=== PATIENT | male | born 1945 ===

== ENCOUNTER 2020-04-19 08:43 | Inpatient (IN) | payer OTHER, MEDICARE, SELFPAY ==
[2020-04-19] VITALS (9 sets, daily range): BP systolic 134–189; BP diastolic 66–106; PULSE 71–93; RESP 16–24; TEMP 33.3–37.3; O2SAT 94–100; BMI 30.8
--- NOTE | 2020-04-19 | ECG_ITS ---
Test Reason : AFIB Blood Pressure : / mmHG Vent. Rate : 083 BPM Atrial Rate : 088 BPM P-R Int : 000 ms QRS Dur : 106 ms QT Int : 364 ms P-R-T Axes : 000 -05 028 degrees QTc Int : 427 ms Atrial fibrillation Incomplete left bundle branch block Abnormal ECG When compared with ECG of 15-SEP-2008 11:36, Atrial fibrillation has replaced Sinus rhythm Referred By: Deisy Hdz Electronically Signed By:FOX PRITCHETT
--- NOTE | 2020-04-19 09:03 | PC.NURSE ---
put pt on monitor. He is in afib. Pt denies HX of afib and has not heard of it before.
--- NOTE | 2020-04-19 09:11 | XR_ITS ---
EXAMINATION: XR CHEST CLINICAL INFORMATION: Shortness of breath COMPARISON: 03/13/2010 TECHNIQUE: Frontal view of the chest was obtained. FINDINGS: New from the prior study in 2009, there is diffuse coarse interstitial opacity throughout the lungs with some patchy areas of more confluent airspace opacity particularly at the right lung base. A tiny right pleural effusion may be present. Cardiomediastinal silhouette within normal limits for technique. Degenerative changes of the shoulders. XR/XR chest 1V IMPRESSION: New diffuse coarse interstitial opacity throughout the lungs, with patchy areas of more confluent airspace opacity particularly at the right lung base. Although the appearance is nonspecific and could represent an infectious or inflammatory etiology, as well as interstitial pulmonary edema with developing alveolar pulmonary edema, in the appropriate clinical setting viral COVID pneumonitis is a consideration.
--- NOTE | 2020-04-19 09:15 | ED.SOB ---
HPI - SOB/Dyspnea General Chief Complaint: Upper Respiratory Symptoms Stated Complaint: sob Time Seen by Provider: 04/19/20 08:47 History of Present Illness HPI Narrative: Patient is a 74-year-old male with a history of hypertension reflux with multiple medication for hypertension. Presents today with having increasing shortness of breath. Patient denies having chest pain. No leg swelling. No coughing or congestion or upper respiratory symptoms. No fever no chills. No diaphoresis. Patient from home. MD elicited complaint: shortness of breath and cough Pertinent past history: asthma Related Data Home oxygen amount: none Home Medications Medication Instructions Recorded Confirmed allopurinol 100 mg tablet 100 mg PO DAILY 03/23/20 03/23/20 cholecalciferol (vitamin D3) 25 25 mcg PO DAILY 03/23/20 03/23/20 mcg (1,000 unit) capsule Previous Rx's Medication Instructions Recorded metoprolol succinate 100 mg 100 mg PO DAILY 90 Days #90 tab 01/19/20 tablet,extended release 24 hr lisinopril 40 mg tablet 40 mg PO DAILY #30 tab 03/23/20 Allergies Allergy/AdvReac Type Severity Reaction Status Date / Time amlodipine AdvReac Intermediate leg Verified 03/23/20 09:21 swelling Environmental Allergy Mild ITCHY EYES Uncoded 01/05/20 14:48 pollen Allergy Unknown p Uncoded 03/23/20 09:21 RAGWEED Allergy Unknown STUFFY Uncoded 01/05/20 14:48 NOSE WATERY EYES weed Allergy Unknown p Uncoded 03/23/20 09:21 Review of Systems Review of Systems: Constitutional: No Weight loss, No Fever, No Chills, No Night Sweats, No Fatigue, No Malaise ENT/Mouth: No Hearing loss, No Ear Pain, No Nasal Congestion, No Sinus Pain, No Hoarseness, No sore throat, No Rhinorrhea, No Swallowing Difficulty Eyes: No Eye Pain, No Swelling, No Redness, No Foreign Body, No Discharge, No Vision Changes Cardiovascular: No Chest Pain, positive SOB, No Dyspnea on Exertion, No Orthopnea, No Edema, No Palpitations Respiratory: No Cough, No Sputum, positive Wheezing, No Smoke Exposure, positive Dyspnea Gastrointestinal: No Nausea, No Vomiting, No Diarrhea, No Constipation, No abdominal Pain, No Hematochezia, No Melena Genitourinary: no irregular bleeding, No Dysuria, No Urinary Frequency, No Hematuria, No Urinary Incontinence, No Urgency, No Flank Pain, No Urinary Flow Changes, No Hesitancy Musculoskeletal: No joint pain, No Myalgias, No Joint Swelling Skin: No Skin Lesions, No rash Neuro: No Weakness, No Numbness, No Paresthesias, No Loss of Consciousness, No Dizziness, No Headache Psych: No Anxiety/Panic, No Depression, No SI/HI/AH/VH, No Social Issues, Heme/Lymph: No Bruising, No Bleeding,No Lymphadenopathy Endocrine: No Polyuria, No Polydipsia, No Temperature Intolerance [facility] Past Medical History Attestation statement: The following information was validated with the patient. Medical History BPH (benign prostatic hyperplasia) Cervical radiculopathy due to degenerative joint disease of spine Chronic prostatitis GERD (gastroesophageal reflux disease) Gout History of rib fracture Hypercholesterolemia Hypertension Obesity (BMI 30-39.9) Osteoarthritis Vitamin D deficiency Social History Social History Alcohol intake: current Alcohol intake frequency: a few times a week Alcohol type: beer Smoking Status: Never smoker Smoked in Last 30 Days: No Use of substances other than those prescribed or required for medical reasons: No Advance Directives: No Advance Directives Information Provided: No Physical Exam Vital Signs: Vital Signs: Last Vital Signs Temp 99.2 F 04/19/20 11:40 Pulse 89 04/19/20 11:40 Resp 21 H 04/19/20 11:40 BP 134/76 04/19/20 11:40 Pulse Ox 100 04/19/20 11:40 Body Mass Index 30.8 Appearance: Alert. Oriented X3. No acute distress. Eyes: Pupils equal, round and reactive to light. ENT: Pharynx normal. Neck: Normal inspection. Neck supple. No lymph nodes noted. No crepitus CVS: Normal heart rate and rhythm. Pulses normal. Normal S1 and S2 Respiratory: No respiratory distress. Breath sounds normal. Diminished. Positive Wheezing. No rales Abdomen: Soft and nontender. No rigidity. No distention. good BS x4 Skin: Skin warm and dry. Normal skin color. Normal skin turgor. Extremities: No lower extremity edema. Neurovascular intact to all extremities. No Lacerations. No Rash Neuro: Oriented X 3. No motor deficit. No sensory deficit. Moving all extermities. No slurred speech MDM - SOB/Dyspnea MDM Narrative Medical decision making narrative: Patient's EKG showed an atrial fibrillation pattern heart rate is controlled at 75. Patient has no history of atrial fibrillation. Patient's chest x-ray consistent with having bilateral infiltrate CHF. Will start patient on Lasix. Patient's coronavirus test was negative. Patient likely got into an atrial fibrillation pattern and loss of atrial kick. Then went to congestive heart failure. D-dimer is elevated will get a CT scan of the chest to rule out the possibility of PE. Patient is being admitted for new onset atrial fibrillation Differential Diagnosis Differential diagnosis: Likely acute exacerbation of chronic obstructive airways disease, congestive heart failure, pneumonia, asthma with exacerbation, pulmonary embolism and pleural effusion Medical Records Attestation: I reviewed the patient's medical records. Lab Data Attestation: I reviewed the patient's lab results. Result diagrams: 04/19/20 09:40 04/19/20 09:40 Labs: Lab Results 04/19/20 04/19/20 04/19/20 Range/Units 09:40 09:40 09:40 WBC 6.6 (4.8-10.8) X10*3/uL RBC 4.30 L (4.60-5.80) X10*6/uL Hgb 13.7 L (14.0-18.0) g/dl Hct 41.4 L (42-52) % MCV 96.3 (80-98) fL MCH 31.9 (27.0-33.0) pg MCHC 33.1 (31.0-36.0) g/dl RDW 14.3 (11.0-16.0) % Plt Count 159 L (160-400) X10*3/uL MPV 11.0 (9.4-12.4) fL Immature Gran % (Auto) 0.3 (0.0-0.4) % Neut % (Auto) 74.6 H (45-73) % Lymph % (Auto) 15.5 L (20-40) % Morgan % (Auto) 8.6 (2-11) % Eos % (Auto) 0.8 (0-4) % Baso % (Auto) 0.2 (0-2) % Lymph # (Auto) 1.0 L (1.2-4.9) X10*3/uL Morgan # (Auto) 0.6 (0.1-1.2) X10*3/uL Eos # (Auto) 0.1 (0.0-0.4) X10*3/uL Baso # (Auto) 0.0 (0.0-0.2) X10*3/uL Abs Immat Gran (auto) 0.02 (0.00-0.03) X10*3/uL Absolute Neuts (auto) 4.9 (2.0-8.3) X10*3/uL Absolute Nucleated RBC 0.000 (0.0-0.012) X10*3/uL Nucleated RBC % (auto) 0.0 (0.0-0.2) /100WBC D-Dimer 418 NG/ML Hold Blue Top SEE NOTE Sodium 141 (135-145) mmol/L Potassium 3.7 (3.3-5.1) mmol/l Chloride 106 (96-108) mmol/L Carbon Dioxide 26 (22-29) mmol/L Anion Gap 13 (12-20) BUN 19 H (9-16) mg/dL Creatinine 0.95 (0.5-1.4) mg/dL Estim Creat Clear Calc 68.2 Estimated GFR > 60 Random Glucose 119 H (60-115) mg/dL Calcium 8.4 (8.4-10.2) mg/dL Total Bilirubin 0.7 (0.0-1.0) mg/dL Direct Bilirubin 0.3 (0.0-0.5) mg/dL AST 19 (5-37) U/L ALT 21 (0-40) U/L Alkaline Phosphatase 76 (39-117) U/L Troponin I High Sens (<3.5-35.0) ng/L B-Natriuretic Peptide (<100) pg/mL Total Protein 6.5 (6.5-8.0) g/dL Albumin 4.0 (3.5-5.0) g/dL Coronavirus (PCR) (Negative) Influenza Type A (PCR) (Negative) Influenza Type B (PCR) (Negative) RSV RNA Qual (PCR) (Negative) 04/19/20 04/19/20 Range/Units 09:40 09:40 WBC (4.8-10.8) X10*3/uL RBC (4.60-5.80) X10*6/uL Hgb (14.0-18.0) g/dl Hct (42-52) % MCV (80-98) fL MCH (27.0-33.0) pg MCHC (31.0-36.0) g/dl RDW (11.0-16.0) % Plt Count (160-400) X10*3/uL MPV (9.4-12.4) fL Immature Gran % (Auto) (0.0-0.4) % Neut % (Auto) (45-73) % Lymph % (Auto) (20-40) % Morgan % (Auto) (2-11) % Eos % (Auto) (0-4) % Baso % (Auto) (0-2) % Lymph # (Auto) (1.2-4.9) X10*3/uL Morgan # (Auto) (0.1-1.2) X10*3/uL Eos # (Auto) (0.0-0.4) X10*3/uL Baso # (Auto) (0.0-0.2) X10*3/uL Abs Immat Gran (auto) (0.00-0.03) X10*3/uL Absolute Neuts (auto) (2.0-8.3) X10*3/uL Absolute Nucleated RBC (0.0-0.012) X10*3/uL Nucleated RBC % (auto) (0.0-0.2) /100WBC D-Dimer NG/ML Hold Blue Top Sodium (135-145) mmol/L Potassium (3.3-5.1) mmol/l Chloride (96-108) mmol/L Carbon Dioxide (22-29) mmol/L Anion Gap (12-20) BUN (9-16) mg/dL Creatinine (0.5-1.4) mg/dL Estim Creat Clear Calc Estimated GFR Random Glucose (60-115) mg/dL Calcium (8.4-10.2) mg/dL Total Bilirubin (0.0-1.0) mg/dL Direct Bilirubin (0.0-0.5) mg/dL AST (5-37) U/L ALT (0-40) U/L Alkaline Phosphatase (39-117) U/L Troponin I High Sens 4.3 (<3.5-35.0) ng/L B-Natriuretic Peptide 352 H (<100) pg/mL Total Protein (6.5-8.0) g/dL Albumin (3.5-5.0) g/dL Coronavirus (PCR) NEGATIVE (Negative) Influenza Type A (PCR) NEGATIVE (Negative) Influenza Type B (PCR) NEGATIVE (Negative) RSV RNA Qual (PCR) NEGATIVE (Negative) ECG Data Interpretation: Atrial fibrillation heart rate is [address] segment elevation noted. Discharge Plan Discharge Clinical Impression: Atrial fibrillation Patient Disposition: Admitted As Inpatient Prescriptions: No Action metoprolol succinate 100 mg tablet extended release 24 hr 100 mg PO DAILY 90 Days Qty: 90 RF: 2 cholecalciferol (vitamin D3) 25 mcg (1,000 unit) capsule 25 mcg PO DAILY RF: 0 allopurinol 100 mg tablet 100 mg PO DAILY RF: 0 lisinopril 40 mg tablet 40 mg PO DAILY Qty: 30 RF: 3
[2020-04-19] MEDS: Aspirin 81 MG TAB.CHEW 324 MG PO (09:56)
[2020-04-19 10:14] LABS: MANUAL DIFF FLAG NO
[2020-04-19 10:16] LABS: Basophils Percent Auto 0.2 % (0-2); Eosinophils Absolute Auto 0.1 X10*3/uL (0.0-0.4); Eosinophils Percent Auto 0.8 % (0-4); Hematocrit 41.4 % (42-52); Hemoglobin 13.7 g/dl (14.0-18.0); Imm Gran Abs Auto 0.02 X10*3/uL (0.00-0.03); Imm Gran Pct Auto 0.3 % (0.0-0.4); Lymphocytes Percent Auto 15.5 % (20-40); Mean Corpuscular HGB Conc 33.1 g/dl (31.0-36.0); Mean Corpuscular Hemoglobin 31.9 pg (27.0-33.0); Mean Corpuscular Volume 96.3 fL (80-98); Monocytes Absolute Auto 0.6 X10*3/uL (0.1-1.2); Monocytes Percent Auto 8.6 % (2-11); Neutrophils Absolute Auto 4.9 X10*3/uL (2.0-8.3); Neutrophils Percent Auto 74.6 % (45-73); Platelet Count 159 X10*3/uL (160-400); Red Cell Distribution Width 14.3 % (11.0-16.0); White Blood Count 6.6 X10*3/uL (4.8-10.8)
[2020-04-19 10:28] LABS: D Dimer 418 NG/ML
[2020-04-19 10:32] LABS: Influenza A PCR NEGATIVE (Negative); Influenza B PCR NEGATIVE (Negative); Resp Syncy Virus RNA Qual PCR NEGATIVE (Negative); SARS COV2 PCR INHOUSE NEGATIVE (Negative)
[2020-04-19 10:49] LABS: Alanine Aminotransferase 21 U/L (0-40); Alkaline Phosphatase 76 U/L (39-117); Anion Gap 13 (12-20); Aspartate Amino Transferase 19 U/L (5-37); Bilirubin Direct 0.3 mg/dL (0.0-0.5); Bilirubin Total 0.7 mg/dL (0.0-1.0); Blood Urea Nitrogen 19 mg/dL (9-16); Calcium 8.4 mg/dL (8.4-10.2); Carbon Dioxide 26 mmol/L (22-29); Chloride 106 mmol/L (96-108); Creatinine Clr Calc Pharmacy 68.2; Estimated Glomerular Filt Rate > 60; Glucose Random 119 mg/dL (60-115); Potassium 3.7 mmol/l (3.3-5.1); Sodium 141 mmol/L (135-145); Total Protein 6.5 g/dL (6.5-8.0)
[2020-04-19 10:52] LABS: B Type Natriuretic Peptide 352 pg/mL (<100); Troponin-I High Sensitivity 4.3 ng/L (<3.5-35.0)
--- NOTE | 2020-04-19 11:28 | CT_ITS ---
EXAMINATION: CT ANGIOGRAM OF THE CHEST WITH AND WITHOUT CONTRAST (CT PULMONARY ANGIOGRAM FOR PE) CLINICAL INFORMATION: Reason for Exam sob COMPARISON: None TECHNIQUE: Prior to contrast administration, noncontrast localization images were obtained. Subsequently, multidetector volumetric imaging was performed from the thoracic inlet to below the diaphragms following the administration of 80 mL Omnipaque 350 intravenous contrast. No contrast reaction reported Sagittal, coronal, and MIP oblique sagittal reformatted images were obtained on the CT workstation, uploaded to PACS, and reviewed. This CT examination was performed using dose optimization techniques as appropriate, variously including the following: *Automated exposure control *Adjustment of mA and/or kV according to patient size (this includes techniques or standardized protocols for targeted exams where dose is matched to indication/reason for exam; i.e. extremities or head) *Use of iterative reconstruction technique Total exam dose-length product 327 mGy-cm FINDINGS: QUALITY OF STUDY/CONTRAST BOLUS: Satisfactory. PULMONARY ARTERIES: No central or segmental pulmonary emboli. THORACIC AORTA: No aneurysm or dissection. LUNG: The lungs are well-inflated with multiple small ill-defined groundglass densities in both upper lobes, lower lobes, lingula. In addition there there are atelectatic changes in the lingula, right middle lobe and dependent both lower lobes. Also visualized is right upper lobe subpleural parenchymal thickening and/or scarring. The largest nodule in the left lower lobe measures 8mm axial image 45/5 and the largest nodule right upper lobe measures 6 mm on axial image 14/5. PLEURA: Small bilateral pleural effusions. No pleural thickening or calcification seen. MEDIASTINUM: Heart size and the great vessels are normal caliber. The central trachea and bronchi are widely patent. There are small reactive 9 mm and less pretracheal and aortic window lymph nodes. The thyroid lobes are symmetrical and normal. No evidence of septal bowing or right heart strain. CHEST WALL/AXILLA: No axillary or internal mammary lymphadenopathy. OSSEOUS STRUCTURES: There are degenerative disc changes and ventral spondylosis throughout dorsal spine. UPPER ABDOMEN: There is a 1.7 cm lesion right hepatic lobe. No reflux of contrast into the hepatic veins to suggest elevated right heart pressures. CT/CT angio chest PE protocol IMPRESSION: Bilateral small ill-defined groundglass densities throughout both lungs but no confluent consolidation seen. Findings are most suggestive of inflammatory or infectious etiology. There are small bilateral pleural effusions. There are reactive mediastinal lymph nodes. VTE: negative
[2020-04-19] MEDS: Furosemide 40 MG/4 ML VIAL IVPUSH (12:10)
[2020-04-19] MEDS: iohexoL 350 MG/ML 100 ML INFUS..BTL 65 ML IV (12:38)
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
[2020-04-19 15:21] LABS: Thyroid Stimulating Hormone 0.86 uIU/mL (0.32-4.0)
--- NOTE | 2020-04-19 16:54 | PM.EVENT ---
Event Note Date of Service: 04/19/20 Event Note: Patient seen and examined. Case discussed with KAYY Arroyo. Agree with her history and physical + plan as documented above In brief, 74-year-old male with a past medical history of hypertension who presents to the hospital complaints of shortness of breath of 1 day duration. No associated cough or fevers. No chest pain or palpitations. No Known COVID-19 positive contacts. BNP elevated and found to be in new onset A. Fib (no RVR). Denies any weight gain, denies known cardiac history. No CAD/CHF/A. Fib reported. A/P 74 yo presenting with shortness of breath and newly diagnosed a. fib. Reported improvement with iv lasix in the ED COVID 19 negative IV lasix, i/o cardiology consult start eliquis 5mg BID, risks/benefits d/w the patient; CHADSVAC at least 3 (age + HTN history) remainder per H&P
[2020-04-19] MEDS: 0.9 % Sodium Chloride Flush 3 ML SYRINGE IVFLUSH (22:03)
[2020-04-19] MEDS: Apixaban 5 MG TABLET PO (22:03)
[2020-04-20] VITALS (10 sets, daily range): BP systolic 155–192; BP diastolic 76–90; PULSE 67–81; RESP 18–20; TEMP 36.5–37.1; O2SAT 97–99
[2020-04-20] MEDS: 0.9 % Sodium Chloride Flush 3 ML SYRINGE IVFLUSH ×4 (00:48→20:41)
--- NOTE | 2020-04-20 04:51 | PC.NURSE ---
Patient's BP at 04:00AM was 176/80 from previous 158/76. Patient asymptomatic, notified. Will continue to monitor
[2020-04-20 07:50] LABS: Hematocrit 41.4 % (42-52); Hemoglobin 13.8 g/dl (14.0-18.0); Imm Gran Abs Auto 0.03 X10*3/uL (0.00-0.03); Imm Gran Pct Auto 0.4 % (0.0-0.4); Lymphocytes Absolute Auto 0.5 X10*3/uL (1.2-4.9); Lymphocytes Percent Auto 7.8 % (20-40); MANUAL DIFF FLAG SCAN; Mean Corpuscular HGB Conc 33.3 g/dl (31.0-36.0); Mean Corpuscular Hemoglobin 31.5 pg (27.0-33.0); Mean Corpuscular Volume 94.5 fL (80-98); Mean Platelet Volume 11.1 fL (9.4-12.4); Monocytes Absolute Auto 0.4 X10*3/uL (0.1-1.2); Monocytes Percent Auto 5.4 % (2-11); Neutrophils Absolute Auto 5.8 X10*3/uL (2.0-8.3); Neutrophils Percent Auto 86.4 % (45-73); Platelet Count 207 X10*3/uL (160-400); Red Blood Count 4.38 X10*6/uL (4.60-5.80); Red Cell Distribution Width 14.1 % (11.0-16.0); SCAN SMEAR FLAG 1; White Blood Count 6.7 X10*3/uL (4.8-10.8)
[2020-04-20 08:15] LABS: Anion Gap 15 (12-20); Blood Urea Nitrogen 17 mg/dL (9-16); Calcium 8.6 mg/dL (8.4-10.2); Carbon Dioxide 27 mmol/L (22-29); Chloride 105 mmol/L (96-108); Estimated Glomerular Filt Rate > 60; Glucose Random 134 mg/dL (60-115); Potassium 3.9 mmol/l (3.3-5.1); Sodium 143 mmol/L (135-145)
[2020-04-20 08:21] LABS: SLIDE REVIEW VERIFIED
[2020-04-20] MEDS: lisinopriL 40 MG TABLET PO (08:59)
[2020-04-20] MEDS: Apixaban 5 MG TABLET PO ×2 (08:59→20:41)
[2020-04-20] MEDS: Metoprolol Succinate ER 100 MG TAB.ER.24H PO (09:00)
[2020-04-20] MEDS: allopurinoL 100 MG TABLET PO (09:00)
[2020-04-20] MEDS: Furosemide 40 MG/4 ML VIAL IVPUSH (09:01)
--- NOTE | 2020-04-20 10:21 | HO.PM.IMPN ---
Subjective Subjective Date of Service: 04/20/20 Interval History: seen and examined feeling better post lasix yesterday reports ambulating to the kaminski without issues concerned about his BP, but denies any cp or rocha. ROS General - no fevers or chills Cardiovascular - no chest pain Respiratory - no shortness of breath or cough Abdominal- no abdominal pain, nausea, vomiting, diarrhea Physical Exam Vital Signs: Vital Signs: Last Vital Signs Temp 98 F 04/20/20 07:18 Pulse 81 04/20/20 08:59 Resp 20 04/20/20 07:18 BP 180/90 H 04/20/20 09:00 Pulse Ox 99 04/20/20 07:18 Body Mass Index 30.8 Const: Other: General - no acute distress, appears comfortable Cardiovascular - IRR Lungs - no distress, no rales/rhonchi appreciated Abdomen - soft, nontender, no rebound or guarding Extremities - no edema bilaterally Neuro - awake and alert, no focal deficits Objective Data Current Medications Generic Name Dose Route Start Last Admin Trade Name Freq PRN Reason Stop Dose Admin Acetaminophen 650 mg 04/19/20 14:14 Acetaminophen 325 Mg Tablet PO Q6H PRN Pain, Mild (Pain Scale 1-3) Allopurinol 100 mg 04/20/20 09:00 04/20/20 09:00 Allopurinol 100 Mg Tablet PO 100 mg DAILY RUPINDER Administration Apixaban 5 mg 04/19/20 21:00 04/20/20 08:59 Apixaban 5 Mg Tablet PO 5 mg BID RUPINDER Administration Docusate Sodium 100 mg 04/19/20 14:14 Docusate Sodium 100 Mg Capsule PO DAILY PRN Constipation Furosemide 40 mg 04/20/20 09:00 04/20/20 09:01 Furosemide 40 Mg/4 Ml Vial IVPUSH 40 mg DAILY RUPINDER Administration Protocol Lisinopril 40 mg 04/20/20 09:00 04/20/20 08:59 Lisinopril 40 Mg Tablet PO 40 mg DAILY RUPINDER Administration Protocol Metoprolol Succinate 100 mg 04/20/20 09:00 04/20/20 09:00 Metoprolol Succinate Er 100 Mg Tab.Er.24h PO 100 mg DAILY RUPINDER Administration Protocol Ondansetron HCl 4 mg 04/19/20 14:14 Ondansetron Hcl 4 Mg/2 Ml Vial IVPUSH Q8H PRN Nausea and Vomiting Pharmacy Consult 1 each 04/19/20 11:49 Consult Rx Perform Med Rec MISCELLANE ONCE PRN Consult order Sodium Chloride 3 ml 04/19/20 21:40 04/20/20 09:00 0.9 % Sodium Chloride Flush 3 Ml Syringe IVFLUSH 3 ml QSHIFT RUPINDER Administration Labs CBC & Chem 7: 04/20/20 06:04 04/20/20 06:04 Assessment and Plan (1) Atrial fibrillation: Status: Acute Assessment and Plan: This is a 74-year-old male history of hypertension and gout who presents to the emergency department with shortness of breath found to have new onset atrial fibrillation 1. Shortness of breath improved possibly related to new onset CHF IV lasix, I/O cardiology evaluation echo 2. A. Fib, new onset afib, new onset Eliquis 3. HTN uncontrolled metoprolol, lisinopril add back norvasc if remains uncontrolled 4. Gout continue allopurinol Full Code DVT pptx, started on Eliquis for A. Fib
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
[2020-04-20] MEDS: amLODIPine Besylate 5 MG TABLET PO (12:42)
--- NOTE | 2020-04-20 14:52 | MHC.CM.PN ---
spoke with pts violet lau [phone] who explins that prior to admisison pt was living with hiswife and had no services it is not anticapted that pt will need servceis when dcd family will transport pt home
--- NOTE | 2020-04-20 15:56 | PC.NURSE ---
Pt very pleasent, alert and oriented. Pt getting IV lasix 40 mg BID. After am dose into afternoon pt voided >1000ml. Pt lungs in am having fine crackles in bases; during 1600 assessment rn lungs sounded a bit better. Pt stating breathing is much better than yesterday. Pt denies SOB but RN witnessing some slight CABALLERO when pt ambulating in room. Pt steady with ambulation, low fall risk. No complaints at this time. PT remains in afib HR 60-70s most of the day. BP in am SBP 180, at noon SBP around 160 - pt did complain of slight headache at this time, had ordered 5 Norvasc - administered. Pt after did say his slight headache did go away. Pt has no other complaints at this time. Resting comfortably. Cont w./current plan at this time.
--- NOTE | 2020-04-20 22:35 | PC.NURSE ---
Elainenet's BP at 20:00 taken by automatic BP 192/85, retook BP manually 179/80.Patient is asymptomatic. was notified. Will continue to monitor.
[2020-04-21] VITALS (7 sets, daily range): BP systolic 154–175; BP diastolic 80–96; PULSE 62–74; RESP 16–20; TEMP 36.1–36.8; O2SAT 96–98
[2020-04-21] MEDS: 0.9 % Sodium Chloride Flush 3 ML SYRINGE IVFLUSH (08:54)
[2020-04-21] MEDS: amLODIPine Besylate 10 MG TABLET PO (08:54)
[2020-04-21] MEDS: Metoprolol Succinate ER 100 MG TAB.ER.24H PO (08:54)
[2020-04-21] MEDS: Apixaban 5 MG TABLET PO (08:54)
[2020-04-21] MEDS: allopurinoL 100 MG TABLET PO (08:55)
[2020-04-21] MEDS: lisinopriL 40 MG TABLET PO (08:55)
--- NOTE | 2020-04-21 11:23 | P.PNCA_ITS ---
Subjective Subjective Date of Service: 04/21/20 Interval history: He states that he feels okay. Shortness of breath is better. No palpitations. No anginal-type symptoms. Tolerating anticoagulation. Review of Systems Review of Systems Yes all other systems are reviewed and are negative Cardiovascular: Reports as per HPI, Denies chest pain, Denies chest pain at rest, Denies chest pain with activity, Denies syncope, Denies irregular heart rhythm, Denies leg ulcers, Denies leg edema, Denies lightheadedness, Denies radiating jaw, neck or arm pain, Denies palpitations and Reports dyspnea on exertion Respiratory: Reports dyspnea on exertion Denies syncope Endocrine: Denies palpitations Physical Exam Vital Signs: Last Vital Signs Temp 97.6 F 04/21/20 08:22 Pulse 66 04/21/20 08:55 Resp 16 04/21/20 08:22 BP 175/86 H 04/21/20 08:55 Pulse Ox 97 04/21/20 08:22 Body Mass Index 30.8 Const General: cooperative, comfortable and no acute distress Orientation/consciousness: patient oriented x3 HENMT Other: Unremarkable Neck Neck: Yes normal visual inspection Chest Chest palpation & inspection: normal inspection of the chest Resp Auscultation: clear to auscultation bilaterally, no crackles and no wheezes Cardio Jugular venous distension: no JVD Palpation: normal PMI Heart sounds: S1 normal heart sound present, S2 normal heart sound present, no gallops, no murmurs and no rubs GI Palpation (GI): Soft to palpation Back/Spine/Pelvis Other: unremarkable Skin General skin exam: no rashes or lesions noted Neuro General: patient oriented x3 Extrem General: Yes no clubbing, cyanosis or edema Psych Mental Status: mental status grossly normal Results Labs and Meds Result diagrams: 04/20/20 06:04 04/20/20 06:04 Progress Note: A&P Assessment and plan (1) Atrial fibrillation: Status: Acute (2) Shortness of breath: Status: Acute (3) Hypertension: Status: Acute Assessment and Plan: Atrial fibrillation of uncertain duration. He also has poorly controlled hypertension. He is already on beta-blockers at metoprolol XL 100 mg daily. Rate seems reasonably well controlled. However, blood pressure is still high. Amlodipine dose has been increased to 10 mg daily. May need additional medications like spironolactone. Otherwise he is on Eliquis and seems to be tolerating that well. Will await echocardiogram there is getting completed today. Possibly discharge pending that and we will arrange outpatient follow- up. Fall Risk Details Current Medications: Current Medications Generic Name Dose Route Start Last Admin Trade Name Florencioq PRN Reason Stop Dose Admin Acetaminophen 650 mg 04/19/20 14:14 Acetaminophen 325 Mg Tablet PO Q6H PRN Pain, Mild (Pain Scale 1-3) Allopurinol 100 mg 04/20/20 09:00 04/21/20 08:55 Allopurinol 100 Mg Tablet PO 100 mg DAILY RUPINDER Administration Amlodipine Besylate 10 mg 04/21/20 09:00 04/21/20 08:54 Amlodipine Besylate 10 Mg Tablet PO 10 mg DAILY RUPINDER Administration Protocol Apixaban 5 mg 04/19/20 21:00 04/21/20 08:54 Apixaban 5 Mg Tablet PO 5 mg BID RUPINDER Administration Docusate Sodium 100 mg 04/19/20 14:14 Docusate Sodium 100 Mg Capsule PO DAILY PRN Constipation Lisinopril 40 mg 04/20/20 09:00 04/21/20 08:55 Lisinopril 40 Mg Tablet PO 40 mg DAILY RUPINDER Administration Protocol Metoprolol Succinate 100 mg 04/20/20 09:00 04/21/20 08:54 Metoprolol Succinate Er 100 Mg Tab.Er.24h PO 100 mg DAILY RUPINDER Administration Protocol Ondansetron HCl 4 mg 04/19/20 14:14 Ondansetron Hcl 4 Mg/2 Ml Vial IVPUSH Q8H PRN Nausea and Vomiting Pharmacy Consult 1 each 04/19/20 11:49 Consult Rx Perform Med Rec MISCELLANE ONCE PRN Consult order Sodium Chloride 3 ml 04/19/20 21:40 04/21/20 08:54 0.9 % Sodium Chloride Flush 3 Ml Syringe IVFLUSH 3 ml QSHIFT RUPINDER Administration Time Spent With Patient Time: Total time spent is greater than 50% in coordination of care (as documented) at patient's floor/unit and/or counseling patient: Time with patient: less than 15 minutes
--- NOTE | 2020-04-21 11:34 | HO.PM.IMPN ---
Subjective Subjective Date of Service: 04/21/20 Interval History: seen and examined breathing easy no chest pain or palp ROS General - no fevers or chills Cardiovascular - no chest pain Respiratory - no shortness of breath or cough Abdominal- no abdominal pain, nausea, vomiting, diarrhea Physical Exam Vital Signs: Vital Signs: Last Vital Signs Temp 97 F 04/21/20 11:25 Pulse 74 04/21/20 11:25 Resp 18 04/21/20 11:25 BP 154/85 H 04/21/20 11:25 Pulse Ox 97 04/21/20 11:25 Body Mass Index 30.8 Const: Other: General - no acute distress, appears comfortable Cardiovascular - IRR Lungs - no distress, no rales/rhonchi appreciated Abdomen - soft, nontender, no rebound or guarding Extremities - no edema bilaterally Neuro - awake and alert, no focal deficits Objective Data Current Medications Generic Name Dose Route Start Last Admin Trade Name Freq PRN Reason Stop Dose Admin Acetaminophen 650 mg 04/19/20 14:14 Acetaminophen 325 Mg Tablet PO Q6H PRN Pain, Mild (Pain Scale 1-3) Allopurinol 100 mg 04/20/20 09:00 04/21/20 08:55 Allopurinol 100 Mg Tablet PO 100 mg DAILY RUPINDER Administration Amlodipine Besylate 10 mg 04/21/20 09:00 04/21/20 08:54 Amlodipine Besylate 10 Mg Tablet PO 10 mg DAILY RUPINDER Administration Protocol Apixaban 5 mg 04/19/20 21:00 04/21/20 08:54 Apixaban 5 Mg Tablet PO 5 mg BID RUPINDER Administration Docusate Sodium 100 mg 04/19/20 14:14 Docusate Sodium 100 Mg Capsule PO DAILY PRN Constipation Lisinopril 40 mg 04/20/20 09:00 04/21/20 08:55 Lisinopril 40 Mg Tablet PO 40 mg DAILY RUPINDER Administration Protocol Metoprolol Succinate 100 mg 04/20/20 09:00 04/21/20 08:54 Metoprolol Succinate Er 100 Mg Tab.Er.24h PO 100 mg DAILY RUPINDER Administration Protocol Ondansetron HCl 4 mg 04/19/20 14:14 Ondansetron Hcl 4 Mg/2 Ml Vial IVPUSH Q8H PRN Nausea and Vomiting Pharmacy Consult 1 each 04/19/20 11:49 Consult Rx Perform Med Rec MISCELLANE ONCE PRN Consult order Sodium Chloride 3 ml 12/31/20 21:40 04/21/20 08:54 0.9 % Sodium Chloride Flush 3 Ml Syringe IVFLUSH 3 ml QSHIFT [facility] Administration Spironolactone 50 mg 04/21/20 12:00 Spironolactone 25 Mg Tablet PO DAILY [facility] Protocol Labs CBC & Chem 7: 04/20/20 06:04 04/20/20 06:04 Assessment and Plan (1) Atrial fibrillation: Status: Acute Assessment and Plan: This is a 74-year-old male history of hypertension and gout who presents to the emergency department with shortness of breath found to have new onset atrial fibrillation 1. Shortness of breath resolved possibly related to new onset CHF - await echo IV lasix, I/O cardiology evaluation echo 2. A. Fib, new onset afib, new onset Eliquis 3. HTN uncontrolled metoprolol, lisinopril, norvasc increased to 10mg 4. Gout continue allopurinol Full Code DVT pptx, started on Eliquis for A. Fib dispo: possible d/c today pending echo
[2020-04-21] MEDS: Spironolactone 25 MG TABLET 50 MG PO (12:30)
--- NOTE | 2020-04-21 13:23 | PM.DS ---
DS: Providers Provider Date of admission: 04/19/20 14:14 Primary care physician: Unknown Physician Consults: 04/19/20 14:14 Consult to Cardiology Routine Consulting Provider: Adin Suarez Reason for consultation: new afib Has provider been notified: No DS: Diagnosis Discharge Diagnosis (1) Atrial fibrillation: Status: Acute (2) Shortness of breath: Status: Acute Problem details: Systolic CHF ruled out (3) Uncontrolled hypertension: Status: Acute DS: Medications Discharge Medications Home Medications: Home Medications Medication Instructions Recorded Confirmed allopurinol 100 mg tablet 100 mg PO DAILY 03/23/20 04/19/20 Previous Rx's Medication Instructions Recorded metoprolol succinate 100 mg 100 mg PO DAILY 90 Days #90 tab 01/19/20 tablet,extended release 24 hr lisinopril 40 mg tablet 40 mg PO DAILY #30 tab 03/23/20 amlodipine [Norvasc] 10 mg PO DAILY #30 tab 04/21/20 apixaban [Eliquis] 5 mg PO BID #60 tab 04/21/20 spironolactone 50 mg PO DAILY #30 tab 04/21/20 DS: Summary Hospital Course Hospital Course: Patient was admitted for new onset AFib and associated shortness of breath. His rate was controlled and so he was continued on his p.o. metoprolol from home. He was initiated on Eliquis 5 mg twice daily as is Jaime Vasc score was 3. He underwent 2D echo evaluation which showed preserved left ventricular ejection fraction but a severely dilated left atrium. Diastolic dysfunction was not able to be determined but given his elevated BNP on admission this may be a possibility. Patient's hospital course was further complicated by uncontrolled hypertension. He had Norvasc re-initiated and subsequently Aldactone was added as well. He will be discharged home with lisinopril 40 mg, metoprolol 100 mg, Norvasc 10 mg, Aldactone 50 mg daily. He will have repeat blood work in 3-4 days. He will be followed up by the Cardiology Clinic for further treatment. Time Spent with Patient Time attestation: Total time spent providing and/or coordinating discharge services: Physical Exam Vital Signs: Vital Signs: Last Vital Signs Temp 97 F 04/21/20 11:25 Pulse 74 04/21/20 12:30 Resp 18 04/21/20 11:25 BP 154/85 H 04/21/20 12:30 Pulse Ox 97 04/21/20 11:25 Body Mass Index 30.8 Const: Other: General - no acute distress, appears comfortable Cardiovascular - IRR Lungs - normal respiratory effort, clear to auscultation bilaterally, no wheezing Abdomen - soft, nontender, no rebound or guarding Extremities - no edema bilaterally Neuro - awake and alert, no focal deficits DS: Data Data Completed and Pending Labs on day of discharge: Laboratory Last Values WBC 6.7 X10*3/uL (4.8-10.8) 04/20/20 06:04 RBC 4.38 X10*6/uL (4.60-5.80) L 04/20/20 06:04 Hgb 13.8 g/dl (14.0-18.0) L 04/20/20 06:04 Hct 41.4 % (42-52) L 04/20/20 06:04 MCV 94.5 fL (80-98) 04/20/20 06:04 MCH 31.5 pg (27.0-33.0) 04/20/20 06:04 MCHC 33.3 g/dl (31.0-36.0) 04/20/20 06:04 RDW 14.1 % (11.0-16.0) 04/20/20 06:04 Plt Count 207 X10*3/uL (160-400) D 04/20/20 06:04 MPV 11.1 fL (9.4-12.4) 04/20/20 06:04 Immature Gran % (Auto) 0.4 % (0.0-0.4) 04/20/20 06:04 Neut % (Auto) 86.4 % (45-73) H 04/20/20 06:04 Lymph % (Auto) 7.8 % (20-40) L 04/20/20 06:04 Coles % (Auto) 5.4 % (2-11) 04/20/20 06:04 Eos % (Auto) 0.0 % (0-4) 04/20/20 06:04 Baso % (Auto) 0.0 % (0-2) 04/20/20 06:04 Lymph # (Auto) 0.5 X10*3/uL (1.2-4.9) L 04/20/20 06:04 Coles # (Auto) 0.4 X10*3/uL (0.1-1.2) 04/20/20 06:04 Eos # (Auto) 0.0 X10*3/uL (0.0-0.4) 04/20/20 06:04 Baso # (Auto) 0.0 X10*3/uL (0.0-0.2) 04/20/20 06:04 Abs Immat Gran (auto) 0.03 X10*3/uL (0.00-0.03) 04/20/20 06:04 Absolute Neuts (auto) 5.8 X10*3/uL (2.0-8.3) 04/20/20 06:04 Absolute Nucleated RBC 0.000 X10*3/uL (0.0-0.012) 04/20/20 06:04 Nucleated RBC % (auto) 0.0 /100WBC (0.0-0.2) 04/20/20 06:04 Smear Tech's Comments VERIFIED 04/20/20 06:04 D-Dimer 418 NG/ML 04/19/20 09:40 Hold Blue Top SEE NOTE 04/19/20 09:40 Sodium 143 mmol/L (135-145) 04/20/20 06:04 Potassium 3.9 mmol/l (3.3-5.1) 04/20/20 06:04 Chloride 105 mmol/L (96-108) 04/20/20 06:04 Carbon Dioxide 27 mmol/L (22-29) 04/20/20 06:04 Anion Gap 15 (12-20) 04/20/20 06:04 BUN 17 mg/dL (9-16) H 04/20/20 06:04 Creatinine 0.81 mg/dL (0.5-1.4) 04/20/20 06:04 Estim Creat Clear Calc 80.0 04/20/20 06:04 Estimated GFR > 60 04/20/20 06:04 Random Glucose 134 mg/dL (60-115) H 04/20/20 06:04 Calcium 8.6 mg/dL (8.4-10.2) 04/20/20 06:04 Magnesium 2.0 mg/dL (1.6-2.6) 04/19/20 09:40 Total Bilirubin 0.7 mg/dL (0.0-1.0) 04/19/20 09:40 Direct Bilirubin 0.3 mg/dL (0.0-0.5) 04/19/20 09:40 AST 19 U/L (5-37) 04/19/20 09:40 ALT 21 U/L (0-40) 04/19/20 09:40 Alkaline Phosphatase 76 U/L (39-117) 04/19/20 09:40 Troponin I High Sens 4.3 ng/L (<3.5-35.0) 04/19/20 09:40 B-Natriuretic Peptide 352 pg/mL (<100) H 04/19/20 09:40 Total Protein 6.5 g/dL (6.5-8.0) 04/19/20 09:40 Albumin 4.0 g/dL (3.5-5.0) 04/19/20 09:40 TSH 0.86 uIU/mL (0.32-4.0) 04/19/20 09:40 Coronavirus (PCR) NEGATIVE (Negative) 04/19/20 09:40 Influenza Type A (PCR) NEGATIVE (Negative) 04/19/20 09:40 Influenza Type B (PCR) NEGATIVE (Negative) 04/19/20 09:40 RSV RNA Qual (PCR) NEGATIVE (Negative) 04/19/20 09:40 Discharge Plan Discharge Patient Disposition: Home, Self-Care Referrals: Adin Suarez MD [Physician] - (call if you dont hear from the clinic) Physician,Unknown [Primary Care Provider] - Discharge Medications: New amlodipine [Norvasc] 10 mg tablet 10 mg PO DAILY Qty: 30 RF: 0 spironolactone 25 mg Tablet 50 mg PO DAILY Qty: 30 RF: 0 Eliquis 5 mg Tablet 5 mg PO BID Qty: 60 RF: 0 Continued metoprolol succinate 100 mg tablet extended release 24 hr 100 mg PO DAILY 90 Days Qty: 90 RF: 2 allopurinol 100 mg tablet 100 mg PO DAILY RF: 0 lisinopril 40 mg tablet 40 mg PO DAILY Qty: 30 RF: 3 Discontinued amlodipine 5 mg tablet 5 mg PO DAILY RF: 0 Discharge Orders: Discharge Order (Routine); Ordered 04/21/20 Ordered By: Carlos Jose Diet: advance to usual diet and low salt diet Activity on Discharge: As tolerated Other Ambulatory Orders: Basic Metabolic Panel (Routine) Timeframe: 20200425 Facility: [facility] - Location: Laboratory Ordered By: Carlos Jose Visit Report Forms: Patient Portal Discharge page Care Plan Goals: To stay healthy and out of the hospital. Health Concerns: A. Fib Uncontrolled HTN Plan of Treatment: A. Fib - continue metoprolol, take Eliquis 5mg twice daily Uncontrolled HTN - Take Metoprolol, Norvasc, Lisinopril, Aldactone, Amlodipine
--- NOTE | 2020-04-21 13:41 | MHC.CM.PN ---
CM CONTACTED PTS DAUGHTER, IAN ([phone]) AND INFORMED HER OF PTS DC. SHE REPORTS THE PT ALREADY CALLED HER BROTHER AND TOLD HIM HE WOULD NEED A RIDE. SHE REPORTS SHE IS NOT IN THE AREA SO HER BROTHER WILL PROVIDE TRANSPORTATION. SHE IS AWARE NO SERVICES WERE ORDERED AND WILL REVIEW THE PTS DC PAPERWORK WHEN HE ARRIVES HOME. PT BEING DISCHARGED HOME TODAY WITH NO NEW SERVICES FAMILY TO TRANSPORT
--- NOTE | 2020-04-21 14:14 | CA_ITS ---
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 The visually estimated ejection fraction is between 55-60%. - The left atrium is severely dilated. - There is mild calcification of the aortic valve. - There is mild to moderate mitral valve regurgitation. - Mild pulmonary hypertension is present. Findings Left Ventricle Normal left ventricular cavity size. There is moderately increased left ventricular wall thickness. The left ventricular systolic function is normal. The visually estimated ejection fraction is between 55-60%. There is no evidence of regional wall motion abnormalities. Diastolic function is indeterminate on the basis of available data. Right Ventricle Normal right ventricular cavity size and systolic function. Atria The left atrium is severely dilated. The right atrium is normal in size. Aortic Valve There is a normal trileaflet aortic valve. There is mild calcification of the aortic valve. There is no aortic valve stenosis. There is no aortic valve regurgitation. Mitral Valve There is mild mitral annular calcification. There is mild to moderate mitral valve regurgitation. There is no mitral valve stenosis. Pulmonic Valve The pulmonic valve was not well visualized. Tricuspid Valve Normal tricuspid valve structure. There is mild tricuspid valve regurgitation. The right ventricular systolic pressure is 44 mmHg. Mild pulmonary hypertension is present. Great Vessels The aortic annulus, sinuses of valsalva, and asc aorta are normal in size. Venous The inferior vena cava is normal in size and collapses greater than 50% with inspiration. Pericardium/Pleural There is no evidence of pericardial effusion. Prior Study Comparison Changes noted compared to prior study dated: 09/16/2008. Increase in left atrial size. Mitral regurgitation is new. Measurements 2D Linear Measurements IVSd: 1.30 0.6-0.9/0.6-1.0 cm LVIDd: 4.74 3.9-5.3/4.2-5.9 cm LVIDd Index: 2.42 2.4-3.2/2.2-3.1 cm/m2 LVIDs: 3.36 2.0-3.6 cm LVPWd: 1.31 0.7-1.1 cm Ao Root: 3.00 2.1-3.5 cm LA Diam: 3.80 2.7-3.8/3.0-4.0 cm LAIDs Index: 1.94 1.5-2.3 cm/m2 LV Mass: 302.19 67-162/88-224 g LV Mass Index: 154.18 43-95/49-115 g/m2 LVOT Diam: 2.10 3.0+(-)1.3 cm 2D Systolic Function EF 4C: 42.00 >55% EF 2C: 57.50 >55% Mitral Valve MV Pk E: 1.16 MV Decel Time: 237.00 E'Lateral: 11.70 E'Medial: 10.20 E/E' Med: 11.40 E/E' Lat: 9.90 PHT: 70.00 MVA PHT: 3.14 Decel [place]: 4.90 MR Vol - PW Dopp: 39.16 MR VTI: 1.78 MR ERO: 22.00 MR Alias Giuseppe: 0.40 MR RAD: 0.70 Aortic Valve AoV Pk Giuseppe: 1.38 AoV Mn Giuseppe: 0.88 AoV VTI: 0.28 AoV Pk Grad: 8.00 Aov Mn Grad: 4.00 XENIA Cont.VTI: 2.63 AI Pk Giuseppe: 1.34 AI VTI: 0.26 LVOT LVOT Pk Giuseppe: 1.07 LVOT Mn Giuseppe: 0.69 LVOT VTI: 0.22 LVOT Pk Grad: 5.00 LVOT Mn Grad: 2.00 LVOT Diam: 2.10 LVOT Area: 3.46 Diastolic Function MV Pk E: 1.16 E'Medial: 10.20 E/E' Med: 11.40 E' Laterial: 11.70 E/E' Lat: 9.90 Tricuspid Valve TR Pk Giuseppe: 3.22 TR Pk Grad: 41.00 RA Press: 3.00 RVSP: 44.00 Great Vessels Aorta Ao Root-2D: 3.00 2.0-3.7 cm Ao Asc: 3.50 2.1-3.4 cm Pulmonary Valve PV Pk Giuseppe: 0.81 Peak PV Grad: 3.00 Updated in Other Vendor System with Status of Final Adin Suarez MD electronically signed on 04/21/2020 12:15:00 PM with status of Final
== END 2020-04-21 14:16 | disposition home or self-care (01) | DRG 201 ==
LOC: HO.ED 12:04 → HO.IMC 19:22
PROVIDERS: Physician Assistant Medical; Admitting Provider Family Medicine; Emergency Provider Emergency Medicine Emergency Medical Services; PCP Internal Medicine; Visit Provider Family Medicine
DX: I48.0 Paroxysmal atrial fibrillation (principal); I10 Essential (primary) hypertension; K21.9 Gastro-esophageal reflux disease without esophagitis; M10.9 Gout, unspecified; Z87.891 Personal history of nicotine dependence; Z20.828 Contact with and (suspected) exposure to other viral communicable diseases; Z79.01 Long term (current) use of anticoagulants; Z79.899 Other long term (current) drug therapy
CPT/HCPCS: 0241U; 36415; 71045; 71275; 80048; 80076; 83735; 83880; 84443; 84484; 85025; 85379; 93005; 93306; 94640; 94644; 96365; 96375; 99285; J1940; J2930; Q9967

== ENCOUNTER 2020-05-01 10:09 | Outpatient (REF) | payer OTHER, MEDICARE, SELFPAY ==
[2020-05-01 12:18] LABS: Hematocrit 47.1 % (42-52); Hemoglobin 15.7 g/dl (14.0-18.0); Mean Corpuscular HGB Conc 33.3 g/dl (31.0-36.0); Mean Corpuscular Hemoglobin 31.2 pg (27.0-33.0); Mean Corpuscular Volume 93.6 fL (80-98); Mean Platelet Volume 10.9 fL (9.4-12.4); Platelet Count 239 X10*3/uL (160-400); Red Blood Count 5.03 X10*6/uL (4.60-5.80); Red Cell Distribution Width 13.3 % (11.0-16.0)
[2020-05-01 12:34] LABS: Anion Gap 11 (12-20); Blood Urea Nitrogen 16 mg/dL (9-16); Calcium 9.5 mg/dL (8.4-10.2); Carbon Dioxide 28 mmol/L (22-29); Chloride 107 mmol/L (96-108); Estimated Glomerular Filt Rate > 60; Glucose Random 85 mg/dL (60-115); Potassium 4.3 mmol/l (3.3-5.1); Sodium 142 mmol/L (135-145)
== END 2020-05-01 10:10 | disposition home or self-care (01) ==
LOC: HO.LAB 10:09
PROVIDERS: Absent Provider Family Medicine; PCP Internal Medicine; Visit Provider Nurse Practitioner Family
DX: I48.0 Paroxysmal atrial fibrillation (principal); I10 Essential (primary) hypertension; Z79.01 Long term (current) use of anticoagulants
CPT/HCPCS: 36415; 80048; 85027

== ENCOUNTER 2020-05-24 12:06 | Emergency (ER) | payer OTHER, MEDICARE, SELFPAY ==
--- NOTE | ~2020-05-24 | XR_ITS ---
EXAMINATION: XR CHEST CLINICAL INFORMATION: Shortness of breath. Leg swelling. COMPARISON: 04/19/2020 TECHNIQUE: 2 views of the chest were obtained. FINDINGS: The lungs are well expanded. There is no focal consolidation, edema, or effusion. No pneumothorax. The cardiomediastinal silhouette is within normal limits. No acute osseous abnormality. XR/XR chest 2V IMPRESSION: No acute pulmonary finding.
--- NOTE | 2020-05-24 12:37 | ED_ITS ---
HPI - General Adult General Stated complaint: sob,leg swollen Time Seen by Provider: 05/24/20 12:37 Related Data Home Medications Medication Instructions Recorded Confirmed allopurinol 100 mg tablet 100 mg PO DAILY 03/23/20 05/01/20 Previous Rx's Medication Instructions Recorded amlodipine 10 mg tablet 10 mg PO DAILY 90 Days #90 tab 05/02/20 apixaban 5 mg tablet 5 mg PO BID 90 Days #180 tab 05/02/20 lisinopril 40 mg tablet 40 mg PO DAILY 90 Days #90 tab 05/02/20 metoprolol succinate 100 mg 100 mg PO DAILY 90 Days #90 tab 05/02/20 tablet,extended release 24 hr spironolactone 25 mg tablet 50 mg PO DAILY 90 Days #180 tab 05/02/20 Allergies Allergy/AdvReac Type Severity Reaction Status Date / Time amlodipine AdvReac Intermediate leg Verified 04/19/20 21:15 swelling Environmental Allergy Mild ITCHY EYES Uncoded 04/19/20 21:15 pollen Allergy Unknown p Uncoded 04/19/20 21:15 RAGWEED Allergy Unknown STUFFY Uncoded 04/19/20 21:15 NOSE WATERY EYES weed Allergy Unknown p Uncoded 04/19/20 21:15 PMFSH Past Medical History Medical History BPH (benign prostatic hyperplasia) Cervical radiculopathy due to degenerative joint disease of spine Chronic prostatitis GERD (gastroesophageal reflux disease) Gout History of rib fracture Hypercholesterolemia Hypertension Obesity (BMI 30-39.9) Osteoarthritis Vitamin D deficiency Social History Social History Household Members: None Housing: House Alcohol intake: current Alcohol intake frequency: a few times a week Alcohol type: beer Smoking Status: Former smoker service: No Course Course Course Narrative: 1230-This is a rapid medical exam. 74 yo male with past medical history of HTN, a-fib on eliquis, CHF, HLD, BPH, OA, GERD here with difficulty breathing since waking, increased swelling in legs. No chest pain, weight gain. On aldactone 25mg daily, has been compliant. Recent admit 04/19-04/21 for CHF exacerbation, labile blood pressure, new afib per patient. Will check EKG, CXR, labs. Deferred additional HPI, ROS and PE to primary pro vider. Discharge Plan Discharge Prescriptions: No Action allopurinol 100 mg tablet 100 mg PO DAILY RF: 0 amlodipine [Norvasc] 10 mg tablet 10 mg PO DAILY 90 Days Qty: 90 RF: 1 Eliquis 5 mg tablet 5 mg PO BID 90 Days Qty: 180 RF: 1 lisinopril 40 mg tablet 40 mg PO DAILY 90 Days Qty: 90 RF: 1 metoprolol succinate 100 mg tablet extended release 24 hr 100 mg PO DAILY 90 Days Qty: 90 RF: 1 spironolactone 25 mg tablet 50 mg PO DAILY 90 Days Qty: 180 RF: 1
[2020-05-24 12:38] VITALS: BP 154/85; PULSE 82; RESP 18; TEMP 36.7; O2SAT 99; BMI 29.9
--- NOTE | 2020-05-24 12:43 | ECG_ITS ---
Test Reason : LEG SWELLING Blood Pressure : / mmHG Vent. Rate : 058 BPM Atrial Rate : 312 BPM P-R Int : 000 ms QRS Dur : 104 ms QT Int : 402 ms P-R-T Axes : 000 -18 014 degrees QTc Int : 394 ms Atrial fibrillation with slow ventricular response Abnormal ECG When compared with ECG of 19-APR-2020 09:11, No significant change was found Referred By: Hattie Antonio Electronically Signed By:FOX PRITCHETT
[2020-05-24 13:42] LABS: MANUAL DIFF FLAG NO
[2020-05-24 13:44] LABS: Basophils Percent Auto 0.2 % (0-2); Hematocrit 41.3 % (42-52); Hemoglobin 14.3 g/dl (14.0-18.0); Imm Gran Abs Auto 0.01 X10*3/uL (0.00-0.03); Imm Gran Pct Auto 0.2 % (0.0-0.4); Lymphocytes Absolute Auto 1.1 X10*3/uL (1.2-4.9); Lymphocytes Percent Auto 26.1 % (20-40); Mean Corpuscular HGB Conc 34.6 g/dl (31.0-36.0); Mean Corpuscular Volume 89.6 fL (80-98); Mean Platelet Volume 10.6 fL (9.4-12.4); Monocytes Absolute Auto 0.4 X10*3/uL (0.1-1.2); Monocytes Percent Auto 9.1 % (2-11); Neutrophils Absolute Auto 2.6 X10*3/uL (2.0-8.3); Neutrophils Percent Auto 63.4 % (45-73); Platelet Count 169 X10*3/uL (160-400); Red Blood Count 4.61 X10*6/uL (4.60-5.80); Red Cell Distribution Width 13.4 % (11.0-16.0); White Blood Count 4.1 X10*3/uL (4.8-10.8)
[2020-05-24 14:11] LABS: Alanine Aminotransferase 29 U/L (0-40); Albumin Level 4.4 g/dL (3.5-5.0); Alkaline Phosphatase 70 U/L (39-117); Anion Gap 12 (12-20); Aspartate Amino Transferase 24 U/L (5-37); Bilirubin Direct 0.3 mg/dL (0.0-0.5); Bilirubin Total 0.6 mg/dL (0.0-1.0); Blood Urea Nitrogen 15 mg/dL (9-16); Carbon Dioxide 26 mmol/L (22-29); Chloride 106 mmol/L (96-108); Creatinine Clr Calc Pharmacy 80.5; Estimated Glomerular Filt Rate > 60; Glucose Random 102 mg/dL (60-115); Potassium 4.1 mmol/L (3.3-5.1); Sodium 140 mmol/L (135-145)
[2020-05-24 14:13] LABS: B Type Natriuretic Peptide 207 pg/mL (<100); Troponin-I High Sensitivity < 3.5 ng/L (<3.5-35.0)
[2020-05-24 20:22] VITALS: BP 161/65; PULSE 64; RESP 10; O2SAT 99
--- NOTE | 2020-05-24 20:23 | PC.NURSE ---
pt reports [place] [facility] [place] dysmpnea and edema to lower right leg. pt sent home with ?diuretic. this morning, pt began to feel slightly short of breath, and has been experiencing right lower extremity edema x 3 days.
--- NOTE | 2020-05-24 20:28 | PC.NURSE ---
pt placed on cardiac surgeon and in afib 73 bpm.
--- NOTE | 2020-05-24 20:33 | ED.SOB ---
HPI - SOB/Dyspnea General Chief Complaint: Dyspnea Stated Complaint: sob,leg swollen Time Seen by Provider: 05/24/20 12:37 Source: patient Mode of arrival: ambulatory Limitations: no limitations History of Present Illness HPI Narrative: Patient has history of AFib CHF on Eliquis and spironolactone 50 mg daily came here as he noticed for last few days legs are more swollen and today early in the morning he had some shortness of breath no chest pain no palpitation he checked his blood pressure was 150/60 and heart rate was in 70s patient denies any fever, chills no nausea no vomiting no calf tenderness MD elicited complaint: shortness of breath Pertinent past history: congestive heart failure Onset (ago): day(s) (few days) Timing: intermittent Severity: mild Exacerbating factors: exertion Relieving factors: rest Associated symptoms: denies other symptoms Treatment prior to arrival: none Related Data Home oxygen amount: none Home Medications Medication Instructions Recorded Confirmed allopurinol 100 mg tablet 100 mg PO DAILY 03/23/20 05/01/20 Previous Rx's Medication Instructions Recorded amlodipine 10 mg tablet 10 mg PO DAILY 90 Days #90 tab 05/02/20 apixaban 5 mg tablet 5 mg PO BID 90 Days #180 tab 05/02/20 lisinopril 40 mg tablet 40 mg PO DAILY 90 Days #90 tab 05/02/20 metoprolol succinate 100 mg 100 mg PO DAILY 90 Days #90 tab 05/02/20 tablet,extended release 24 hr spironolactone 25 mg tablet 50 mg PO DAILY 90 Days #180 tab 05/02/20 furosemide [Lasix] 10 mg PO QAM PRN #20 tab 05/24/20 Allergies Allergy/AdvReac Type Severity Reaction Status Date / Time amlodipine AdvReac Intermediate leg Verified 04/19/20 21:15 swelling Environmental Allergy Mild ITCHY EYES Uncoded 04/19/20 21:15 pollen Allergy Unknown p Uncoded 04/19/20 21:15 RAGWEED Allergy Unknown STUFFY Uncoded 04/19/20 21:15 NOSE WATERY EYES weed Allergy Unknown p Uncoded 04/19/20 21:15 Review of Systems Review of Systems: Constitutional : No Weight loss, No Fever, No Chills ENT/Mouth : No sore throat, No Rhinorrhea Eyes: No Eye Pain, No Swelling Cardiovascular : No Chest Pain, no palpitations Respiratory : No Cough, No Sputum, mild shortness of breath Gastrointestinal : no Nausea, No Vomiting, No Diarrhea, No abdominal Pain, no black stools Genitourinary : No Dysuria, No Urinary Frequency Musculoskeletal : No joint pain, No Myalgias, No Joint Swelling Skin : No Skin Lesions, No rash Neuro : No Weakness, No Numbness, No Dizziness, No Headache Psych : No Anxiety/Panic, No Depression Heme/Lymph: No Bruising, No Lymphadenopathy Endocrine : No Polyuria, No Polydipsia All other systems reviewed and are negative [facility] Past Medical History Medical History BPH (benign prostatic hyperplasia) Cervical radiculopathy due to degenerative joint disease of spine Chronic prostatitis GERD (gastroesophageal reflux disease) Gout History of rib fracture Hypercholesterolemia Hypertension Obesity (BMI 30-39.9) Osteoarthritis Vitamin D deficiency Social History Social History Household Members: None Housing: House Alcohol intake: current Alcohol intake frequency: a few times a week Alcohol type: beer Smoking Status: Former smoker Advance Directives: No Advance Directives Information Provided: No service: No Physical Exam Vital Signs: Vital Signs: Last Vital Signs Temp 98.1 F 05/24/20 12:38 Pulse 64 05/24/20 20:22 Resp 10 L 05/24/20 20:22 BP 161/65 H 05/24/20 20:22 Pulse Ox 99 05/24/20 20:22 Body Mass Index 29.9 Const: General: cooperative, healthy appearing, comfortable and no acute distress Nutritional Appearance: average body habitus Orientation/consciousness: patient oriented x3 Limitations: no limitations HENMT: Head: Yes normocephalic and Yes atraumatic Ears: hearing grossly normal bilaterally Mouth: Normal oral and palatal mucosa present Eyes: General: appearance normal, both eyes and all related structures Neck: Neck: Yes normal visual inspection and Yes no JVD Chest: Chest palpation & inspection: normal palpation of entire chest wall Resp: Effort & Inspection: normal respiratory effort Auscultation: clear to auscultation bilaterally, no crackles and no rales Cardio: Jugular venous distension: no JVD Rate: regular rate and bradycardic Rhythm: abnormal rhythm irregularly irregular Heart sounds: S1 normal heart sound present and S2 normal heart sound present GI: Inspection: Yes normal to inspection Palpation (GI): Soft to palpation and nontender Back/Spine/Pelvis: Thoracic/Lumbar Spine: thoracic and lumbar spine normal to inspection Skin: General skin exam: no rashes or lesions noted Neuro: General: patient oriented x3, gait normal, moves all extremities and no focal motor deficits Extrem: General: Yes full ROM, Yes no calf tenderness and Yes pedal edema (2+) Course Course Course Narrative: Patient with chronic CHF already on spironolactone 50 mg daily came with increased leg swelling and slight shortness of breath in the morning workup showed BNP of 207 which is less than when he had last time in 04/19 when it was 352 chest x-ray negative patient is saturating 98% at room air EKG without any acute changes will discharge patient home to continue spironolactone 50 mg daily and add Lasix 10 mg daily in the morning 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 Lab Data Attestation: I reviewed the patient's lab results. Result diagrams: 05/24/20 13:33 05/24/20 13:33 Labs: Lab Results 05/24/20 05/24/20 05/24/20 Range/Units 13:33 13:33 13:33 WBC 4.1 L (4.8-10.8) X10*3/uL RBC 4.61 (4.60-5.80) X10*6/uL Hgb 14.3 (14.0-18.0) g/dl Hct 41.3 L (42-52) % MCV 89.6 (80-98) fL MCH 31.0 (27.0-33.0) pg MCHC 34.6 (31.0-36.0) g/dl RDW 13.4 (11.0-16.0) % Plt Count 169 D (160-400) X10*3/uL MPV 10.6 (9.4-12.4) fL Immature Gran % (Auto) 0.2 (0.0-0.4) % Neut % (Auto) 63.4 (45-73) % Lymph % (Auto) 26.1 (20-40) % [place] % (Auto) 9.1 (2-11) % Eos % (Auto) 1.0 (0-4) % Baso % (Auto) 0.2 (0-2) % Lymph # (Auto) 1.1 L (1.2-4.9) X10*3/uL [place] # (Auto) 0.4 (0.1-1.2) X10*3/uL Eos # (Auto) 0.0 (0.0-0.4) X10*3/uL Baso # (Auto) 0.0 (0.0-0.2) X10*3/uL Abs Immat Gran (auto) 0.01 (0.00-0.03) X10*3/uL Absolute Neuts (auto) 2.6 (2.0-8.3) X10*3/uL Absolute Nucleated RBC 0.000 (0.0-0.012) X10*3/uL Nucleated RBC % (auto) 0.0 (0.0-0.2) /100WBC Sodium 140 (135-145) mmol/L Potassium 4.1 (3.3-5.1) mmol/L Chloride 106 (96-108) mmol/L Carbon Dioxide 26 (22-29) mmol/L Anion Gap 12 (12-20) BUN 15 (9-16) mg/dL Creatinine 0.82 (0.5-1.4) mg/dL Estim Creat Clear Calc 80.5 Estimated GFR > 60 Random Glucose 102 (60-115) mg/dL Calcium 9.0 (8.4-10.2) mg/dL Total Bilirubin 0.6 (0.0-1.0) mg/dL Direct Bilirubin 0.3 (0.0-0.5) mg/dL AST 24 (5-37) U/L ALT 29 (0-40) U/L Alkaline Phosphatase 70 (39-117) U/L Troponin I High Sens < 3.5 (<3.5-35.0) ng/L B-Natriuretic Peptide 207 H (<100) pg/mL Total Protein 7.0 (6.5-8.0) g/dL Albumin 4.4 (3.5-5.0) g/dL ECG Data Attestation: I personally reviewed and interpreted this ECG as follows: Interpretation: Atrial fibrillation with ventricular rate of [address] T wave changes normal axis impression no acute ischemia atrial fibrillation Discharge Plan Discharge Clinical Impression: Congestive heart failure Qualifiers: Heart failure type: combined systolic and diastolic Heart failure chronicity: chronic Qualified Code(s): I50.42 - Chronic combined systolic (congestive) and diastolic (congestive) heart failure Patient Disposition: Home, Self-Care Instructions: Left-sided and Right-sided Heart Failure (ED) Additional Instructions: Continue water pill daily as prescribed keep the legs elevated. 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
== END 2020-05-24 21:07 | disposition home or self-care (01) ==
PROVIDERS: Nurse Practitioner Family; Emergency Provider Internal Medicine; PCP Internal Medicine
DX: I50.42 Chronic combined systolic (congestive) and diastolic (congestive) heart failure (principal); R06.00 Dyspnea, unspecified; I48.91 Unspecified atrial fibrillation; Z79.01 Long term (current) use of anticoagulants; Z87.891 Personal history of nicotine dependence; Z79.899 Other long term (current) drug therapy
CPT/HCPCS: 36415; 71046; 80048; 80076; 83880; 84484; 85025; 93005; 99283

== ENCOUNTER → 2020-05-30 09:36 | Outpatient (BNVA) | payer OTHER, MEDICARE, SELFPAY | PROVIDERS: PCP Internal Medicine; Visit Provider Nurse Practitioner Family ==

== ENCOUNTER → 2020-06-12 08:55 | Outpatient (REF) | payer OTHER, MEDICARE, SELFPAY ==
--- NOTE | 2020-06-12 15:20 | ECG_ITS ---
Hook-up date: 2020-06-12 10:07:00 Duration: 28:34:00 Test Indications: PAF Medications: 43311 QRS complexes 89 Ventricular ectopics which represent <1 % of total QRS comp. * Supraventricular ectopics which represent % of total QRS comp. * Paced QRS complexs which represent % of total QRS comp. VENTRICULAR ECTOPY 87 Isolated 0 Bigeminal Cycles 1 Couplets 0 Runs 0 Beats in Runs * Beats LONGEST at * BPM at :: -- * Beats FASTEST at * BPM at :: -- SUPRAVENTRICULAR ECTOPY * Isolated * Couplets * Runs * Beats in Runs * Beats LONGEST at * BPM at :: -- * Beats FASTEST at * BPM at :: -- HEART RATES 40 MIN at 02:15:25 2020-06-13 68 AVG 113 MAX at 11:19:00 2020-06-13 LONGEST RR 2.4000 secs at 04:52:30 2020-06-13 S-T LEVELS Channel 1 - 128 mm at 10:07:00 2020-06-12 - 128 mm at 10:07:00 2020-06-12 Channel 2 - 128 mm at 10:07:00 2020-06-12 - 128 mm at 10:07:00 2020-06-12 Channel 3 - 128 mm at 02:92:61 -- - 128 mm at 02:92:61 Basic rhythm Atrial fibrillation No long pause or profound bradycardia Heart rate is well controlled. Rare Premature ventricular complexes No diary submitted Referred By: Oriana Mathew Overread By: DARIN ROBLES MD
== END ==
LOC: HO.CARD 08:55
PROVIDERS: Visit Provider Nurse Practitioner Family
DX: I48.0 Paroxysmal atrial fibrillation (principal)
CPT/HCPCS: 93226

== ENCOUNTER 2020-06-21 08:27 | Outpatient (REF) | payer OTHER, MEDICARE, SELFPAY ==
[2020-06-21 10:25] LABS: MANUAL DIFF FLAG NO
[2020-06-21 10:35] LABS: Basophils Percent Auto 0.2 % (0-2); Eosinophils Absolute Auto 0.1 X10*3/uL (0.0-0.4); Eosinophils Percent Auto 1.7 % (0-4); Hematocrit 40.1 % (42-52); Hemoglobin 13.5 g/dl (14.0-18.0); Imm Gran Abs Auto 0.01 X10*3/uL (0.00-0.03); Imm Gran Pct Auto 0.2 % (0.0-0.4); Lymphocytes Absolute Auto 1.5 X10*3/uL (1.2-4.9); Lymphocytes Percent Auto 36.9 % (20-40); Mean Corpuscular HGB Conc 33.7 g/dl (31.0-36.0); Mean Corpuscular Volume 92.2 fL (80-98); Mean Platelet Volume 11.4 fL (9.4-12.4); Monocytes Absolute Auto 0.4 X10*3/uL (0.1-1.2); Monocytes Percent Auto 10.1 % (2-11); Neutrophils Absolute Auto 2.1 X10*3/uL (2.0-8.3); Neutrophils Percent Auto 50.9 % (45-73); Platelet Count 174 X10*3/uL (160-400); Red Blood Count 4.35 X10*6/uL (4.60-5.80); Red Cell Distribution Width 13.6 % (11.0-16.0); White Blood Count 4.1 X10*3/uL (4.8-10.8)
[2020-06-21 11:12] LABS: B Type Natriuretic Peptide 164 pg/mL (<100)
[2020-06-21 11:19] LABS: Alanine Aminotransferase 26 U/L (0-40); Albumin Level 4.3 g/dL (3.5-5.0); Alkaline Phosphatase 73 U/L (39-117); Anion Gap 11 (12-20); Aspartate Amino Transferase 22 U/L (5-37); Bilirubin Total 0.7 mg/dL (0.0-1.0); Blood Urea Nitrogen 21 mg/dL (9-16); Calcium 8.8 mg/dL (8.4-10.2); Carbon Dioxide 26 mmol/L (22-29); Chloride 109 mmol/L (96-108); Cholesterol 157 mg/dL; Estimated Glomerular Filt Rate > 60; Glucose Random 92 mg/dL (60-115); HDL Cholesterol 39 mg/dL; LDL Cholesterol Calculated 93 mg/dl; Potassium 3.9 mmol/L (3.3-5.1); Sodium 142 mmol/L (135-145); Total Protein 6.9 g/dL (6.5-8.0); Triglycerides 127 mg/dL
[2020-06-21 11:27] LABS: Free T4 (Free Thyroxine) 0.95 ng/dL (0.71-1.85); Thyroid Stimulating Hormone 1.05 uIU/mL (0.32-4.0)
[2020-06-21 11:29] LABS: PSA,Total (Free>4and<10) 2.28 ng/mL (0.00-4.00)
[2020-06-21 12:04] LABS: Folate 19.7 ng/mL (> or = 4.0); Vitamin B12 221 pg/mL (200-900)
== END 2020-06-21 08:28 | disposition home or self-care (01) ==
LOC: HO.10HDL 08:27
PROVIDERS: Absent Provider Urology; Visit Provider Internal Medicine
DX: Z12.5 Encounter for screening for malignant neoplasm of prostate (principal); R97.20 Elevated prostate specific antigen [PSA]; I10 Essential (primary) hypertension; I48.0 Paroxysmal atrial fibrillation; E78.00 Pure hypercholesterolemia, unspecified
CPT/HCPCS: 36415; 80053; 80061; 82607; 82746; 83880; 84153; 84439; 84443; 85025

== ENCOUNTER → 2020-07-05 09:30 | Outpatient (BNVA) | payer OTHER, MEDICARE, SELFPAY | PROVIDERS: Visit Provider Urology ==

== ENCOUNTER → 2020-08-07 09:33 | Outpatient (BNVA) | payer OTHER, MEDICARE, SELFPAY | PROVIDERS: PCP Internal Medicine; Visit Provider Internal Medicine ==

== ENCOUNTER 2020-10-12 07:44 | Outpatient (REF) | payer OTHER, MEDICARE, SELFPAY ==
[2020-10-12 08:15] LABS: MANUAL DIFF FLAG NO
[2020-10-12 08:18] LABS: Basophils Percent Auto 0.1 % (0-2); Eosinophils Absolute Auto 0.1 X10*3/uL (0.0-0.4); Eosinophils Percent Auto 1.1 % (0-4); Hematocrit 43.5 % (42-52); Hemoglobin 14.6 g/dl (14.0-18.0); Imm Gran Abs Auto 0.01 X10*3/uL (0.00-0.03); Imm Gran Pct Auto 0.1 % (0.0-0.4); Lymphocytes Absolute Auto 1.7 X10*3/uL (1.2-4.9); Lymphocytes Percent Auto 23.1 % (20-40); Mean Corpuscular HGB Conc 33.6 g/dl (31.0-36.0); Mean Corpuscular Hemoglobin 31.5 pg (27.0-33.0); Mean Platelet Volume 10.7 fL (9.4-12.4); Monocytes Absolute Auto 0.6 X10*3/uL (0.1-1.2); Monocytes Percent Auto 7.8 % (2-11); Neutrophils Percent Auto 67.8 % (45-73); Platelet Count 182 X10*3/uL (160-400); Red Blood Count 4.63 X10*6/uL (4.60-5.80); Red Cell Distribution Width 13.1 % (11.0-16.0); Retic HGB Equivalent 37.9 pg (30.0-35.0); Reticulocyte Percent 1.6 % (0.5-1.8); Reticulocytes Absolute 0.075 X10*6/uL (0.026-0.095); White Blood Count 7.3 X10*3/uL (4.8-10.8)
[2020-10-12 08:51] LABS: Carbon Dioxide 27 mmol/L (22-29); Chloride 107 mmol/L (96-108); Potassium 4.2 mmol/L (3.3-5.1); Sodium 142 mmol/L (135-145)
[2020-10-12 08:52] LABS: Alanine Aminotransferase 22 U/L (0-40); Albumin Level 4.2 g/dL (3.5-5.0); Alkaline Phosphatase 80 U/L (39-117); Anion Gap 12 (12-20); Aspartate Amino Transferase 20 U/L (5-37); Bilirubin Total 0.6 mg/dL (0.0-1.0); Blood Urea Nitrogen 22 mg/dL (9-16); Calcium 9.1 mg/dL (8.4-10.2); Estimated Glomerular Filt Rate > 60; Glucose Random 109 mg/dL (60-115); Iron 68 mcg/dL (45-160); Percent Iron Saturation 21 % (15-50); Total Iron Binding Capacity 325 mcg/dL (228-428); Unsaturated Iron Binding 257 ug/dL
[2020-10-12 09:12] LABS: Ferritin 331 ng/mL (20-250)
[2020-10-12 09:35] LABS: Folate 13.4 ng/mL (> or = 4.0); Vitamin B12 200 pg/mL (200-900)
== END 2020-10-12 07:45 | disposition home or self-care (01) ==
LOC: HO.LAB 07:44
PROVIDERS: PCP Internal Medicine; Visit Provider Internal Medicine
DX: I48.19 Other persistent atrial fibrillation (principal)
CPT/HCPCS: 36415; 80053; 82607; 82728; 82746; 83540; 85025; 85045; 86900; 86901

== ENCOUNTER 2020-10-31 12:11 | Day surgery (SDC) | payer OTHER, MEDICARE, SELFPAY ==
--- NOTE | 2020-10-30 08:57 | HO.ANESPROP2 ---
Documented by User: Helena Rahman 10/30/20 08:59 HPI - Anesthesia Eval Consult details Narrative: 74yo M for Colonoscopy Eliquis for afib PMFSH Active Problems Active Problems: All Active Problems (Updated 10/17/20 @ 09:53 by Demetri Salazar MD) Impaired glucose tolerance (Acute) Testicle swelling (Acute) Anemia (Acute) Vitamin B12 deficiency (Acute) Pulmonary hypertension (Acute) Essential hypertension (Acute) Persistent atrial fibrillation (Acute) Elevated PSA (Acute) Leg edema (Acute) Chronic anticoagulation (Acute) Obesity (BMI 30-39.9) (Acute) BPH (benign prostatic hyperplasia) (Acute) Osteoarthritis (Acute) GERD (gastroesophageal reflux disease) (Acute) Vitamin D deficiency (Acute) Hypercholesterolemia (Acute) Past Medical History Medical History BPH (benign prostatic hyperplasia) Cervical radiculopathy due to degenerative joint disease of spine Chronic prostatitis GERD (gastroesophageal reflux disease) Gout History of rib fracture Hypercholesterolemia Obesity (BMI 30-39.9) Osteoarthritis Persistent atrial fibrillation Pulmonary hypertension Vitamin D deficiency Family History Family History Father CVD (cardiovascular disease) Mother CVD (cardiovascular disease) Diabetes Sister No problems noted. Son No problems noted. Daughter No problems noted. Surgical History Surgical History History of inguinal hernia repair History of prostate biopsy Social History Social History Household Members: None Housing: Apartment Do you presently have visiting nurse or other home services: No Alcohol intake: current Alcohol intake frequency: a few times a week Alcohol type: beer Patient Tobacco Use Status: Never used Tobacco e-Cigarette/Vaping Use: Never Used Second Hand Smoke Exposure: No Use of substances other than those prescribed or required for medical reasons: No Are you DNR?: No Advance Directives: No Advance Directives Information Provided: Yes service: No Current occupational status: employed Meds Allergies Allergy/AdvReac Type Severity Reaction Status Date / Time amlodipine AdvReac Intermediate leg Verified 10/31/20 12:48 swelling Environmental Allergy Mild ITCHY EYES Uncoded 08/07/20 09:46 pollen Allergy Mild Itchy Eyes Uncoded 10/31/20 12:48 RAGWEED Allergy Mild STUFFY Uncoded 10/31/20 12:48 NOSE WATERY EYES weed Allergy Mild Itchy Eyes Uncoded 10/31/20 12:48 Home Medications Medication Instructions Recorded Confirmed Last Taken Type allopurinol 100 mg tablet 100 mg PO DAILY 03/23/20 10/17/20 Unknown History Exam Exam Date and Time: October 30, 2020 0857 Pertinent Lab Results Pertinent Lab Results: Laboratory Tests 10/12/20 10/12/20 08:00 08:00 WBC 7.3 Hgb 14.6 Hct 43.5 Plt Count 182 Sodium 142 Potassium 4.2 Chloride 107 Carbon Dioxide 27 BUN 22 H Creatinine 0.97 Narrative Narrative: Echo 04/2020 Conclusions: - The left ventricular systolic function is normal. The visually estimated ejection fraction is between 55-60%. - The left atrium is severely dilated. - There is mild calcification of the aortic valve. - There is mild to moderate mitral valve regurgitation. - Mild pulmonary hypertension is present. EKG 05/2020 Vent. Rate : 058 BPM Atrial Rate : 312 BPM P-R Int : 000 ms QRS Dur : 104 ms QT Int : 402 ms P-R-T Axes : 000 -18 014 degrees QTc Int : 394 ms Atrial fibrillation with slow ventricular response Abnormal ECG When compared with ECG of 19-APR-2020 09:11, No significant change was found HOLTER 05/2020 Basic rhythm Atrial fibrillation No long pause or profound bradycardia Heart rate is well controlled. Rare Premature ventricular complexes No diary submitted Assessment and Plan Assessment Anesthesia Assessment: Chart Reviewed Documented by User: Salma Nicole 10/31/20 13:21 [facility] Past Medical History Medical History BPH (benign prostatic hyperplasia) Cervical radiculopathy due to degenerative joint disease of spine Chronic prostatitis GERD (gastroesophageal reflux disease) Gout History of rib fracture Hypercholesterolemia Obesity (BMI 30-39.9) Osteoarthritis Persistent atrial fibrillation Pulmonary hypertension Vitamin D deficiency Family History Family History Father CVD (cardiovascular disease) Mother CVD (cardiovascular disease) Diabetes Sister No problems noted. Son No problems noted. Daughter No problems noted. Surgical History Surgical History History of inguinal hernia repair History of prostate biopsy Social History Social History Household Members: None Housing: Apartment Do you presently have visiting nurse or other home services: No Alcohol intake: current Alcohol intake frequency: a few times a week Alcohol type: beer Patient Tobacco Use Status: Never used Tobacco e-Cigarette/Vaping Use: Never Used Second Hand Smoke Exposure: No Use of substances other than those prescribed or required for medical reasons: No Are you DNR?: No Advance Directives: No Advance Directives Information Provided: Yes service: No Current occupational status: employed Meds Allergies Allergy/AdvReac Type Severity Reaction Status Date / Time amlodipine AdvReac Intermediate leg Verified 10/31/20 12:48 swelling Environmental Allergy Mild ITCHY EYES Uncoded 08/07/20 09:46 pollen Allergy Mild Itchy Eyes Uncoded 10/31/20 12:48 RAGWEED Allergy Mild STUFFY Uncoded 10/31/20 12:48 NOSE WATERY EYES weed Allergy Mild Itchy Eyes Uncoded 10/31/20 12:48 Home Medications Medication Instructions Recorded Confirmed Last Taken Type allopurinol 100 mg tablet 100 mg PO DAILY 03/23/20 10/17/20 Unknown History Exam Airway Mallampati Class: II TM Dist: >3cm Neck ROM: Full Partial: Upper and Lower Loose/Missing/Broken Teeth: Yes, Upper and Lower Heart: irreg Lungs: CTA Assessment and Plan Assessment Anesthesia Assessment: Anesthesia Plan Discussed and Chart Reviewed Final Anesthetic Review NPO: Yes ASA Class: III Final Preanesthetic Review: Meds/Allgs Chart Reviewed, Consent Obtained/Reviewed and Anes Risks/Benef Reviewed Patient Risk: Intermediate Procedure Risk: Low Anesthetic Plan Anesthetic Plan: MAC: Disposition: Standard PACU
[2020-10-31 13:00] VITALS: BP 156/70; PULSE 77; RESP 18; TEMP 36.1; O2SAT 98
[2020-10-31] MEDS: Lactated Ringers 1,000 ML 100 ML IVCONT (13:08)
--- NOTE | 2020-10-31 13:42 | MHC.SHP ---
Pre-Procedural Eval Section A Date of Service: 10/31/20 The patient is an INPATIENT: No Changes since office visit: No Cold of Flu in the past 2 weeks, No New Medical Problems, No Changes in Medication and No Patient answered all questions The History & Physical has been completed within 30 days and I have reviewed it.: Yes Section B Chief Complaint: screening Allergies: Allergies Allergy/AdvReac Type Severity Reaction Status Date / Time amlodipine AdvReac Intermediate leg Verified 10/31/20 12:48 swelling Environmental Allergy Mild ITCHY EYES Uncoded 08/07/20 09:46 pollen Allergy Mild Itchy Eyes Uncoded 10/31/20 12:48 RAGWEED Allergy Mild STUFFY Uncoded 10/31/20 12:48 NOSE WATERY EYES weed Allergy Mild Itchy Eyes Uncoded 10/31/20 12:48 Plan I have reviewed the history and physical and performed a pertinent physical examination on my patient. No changes have occurred unless specified.
--- NOTE | 2020-10-31 14:08 | P.BOP_ITS ---
Brief Operative Note Date of Service: 10/31/20 Pre-op diagnosis: screening Post-op diagnosis: same (colon polyps) Procedure: colonoscopy Surgeon: Cesar Delarosa Anesthesia: MAC Was an Photographic Editor used for this Procedure?: No Estimated blood loss (mL): 5 Pathology: other (polyps x2) Condition: stable Disposition: PACU
[2020-10-31 14:10] VITALS: BP 107/53; PULSE 68; RESP 14; TEMP 36.6; O2SAT 94
[2020-10-31 14:25] VITALS: BP 118/74; PULSE 63; RESP 16; O2SAT 97
--- NOTE | 2020-10-31 18:28 | OP_ITS ---
SURGEON: Cesar Delarosa MD INDICATIONS: Colon cancer screening. PREOPERATIVE DIAGNOSIS: POSTOPERATIVE DIAGNOSIS: PROCEDURE PERFORMED: Colonoscopy to the terminal ileum with biopsy. ESTIMATED BLOOD LOSS: COMPLICATIONS: ANESTHESIA: ASSISTANTS: SPECIMENS: MEDICATIONS: Monitored anesthesia care. DESCRIPTION OF PROCEDURE: History and physical performed. The risks and benefits of the procedure were explained to the patient. Informed consent was obtained. The patient was placed in left lateral decubitus position. A digital rectal exam was performed and was found to be normal. The Olympus pediatric video colonoscope was introduced into the rectum and advanced to the cecum without difficulty. The cecum was identified by transillumination, palpation, and identification of ileocecal valve. Examination was performed and the scope was removed. He tolerated the procedure well and was taken to recovery area in stable condition. FINDINGS: The terminal ileum was examined and appeared normal. The visualized colonic mucosa was normal. Two less than 5 mm polyps were removed with biopsy forceps. These were located at the ileocecal valve and 65 cm. No other polyps were seen. The quality of the prep was good. Retroflexed examination showed moderate-sized internal hemorrhoids. IMPRESSION: Colon polyps. RECOMMENDATION: Follow up the biopsy results. MD TAYLOR Nuno/MITCH / [id number]
== END 2020-10-31 15:10 | disposition home or self-care (01) ==
PROVIDERS: PCP Internal Medicine; Visit Provider Internal Medicine Gastroenterology
PROC: 0DJD8ZZ Inspection of Lower Intestinal Tract, Via Natural or Artificial Opening Endoscopic (ICD-10-PCS; CPT 45378; principal; 2020-10-31 13:40)
DX: Z12.11 Encounter for screening for malignant neoplasm of colon (principal); D12.0 Benign neoplasm of cecum; K63.5 Polyp of colon; K64.8 Other hemorrhoids; K21.9 Gastro-esophageal reflux disease without esophagitis; M10.9 Gout, unspecified; I48.19 Other persistent atrial fibrillation; Z79.01 Long term (current) use of anticoagulants; I11.0 Hypertensive heart disease with heart failure; I50.9 Heart failure, unspecified; N40.0 Benign prostatic hyperplasia without lower urinary tract symptoms; E55.9 Vitamin D deficiency, unspecified; Z79.899 Other long term (current) drug therapy; Z88.8 Allergy status to other drugs, medicaments and biological substances
CPT/HCPCS: 45380; 88305

== ENCOUNTER 2020-11-01 08:40 | Outpatient (REF) | payer OTHER, MEDICARE, SELFPAY ==
--- NOTE | ~2020-11-01 | US_ITS ---
EXAMINATION: US SCROTUM CLINICAL INFORMATION: Testicular swelling. COMPARISON: None TECHNIQUE: A sonogram of the scrotum was performed assessing conde-scale appearance and color Doppler flow. Spectral Doppler analysis of the arterial and venous flow were performed in the testes bilaterally. FINDINGS: RIGHT: Right testicle measures 4.6 x 2.8 x 2.9 cm, volume 19.5 mL. No focal testicular parenchymal lesions are visualized. Spectral Doppler analysis of the arterial and venous flow is mildly increased in the right testis. Right epididymal head is normal in size. No right varicocele is seen. Large right-sided hydrocele with volume of approximate 72 mL. Right epididymal Doppler flow is normal. LEFT: Left testicle measures 4.0 x 2.6 x 2.7 cm, volume 14.7 mL. No focal testicular parenchymal lesions are visualized. Spectral Doppler analysis of the arterial and venous flow is mildly increased in the left testis. Left epididymal head is normal in size. Large left-sided hydrocele with volume of approximately 90 mm. Mild left-sided varicocele. Left epididymal Doppler flow is normal. US/US scrotum IMPRESSION: 1. Mildly increased vascular flow within the testicles, which could represent a minimal infectious or inflammatory process. Homogeneous parenchyma without parenchymal lesion. 2. Large bilateral hydroceles. 3. Mild left-sided varicocele.
== END 2020-11-01 08:41 | disposition home or self-care (01) ==
LOC: HO.HMGCX 08:40
PROVIDERS: PCP Internal Medicine; Visit Provider Internal Medicine
DX: N50.89 Other specified disorders of the male genital organs (principal)
CPT/HCPCS: 76870

== ENCOUNTER 2021-01-01 07:47 | Outpatient (REF) | payer OTHER, MEDICARE, SELFPAY ==
[2021-01-01 11:43] LABS: Prostate Specific Antigen 5.41 ng/mL (<0.05-4.0)
== END 2021-01-01 07:48 | disposition home or self-care (01) ==
LOC: HO.10HDL 07:47
PROVIDERS: Visit Provider Urology
DX: Z12.5 Encounter for screening for malignant neoplasm of prostate (principal); N13.8 Other obstructive and reflux uropathy; N40.1 Benign prostatic hyperplasia with lower urinary tract symptoms; R97.20 Elevated prostate specific antigen [PSA]
CPT/HCPCS: 36415; 84153

== ENCOUNTER → 2021-01-08 09:30 | Outpatient (BNVA) | payer OTHER, MEDICARE, SELFPAY | PROVIDERS: PCP Internal Medicine; Visit Provider Urology ==

== ENCOUNTER → 2021-02-08 10:24 | Outpatient (BNVA) | payer OTHER, MEDICARE, SELFPAY | PROVIDERS: Visit Provider Urology ==

== ENCOUNTER → 2021-02-13 07:54 | Outpatient (BNVA) | payer OTHER, MEDICARE, SELFPAY | PROVIDERS: PCP Internal Medicine; Referring Provider Internal Medicine; Visit Provider Internal Medicine ==

== ENCOUNTER 2021-04-23 08:42 | Outpatient (REF) | payer OTHER, MEDICARE, SELFPAY ==
[2021-04-23 11:35] LABS: Basophils Percent Auto 0.2 % (0-2); Eosinophils Absolute Auto 0.1 X10*3/uL (0.0-0.4); Eosinophils Percent Auto 1.5 % (0-4); Hematocrit 44.6 % (42.0-52.0); Imm Gran Abs Auto 0.01 X10*3/uL (0.00-0.03); Imm Gran Pct Auto 0.2 % (0.0-0.4); Immature Retic Fraction 11.3 % (2.3-13.4); Lymphocytes Percent Auto 42.3 % (20-40); MANUAL DIFF FLAG NO; Mean Corpuscular HGB Conc 33.6 g/dl (31.0-36.0); Mean Corpuscular Hemoglobin 33.4 pg (27.0-33.0); Mean Corpuscular Volume 99.3 fL (80.0-98.0); Mean Platelet Volume 10.9 fL (9.4-12.4); Monocytes Absolute Auto 0.6 X10*3/uL (0.1-1.2); Monocytes Percent Auto 11.9 % (2-11); Neutrophils Absolute Auto 2.1 x10*3/uL (2.0-8.3); Neutrophils Percent Auto 43.9 % (45-73); Platelet Count 180 X10*3/uL (160-400); Red Blood Count 4.49 X10*6/uL (4.60-5.80); Red Cell Distribution Width 13.3 % (11.0-16.0); Retic HGB Equivalent 38.6 pg (30.0-35.0); Reticulocyte Percent 1.9 % (0.5-1.8); Reticulocytes Absolute 0.087 X10*6/uL (0.026-0.095); White Blood Count 4.7 X10*3/uL (4.8-10.8)
[2021-04-23 11:51] LABS: Estimated Average Glucose 108 mg/dL; Hemoglobin A1c % 5.4 %
[2021-04-23 12:08] LABS: Alanine Aminotransferase 21 U/L (0-40); Albumin Level 4.2 g/dL (3.5-5.0); Alkaline Phosphatase 54 U/L (39-117); Anion Gap 11 (12-20); Aspartate Amino Transferase 19 U/L (5-37); Bilirubin Total 0.4 mg/dL (0.0-1.0); Blood Urea Nitrogen 22 mg/dL (9-16); Carbon Dioxide 29 mmol/L (22-29); Chloride 105 mmol/L (96-108); Cholesterol 182 mg/dL; Estimated Glomerular Filt Rate > 60; Glucose Random 101 mg/dL (60-115); HDL Cholesterol 43 mg/dL; Iron 76 mcg/dL (45-160); LDL Cholesterol Calculated 98 mg/dl; Percent Iron Saturation 22 % (15-50); Potassium 3.8 mmol/L (3.3-5.1); Sodium 141 mmol/L (135-145); Total Iron Binding Capacity 348 mcg/dL (228-428); Triglycerides 209 mg/dL; Unsaturated Iron Binding 272 ug/dL
[2021-04-23 12:34] LABS: Ferritin 443 ng/mL (20-250); Free T4 (Free Thyroxine) 0.88 ng/dL (0.71-1.85); Thyroid Stimulating Hormone 1.19 uIU/mL (0.32-4.0)
[2021-04-23 12:39] LABS: Folate 18.7 ng/mL (> or = 4.0); Vitamin B12 260 pg/mL (200-900)
== END 2021-04-23 08:43 | disposition home or self-care (01) ==
LOC: HO.HMGCLDS 08:42
PROVIDERS: PCP Internal Medicine; Visit Provider Internal Medicine
DX: D64.9 Anemia, unspecified (principal); E78.00 Pure hypercholesterolemia, unspecified; I48.19 Other persistent atrial fibrillation; R73.02 Impaired glucose tolerance (oral)
CPT/HCPCS: 36415; 80053; 80061; 82607; 82728; 82746; 83036; 83540; 84439; 84443; 85025; 85045

== ENCOUNTER 2021-08-02 07:09 | Outpatient (REF) | payer OTHER, MEDICARE, SELFPAY | END 2021-08-02 07:10 | disposition home or self-care (01) | LOC: HO.HMGCLDS 07:09 | PROVIDERS: PCP Internal Medicine; Visit Provider Urology | DX: Z12.5 Encounter for screening for malignant neoplasm of prostate (principal); N40.1 Benign prostatic hyperplasia with lower urinary tract symptoms; R97.20 Elevated prostate specific antigen [PSA]; N13.8 Other obstructive and reflux uropathy | CPT/HCPCS: 36415; 84153 ==

== ENCOUNTER → 2021-08-09 09:59 | Outpatient (BNVA) | payer OTHER, MEDICARE, SELFPAY | PROVIDERS: Visit Provider Urology | DX: Z13.89 Encounter for screening for other disorder (principal) ==

== ENCOUNTER → 2022-02-03 07:58 | Outpatient (BNVA) | payer OTHER, MEDICARE, SELFPAY | PROVIDERS: PCP Internal Medicine; Referring Provider Internal Medicine; Visit Provider Internal Medicine | DX: I48.19 Other persistent atrial fibrillation (principal); I10 Essential (primary) hypertension; I34.0 Nonrheumatic mitral (valve) insufficiency; I27.20 Pulmonary hypertension, unspecified; R60.0 Localized edema | CPT/HCPCS: 93005; 99212 ==

== ENCOUNTER 2022-02-05 08:39 | Outpatient (REF) | payer OTHER, MEDICARE, SELFPAY ==
[2022-02-05 12:12] LABS: Prostate Specific Antigen 1.14 ng/mL (<0.05-4.0)
== END 2022-02-05 08:40 | disposition home or self-care (01) ==
LOC: HO.HMGCLDS 08:39
PROVIDERS: PCP Internal Medicine; Visit Provider Urology
DX: Z12.5 Encounter for screening for malignant neoplasm of prostate (principal); N13.8 Other obstructive and reflux uropathy; N40.1 Benign prostatic hyperplasia with lower urinary tract symptoms; R97.20 Elevated prostate specific antigen [PSA]
CPT/HCPCS: 36415; 84153

== ENCOUNTER → 2022-02-14 10:00 | Outpatient (BNVA) | payer OTHER, MEDICARE, SELFPAY | PROVIDERS: PCP Internal Medicine; Visit Provider Urology | DX: N40.1 Benign prostatic hyperplasia with lower urinary tract symptoms (principal); R35.0 Frequency of micturition; R97.20 Elevated prostate specific antigen [PSA] | CPT/HCPCS: 51798; 99212 ==

== ENCOUNTER 2022-04-18 07:02 | Outpatient (REF) | payer OTHER, MEDICARE, SELFPAY ==
[2022-04-18 08:05] LABS: MANUAL DIFF FLAG NO
[2022-04-18 08:07] LABS: Basophils Percent Auto 0.2 % (0-2); Eosinophils Absolute Auto 0.1 X10*3/uL (0.0-0.4); Eosinophils Percent Auto 1.5 % (0-4); Hematocrit 41.1 % (42.0-52.0); Imm Gran Abs Auto 0.01 X10*3/uL (0.00-0.03); Imm Gran Pct Auto 0.2 % (0.0-0.4); Lymphocytes Absolute Auto 1.9 X10*3/uL (1.2-4.9); Lymphocytes Percent Auto 40.2 % (20-40); Mean Corpuscular HGB Conc 34.1 g/dl (31.0-36.0); Mean Corpuscular Hemoglobin 33.1 pg (27.0-33.0); Mean Corpuscular Volume 97.2 fL (80.0-98.0); Mean Platelet Volume 10.4 fL (9.4-12.4); Monocytes Absolute Auto 0.5 X10*3/uL (0.1-1.2); Monocytes Percent Auto 10.4 % (2-11); Neutrophils Absolute Auto 2.2 x10*3/uL (2.0-8.3); Neutrophils Percent Auto 47.5 % (45-73); Platelet Count 188 X10*3/uL (160-400); Red Blood Count 4.23 X10*6/uL (4.60-5.80); Red Cell Distribution Width 13.2 % (11.0-16.0); White Blood Count 4.6 X10*3/uL (4.8-10.8)
[2022-04-18 08:23] LABS: Alanine Aminotransferase 14 U/L (0-40); Albumin Level 4.3 g/dL (3.5-5.0); Alkaline Phosphatase 51 U/L (39-117); Anion Gap 10 (12-20); Aspartate Amino Transferase 17 U/L (5-37); Bilirubin Total 0.9 mg/dL (0.0-1.0); Blood Urea Nitrogen 19 mg/dL (9-16); Carbon Dioxide 29 mmol/L (22-29); Chloride 106 mmol/L (96-108); Cholesterol 176 mg/dL; Estimated Glomerular Filt Rate > 60; Glucose Fasting 96 mg/dL (60-99); HDL Cholesterol 44 mg/dL; LDL Cholesterol Calculated 110 mg/dl; Potassium 3.7 mmol/L (3.3-5.1); Sodium 141 mmol/L (135-145); Total Protein 6.9 g/dL (6.5-8.0); Triglycerides 110 mg/dL
[2022-04-18 08:28] LABS: B Type Natriuretic Peptide 184 pg/mL (<100)
[2022-04-18 09:28] LABS: Thyroid Stimulating Hormone 1.43 uIU/mL (0.32-4.0)
[2022-04-18 15:03] LABS: Folate 16.9 ng/mL (> or = 4.0); Vitamin B12 409 pg/mL (200-900)
[2022-04-18 15:39] LABS: Prostate Specific Antigen Scr 1.32 ng/mL (<0.05-4.0)
== END 2022-04-18 07:03 | disposition home or self-care (01) ==
LOC: HO.HMGCLDS 07:02
PROVIDERS: PCP Internal Medicine; Visit Provider Internal Medicine
DX: Z12.5 Encounter for screening for malignant neoplasm of prostate (principal); E78.00 Pure hypercholesterolemia, unspecified; R73.02 Impaired glucose tolerance (oral); I10 Essential (primary) hypertension
CPT/HCPCS: 36415; 80048; 80053; 80061; 82607; 82746; 83880; 84153; 84439; 84443; 85025

== ENCOUNTER 2022-11-12 07:03 | Outpatient (REF) | payer OTHER, MEDICARE, SELFPAY ==
--- NOTE | ~2022-11-12 | XR_ITS ---
EXAMINATION: XR cervical spine 2V CLINICAL INFORMATION: Pain COMPARISON: Cervical spine radiographs 06/04/2016 TECHNIQUE: 3 views of the cervical spine were obtained. FINDINGS: The cervical spine is visualized to the level of C7-T1 on the lateral view. Vertebral body alignment is maintained. Vertebral body heights are maintained. Moderate degenerative disc disease at C5-C6 through C7-T1, manifested by loss of disc space height, degenerative endplate spurring and facet arthropathy, similar to prior. Lateral masses of C1 are well aligned on C2. Visualized portion of the dens is intact. No prevertebral soft tissue swelling. Calcifications in the soft tissue of the right neck may reflect carotid calcifications. XR/XR cervical spine 2V IMPRESSION: 1. Moderate spondylosis of the cervical spine, as above detailed, similar to prior. 2. Calcifications in the soft tissue of the right neck may reflect carotid calcifications.
== END 2022-11-12 07:04 | disposition home or self-care (01) ==
LOC: HO.XRAY 07:03
PROVIDERS: PCP Internal Medicine; Visit Provider Internal Medicine
DX: M54.2 Cervicalgia (principal)
CPT/HCPCS: 72040

== ENCOUNTER 2022-11-20 09:14 | Outpatient (AMB) | payer OTHER, MEDICARE, SELFPAY ==
[2022-11-20 09:23] VITALS: BP 138/82; PULSE 78; O2SAT 97; BMI 30.2
--- NOTE | 2022-11-20 09:23 | A.OFFPC_ITS ---
Vital Signs 11/20/22 09:23 Height 5 ft 7 in Weight 193 lb BMI 30.2 BP 138/82 Blood Pressure Location Lt brachial Position Sitting Pulse 78 Pulse Source Pulse Oximeter Pulse Oximetry (%) 97 Oxygen Delivery Method Room Air Intake Visit Reasons: 6mth f/u Allergies amlodipine Adverse Reaction (Intermediate, Verified 11/20/22 09:23) leg swelling Environmental Allergy (Mild, Uncoded 11/20/22 09:23) ITCHY EYES pollen Allergy (Mild, Uncoded 11/20/22 09:23) Itchy Eyes RAGWEED Allergy (Mild, Uncoded 11/20/22 09:23) STUFFY NOSE WATERY EYES weed Allergy (Mild, Uncoded 11/20/22 09:23) Itchy Eyes Tobacco use date assessed: 05/23/22 Fall risk assessment: No Falls in past year Last assessed Fall Risk: 11/20/22 Dental Screening Dental Screen Date: 11/20/22 Did you have a dental visit in the last 12 months?: No Did you have a dental problem in the last 6 months where you did not have access to dental care?: No Was dental information given to patient?: Patient has dentist HPI 6mth f/u HPI Details 76-year-old obese male with hypercholesterolemia GERD BPH atrial fibrillation hypertension impaired glucose tolerance coming in for follow-up. Last seen in May 2022 having neck pain and an x-ray was requested showing Moderate spondylosis of the cervical spine, as above detailed, similar to prior. 2. Calcifications in the soft tissue of the right neck may reflect carotid calcifications. Patient has seen Rheumatology also for the osteoarthritis shoulder pain gout had an injection of left glenohumeral joint. Bilateral ear itchiness hearing is ok. watery eye and nasal clear discharge- went to pharmacy and advised clotrimazole but discussed with the patient that this is not the right medication. Otherwise patient has been doing fine . [facility] Medical History Adult general medical exam BPH (benign prostatic hyperplasia) Cervical radiculopathy due to degenerative joint disease of spine Chronic prostatitis Eye exam, routine GERD (gastroesophageal reflux disease) Gout History of rib fracture Hypercholesterolemia Leg edema Obesity (BMI 30-39.9) Osteoarthritis Persistent atrial fibrillation Pulmonary hypertension Screening for diabetes mellitus Testicle swelling Vitamin D deficiency Surgical History History of colonoscopy History of inguinal hernia repair History of prostate biopsy Family History Father CVD (cardiovascular disease) Mother CVD (cardiovascular disease) Diabetes Sister No problems noted. Son No problems noted. Daughter No problems noted. Social History Household Members: None Housing: Apartment Do you presently have visiting nurse or other home services: No Alcohol intake: current Alcohol intake frequency: a few times a week Alcohol type: beer Patient Tobacco Use Status: Never used Tobacco e-Cigarette/Vaping Use: Never Used Second Hand Smoke Exposure: No service: No Current occupational status: employed Cognitive needs: No Hearing needs: No Vision needs: Yes Questionnaire PHQ-9 Over the last 2 weeks, how often have you been bothered by any of the following problems? 1. Little interest or pleasure in doing things: not at all 2. Feeling down, depressed, or hopeless: not at all 3. Trouble falling or staying asleep, or sleeping too much: not at all 4. Feeling tired or having little energy: not at all 5. Poor appetite or overeating: not at all 6. Feeling bad about yourself - or that you are a failure or have let yourself or your family down: not at all 7. Trouble concentrating on things, such as reading the newspaper or watching television: not at all 8. Moving or speaking so slowly that other people could have noticed. Or the opposite - being so fidgety or restless that you have been moving around a lot more than usual: not at all 9. Thoughts that you would be better off or of hurting yourself in some way: not at all Total score: 0 Depression Screening Interpretation: Negative Source: Developed by Drs. Joe Rosenbaum, Eva Waggoner, Devyn Wright and colleagues, with an educational dieter from [employer]. Thrive Questionnaire Date Thrive assessed: 05/23/22 AUDIT C Alcohol Use Questionnaire (AUDIT-C) 1. How often do you have a drink containing alcohol?: Never 2. How many drinks containing alcohol do you have on a typical day when you are drinking?: 1 or 2 3. How often do you have six or more drinks on one occasion?: Never Total Score: 0 Score Reviewed/Action Taken: No SHRUTI-7 AMB Questionnaire SHRUTI-7 Date SHRUTI - 7 assessed: 05/23/22 Source: Developed by Drs. Joe Rosenbaum, Eva Waggoner, Devyn Wright and colleagues, with an educational dieter from [employer]. Physical exam (Primary Care) Vital Signs: Last Vital Signs Pulse 78 11/20/22 09:23 BP 138/82 11/20/22 09:23 Pulse Ox 97 11/20/22 09:23 Oxygen Delivery Method Room Air 11/20/22 09:23 BMI result Body Mass Index 30.2 Tobacco/Smoking Status: Tobacco use Status Tobacco use date assessed 05/23/22 11/20/22 09:24 Patient Tobacco Use Status Never used Tobacco 11/20/22 09:24 e-Cigarette/Vaping Use Never Used 11/20/22 09:24 PHQ-9: PHQ-9 Score PHQ-9: Total score 0 11/20/22 09:30 Depression Screening Interpretation: Negative Thrive Assessment: Date of Thrive Assessment Date Thrive assessed 05/23/22 11/20/22 09:24 Const General: alert; No acute distress Eyes Conjunctivae: conjunctivae normal Resp Auscultation: clear to auscultation bilaterally Cardio Rate: regular rate Rhythm: regular rhythm GI Inspection: Yes normal to inspection Extrem General: Yes normal to inspection and No edema Assessment and Plan Assessment & Plan (1) Degenerative cervical disc: Code(s): M50.30 - Other cervical disc degeneration, unspecified cervical region Plan: Keep active stretches. Avoid heavy lifting (2) Impaired glucose tolerance: Code(s): R73.02 - Impaired glucose tolerance (oral) Plan: Decrease the amount of carbohydrate intake, pasta, bread, rice and potatoes are all sugar and that is aside from all the sweet stuff, remember that fruits are good but they are Sweet also. (3) Persistent atrial fibrillation: Code(s): I48.19 - Other persistent atrial fibrillation Plan: Continue with anticoagulation (4) GERD (gastroesophageal reflux disease): Code(s): K21.9 - Gastro-esophageal reflux disease without esophagitis Qualifiers: Esophagitis presence: without esophagitis Qualified Code(s): K21.9 - Gastro-esophageal reflux disease without esophagitis Plan: Avoid the foods that causes that usually spicy foods, tomato products, juices, coffee, soda and foods that your sensitive to. After eating do not lie down, allow 3-4 hours before in lie down. And keep the head of bed above 30 degrees to avoid the acid from going up. (5) Hypercholesterolemia: Code(s): E78.00 - Pure hypercholesterolemia, unspecified Plan: Avoid fried foods, chicken skin, eggs, butter margarine, pastries and meat. Be it pork or beef they have a lot of cholesterol LDL goal of less than 130 and triglyceride of less than 150 (6) Essential hypertension: Code(s): I10 - Essential (primary) hypertension Plan: Continue with blood pressure medication. Decrease salt intake and exercise patient is on lisinopril 40 mg hydralazine 10 mg twice a day metoprolol 100 mg once a day and spironolactone 50 mg once a day (7) Primary osteoarthritis, left shoulder: Code(s): M19.012 - Primary osteoarthritis, left shoulder Plan: Patient has met with rheumatology and has had injections (8) Otitis externa: Code(s): H60.90 - Unspecified otitis externa, unspecified ear Plan: Ear drop prescribed Orders: Orders B Type Natriuretic Peptide Today I48.19 - Other persistent atrial fibrillation Magnesium Today I48.19 - Other persistent atrial fibrillation Medications: New hydrocortisone-acetic acid 1-2 % 4 drps otic (ears) TID 10 mL 1RF H60.90 - Unspecified otitis externa, unspecified ear Coding Level of Care Code Est Pt Level 4 (13202) Diagnoses Degenerative cervical disc M50.30 Impaired glucose tolerance R73.02 Persistent atrial fibrillation I48.19 GERD (gastroesophageal reflux disease) K21.9 Esophagitis presence: without esophagitis Hypercholesterolemia E78.00 Essential hypertension I10 Primary osteoarthritis, left shoulder M19.012 Otitis externa H60.90 Additional Codes PHQ-9 - 88156 - PHQ-9 Billing: Y ([id number])
== END 2022-11-20 13:11 | disposition home or self-care (01) ==
PROVIDERS: PCP Internal Medicine; Visit Provider Internal Medicine
DX: M50.30 Other cervical disc degeneration, unspecified cervical region (principal); I48.19 Other persistent atrial fibrillation; K21.9 Gastro-esophageal reflux disease without esophagitis; I10 Essential (primary) hypertension; R73.02 Impaired glucose tolerance (oral); E78.00 Pure hypercholesterolemia, unspecified; M19.012 Primary osteoarthritis, left shoulder; H60.90 Unspecified otitis externa, unspecified ear
CPT/HCPCS: 99214

== ENCOUNTER 2023-01-17 08:14 | Outpatient (REF) | payer OTHER, MEDICARE, SELFPAY ==
[2023-01-17 11:24] LABS: MANUAL DIFF FLAG NO
[2023-01-17 11:29] LABS: Basophils Percent Auto 0.2 % (0-2); Eosinophils Absolute Auto 0.1 X10*3/uL (0.0-0.4); Eosinophils Percent Auto 1.6 % (0-4); Hematocrit 44.8 % (42.0-52.0); Imm Gran Abs Auto 0.01 X10*3/uL (0.00-0.03); Imm Gran Pct Auto 0.2 % (0.0-0.4); Lymphocytes Absolute Auto 1.6 X10*3/uL (1.2-4.9); Lymphocytes Percent Auto 32.3 % (20-40); Mean Corpuscular HGB Conc 33.5 g/dl (31.0-36.0); Mean Corpuscular Hemoglobin 33.5 pg (27.0-33.0); Monocytes Absolute Auto 0.5 X10*3/uL (0.1-1.2); Monocytes Percent Auto 9.1 % (2-11); Neutrophils Absolute Auto 2.9 x10*3/uL (2.0-8.3); Neutrophils Percent Auto 56.6 % (45-73); Platelet Count 181 X10*3/uL (160-400); Red Blood Count 4.48 X10*6/uL (4.60-5.80); White Blood Count 5.1 X10*3/uL (4.8-10.8)
[2023-01-17 11:51] LABS: B Type Natriuretic Peptide 113 pg/mL (<100)
[2023-01-17 12:01] LABS: Alanine Aminotransferase 19 U/L (0-40); Albumin Level 4.4 g/dL (3.5-5.0); Alkaline Phosphatase 50 U/L (39-117); Anion Gap 15 (12-20); Aspartate Amino Transferase 22 U/L (5-37); Bilirubin Total 1.2 mg/dL (0.0-1.0); Blood Urea Nitrogen 18 mg/dL (9-16); Calcium 9.8 mg/dL (8.4-10.2); Carbon Dioxide 28 mmol/L (22-29); Chloride 103 mmol/L (96-108); Cholesterol 185 mg/dL (<200); Estimated Glomerular Filt Rate > 60; Glucose Random 93 mg/dL (60-115); HDL Cholesterol 53 mg/dL (>40); LDL Cholesterol Calculated 110 mg/dL (<100); Potassium 3.5 mmol/L (3.3-5.1); Sodium 142 mmol/L (135-145); Total Protein 7.5 g/dL (6.5-8.0); Triglycerides 114 mg/dL (<150)
[2023-01-17 12:02] LABS: Free T4 (Free Thyroxine) 0.95 ng/dL (0.71-1.85); Thyroid Stimulating Hormone 1.18 uIU/mL (0.32-4.0)
[2023-01-17 12:03] LABS: Prostate Specific Antigen 1.17 ng/mL (<0.05-4.0)
[2023-01-17 12:13] LABS: Folate 13.5 ng/mL (> or = 4.0); Prostate Specific Antigen Scr 1.13 ng/mL (<0.05-4.0); Vitamin B12 430 pg/mL (200-900)
== END 2023-01-17 08:15 | disposition home or self-care (01) ==
LOC: HO.HMGCLDS 08:14
PROVIDERS: Absent Provider Urology; PCP Internal Medicine; Visit Provider Internal Medicine
DX: Z12.5 Encounter for screening for malignant neoplasm of prostate (principal); R97.20 Elevated prostate specific antigen [PSA]; I10 Essential (primary) hypertension; I48.19 Other persistent atrial fibrillation; E78.00 Pure hypercholesterolemia, unspecified
CPT/HCPCS: 36415; 80053; 80061; 82607; 82746; 83735; 83880; 84153; 84439; 84443; 85025

== ENCOUNTER 2023-01-30 08:37 | Outpatient (AMB) | payer OTHER, MEDICARE, SELFPAY ==
[2023-01-30 08:48] VITALS: BP 138/86; PULSE 83; O2SAT 98; BMI 30.7
--- NOTE | 2023-01-30 08:48 | A.OFFVIS_ITS ---
Intake Vital Signs 01/30/23 08:48 Height 5 ft 7 in Weight 196 lb BMI 30.7 BP 138/86 Blood Pressure Location Lt brachial Position Sitting Pulse 83 Pulse Source Pulse Oximeter Temp Source Skin Pulse Oximetry (%) 98 Oxygen Delivery Method Room Air Intake Visit Reasons: SAWV [id number], Discuss/Bill ACP Allergies amlodipine Adverse Reaction (Intermediate, Verified 01/30/23 09:07) leg swelling Environmental Allergy (Mild, Uncoded 01/30/23 09:07) ITCHY EYES pollen Allergy (Mild, Uncoded 01/30/23 09:07) Itchy Eyes RAGWEED Allergy (Mild, Uncoded 01/30/23 09:07) STUFFY NOSE WATERY EYES weed Allergy (Mild, Uncoded 01/30/23 09:07) Itchy Eyes Medication List - Last Reconciled 01/30/23 by ROCHELLE Holt allopurinol 100 mg PO DAILY apixaban (Eliquis) 5 mg PO BID blood pressure monitor (Blood Pressure Kit) As directed finasteride 5 mg PO DAILY 90 days hydralazine 10 mg PO BID 90 days hydrocortisone-acetic acid 1-2 % 4 drps otic (ears) TID lisinopril 40 mg PO DAILY metoprolol succinate ER 100 mg PO DAILY 90 days spironolactone 50 mg PO DAILY HPI SAWV [id number], Discuss/Bill ACP HPI Details Patient is a 77-year-old male who presents today for subsequent wellness visit. Patient of Dr. Salazar. Patient is up-to-date with his health preventative screenings. Today we discussed patient's need for tetanus vaccine. [place] of care was reviewed with the patient and he was provided with a screening schedule. Healthcare proxy and MOLST forms on file. In addition, patient reports intermittent right ear popping sensation, no pain, physical exam did show mild fluid behind right TM, no erythema, advised patient to try [id number] Claritin 1 tablet daily p.r.n.. Notify office if no improvement. [facility] Medical History (Updated 01/30/23 @ 09:27 by ROCHELLE Holt) Vitamin B12 deficiency Anemia Vitamin B12 deficiency Otitis externa Adult general medical exam Eye exam, routine Screening for diabetes mellitus Testicle swelling Pulmonary hypertension Persistent atrial fibrillation Leg edema History of rib fracture Gout Obesity (BMI 30-39.9) BPH (benign prostatic hyperplasia) Osteoarthritis Chronic prostatitis Cervical radiculopathy due to degenerative joint disease of spine GERD (gastroesophageal reflux disease) Vitamin D deficiency Hypercholesterolemia Surgical History History of colonoscopy History of prostate biopsy History of inguinal hernia repair Family History Father CVD (cardiovascular disease) Mother CVD (cardiovascular disease) Diabetes Sister No problems noted. Son No problems noted. Daughter No problems noted. Social History Household Members: None Housing: Apartment Do you presently have visiting nurse or other home services: No Alcohol intake: current Alcohol intake frequency: a few times a week Alcohol type: beer Patient Tobacco Use Status: Never used Tobacco e-Cigarette/Vaping Use: Never Used Second Hand Smoke Exposure: No service: No Current occupational status: employed Cognitive needs: No Hearing needs: No Vision needs: Yes Questionnaire Medicare Wellness Checkup [age] What gender do you identify with?: male During the past 4 weeks, how much have you been bothered by emotional problems such as feeling anxious, depressed, irritable, sad or downhearted, and blue?: not at all During the past 4 weeks, has your physical & emotional health limited your social activities with family, friends, neighbors, or groups?: not at all During the past 4 weeks, how much bodily pain have you generally had?: very mild pain During the past 4 weeks, was someone available to help you if you needed & wanted help?: yes, as much as I wanted During the past 4 weeks, what was the hardest physical activity you could do for at least 2 minutes?: moderate Can you get to places out of walking distance without help? (For eg., can you travel alone on buses, taxis or drive your car?): Yes Can you go shopping for groceries or clothes without someone's help?: Yes Can you prepare your own meals?: Yes Can you do your housework without help?: Yes Because of any health problems, do you need the help of another person with your personal care needs such as eating, bathing, dressing or getting around the house?: No Can you handle your own money without help?: Yes During the past 4 weeks, how would you rate your health in general?: good During the past 4 weeks how have things been going for you?: pretty well Are you having difficulties driving your car?: no Do you always fasten your seat belt when you are in a car?: yes, usually During past 4 weeks, have you been bothered by the following: never: Falling or dizzy when standing up, Sexual problems?, Trouble eating well?, Teeth or denture problems?, Problems using the telephone? and Tiredness or fatigue? Have you fallen 2 or more times in the past year?: No Are you afraid of falling?: Yes Are you a smoker?: no During the past 4 weeks, how many drinks of wine, beer, or other alcoholic beverages did you have?: 2-5 drinks per week Do you exercise for about 20 minutes 3 or more times a week?: yes, some of the time Have you been given information to help with the following?: yes: Keeping track of your medications? and no: Hazards in your house that might hurt you? How often do you have trouble taking medicines the way you have been told to take them?: I always take medicine as prescribed How confident are you that you can control & manage most of your health problems?: very confident What is your race?: or origin or descent Mini Mental State Exam (MMSE) Orientation What is the (year) (season) (date) (day) (month)?: year, season, date, day and month Score Score: 5 Activity of Daily Living Bathing - sponge bath, tub bath or shower: receives no assistance (gets in/out by self, if usual bathing means Dressing - getting clothes from closets & drawers, including inner/outer garments & fasteners.: gets clothes & gets completely dressed without help Toileting - going to the 'toilet room' for urine/bowel elimination & cleaning self/arranging clothes: goes to toilet room, cleans self, arranges clothes without help Transfer: moves in & out of bed and chair without help (may use support object) Continence: controls urination/bowel movements completely by self Feeding: feeds self without help Total Score: 0 Information obtained from: patient Using telephone: independent Traveling: independent Shopping: independent Preparing meals: independent Housework: independent Taking medicine: independent Managing money: independent PHQ-9 Over the last 2 weeks, how often have you been bothered by any of the following problems? 1. Little interest or pleasure in doing things: not at all 2. Feeling down, depressed, or hopeless: not at all 3. Trouble falling or staying asleep, or sleeping too much: not at all 4. Feeling tired or having little energy: not at all 5. Poor appetite or overeating: not at all 6. Feeling bad about yourself - or that you are a failure or have let yourself or your family down: not at all 7. Trouble concentrating on things, such as reading the newspaper or watching television: not at all 8. Moving or speaking so slowly that other people could have noticed. Or the opposite - being so fidgety or restless that you have been moving around a lot more than usual: not at all 9. Thoughts that you would be better off or of hurting yourself in some way: not at all Total score: 0 Depression Screening Interpretation: Negative Depression Screening Done: Yes [id number] - PHQ-9 Billing: Yes Source: Developed by Drs. Joe Rosenbaum, Eva Waggoner, Devyn Wright and colleagues, with an educational dieter from [facility]. Physical Exam Vital Signs: Last Vital Signs Pulse 83 01/30/23 08:48 BP 138/86 01/30/23 08:48 Pulse Ox 98 01/30/23 08:48 Oxygen Delivery Method Room Air 01/30/23 08:48 BMI result Body Mass Index 30.7 Const General: cooperative and no acute distress Orientation/consciousness: patient oriented x3 HEENT Other: Whisper test: pass Right TM no erythema, mild fluid noted behind right TM Left TM normal Neuro Other: Balance: Normal Get up and walk: able to Romberg: negative Tandem gait: unable to General: patient oriented x3 Office Procedures Flu Questionnaire Does the patient have a severe egg allergy?: No Does the patient have severe life threatening allergies?: No Does the patient have a fever or illness today?: No Has the patient ever had Guillain-[place] Syndrome?: No Has the patient ever had any past reaction to a flu shot?: No Immunizations flu vacc [id number] 6mos up(PF) 60 mcg(15 mcgx4)/0.5 mL IM syringe Performing Provider: ROCHELLE Holt Performing Location: [facility] Administered by: ROMELIA Almendarez on 01/30/23 09:38 Dose Route Admin Location Dispensed Lot Number Expiration Date ND Test And Balance Engineer 0.5 mL IM Left Deltoid 0.5 mL [id number] 10/18/23 05596-796-46 [employer] VIS Given Date VIS Provided VIS Publication Date 01/30/23 Single Vaccine 20 Eligibility Eligibility Date Funding Source Not VFC Eligible 01/30/23 Private tetanus-diphtheria toxoids-Td 2 Lf unit-2 Lf unit/0.5 mL IM suspension Performing Provider: ROCHELLE Holt Performing Location: [facility] Administered by: ROMELIA Almendarez on 01/30/23 09:38 Dose Route Admin Location Dispensed Lot Number Expiration Date ND Test And Balance Engineer 0.5 mL IM Right Deltoid 0.5 mL [id number] 08/24/23 [address]-2 [employer] VIS Given Date VIS Provided VIS Publication Date 01/30/23 Single Vaccine 20 Eligibility Eligibility Date Funding Source Not VFC Eligible 01/30/23 State funds Assessment & Plan Assessment & Plan (1) Adult general medical exam: Code(s): Z00.00 - Encounter for general adult medical examination without abnormal findings (2) Impaired glucose tolerance: Code(s): R73.02 - Impaired glucose tolerance (oral) Plan: Random glucose 93 12/2022 (3) Pulmonary hypertension: Code(s): I27.20 - Pulmonary hypertension, unspecified Plan: Continue to follow-up with cardiology as scheduled (4) Essential hypertension: Code(s): I10 - Essential (primary) hypertension Plan: Continue to follow-up with cardiology as scheduled Continue current treatment (5) Persistent atrial fibrillation: Code(s): I48.19 - Other persistent atrial fibrillation Plan: Continue to follow-up with cardiology as scheduled On Eliquis 5 mg 2 times a day On metoprolol 100 mg daily (6) Elevated PSA: Code(s): R97.20 - Elevated prostate specific antigen [PSA] Plan: Continue to follow-up with urology Dr. Ortiz (7) Obesity (BMI 30-39.9): Code(s): E66.9 - Obesity, unspecified Plan: Reinforced healthy food choices and exercise as tolerated (8) BPH (benign prostatic hyperplasia): Code(s): N40.0 - Benign prostatic hyperplasia without lower urinary tract symptoms Qualifiers: Lower urinary tract symptom detail: urinary frequency Lower urinary tract symptom presence: symptoms present Qualified Code(s): N40.1 - Benign prostatic hyperplasia with lower urinary tract symptoms; R35.0 - Frequency of micturition Plan: Continue to follow-up with urology (9) GERD (gastroesophageal reflux disease): Code(s): K21.9 - Gastro-esophageal reflux disease without esophagitis Qualifiers: Esophagitis presence: without esophagitis Qualified Code(s): K21.9 - Gastro-esophageal reflux disease without esophagitis Plan: Avoid GERD trigger foods (10) Hypercholesterolemia: Code(s): E78.00 - Pure hypercholesterolemia, unspecified Plan: Encouraged low-cholesterol diet (11) Osteoarthritis: Code(s): M19.90 - Unspecified osteoarthritis, unspecified site Qualifiers: Osteoarthritis location: multiple joints Osteoarthritis type: primary Qualified Code(s): M89.49 - Other hypertrophic osteoarthropathy, multiple sites Plan: Continue to follow-up with arthritis treatment center Dr. Smith Orders: Orders Influenza [id number] Immunization Today Z23 - Encounter for immunization Td State Immunization Today Z23 - Encounter for immunization Quality Reporting (2019) Depression/Bipolar (159/160/161/177) PHQ-9: Total score: 0 Coding Level of Care Code Medicare Subsequent (G0439) Diagnoses Adult general medical exam Z00.00 Impaired glucose tolerance R73.02 Pulmonary hypertension I27.20 Essential hypertension I10 Persistent atrial fibrillation I48.19 Elevated PSA R97.20 Obesity (BMI 30-39.9) E66.9 Benign prostatic hyperplasia with urinary frequency N40.1; R35.0 Lower urinary tract symptom detail: urinary frequency Lower urinary tract symptom presence: symptoms present Gastroesophageal reflux disease without esophagitis K21.9 Esophagitis presence: without esophagitis Hypercholesterolemia E78.00 Primary osteoarthritis involving multiple joints M89.49 Osteoarthritis location: multiple joints Osteoarthritis type: primary CPT Codes Advance Care Planning - Advance Care Planning discussion: On file, no changes ([id number]) Advance Care Planning - Time spent: 1-15 minutes, on File ([id number]) Advance Care Planning Advance Care Planning discussion: On file, no changes Date of discussion: 01/30/23 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
== END 2023-01-30 09:32 | disposition home or self-care (01) ==
PROVIDERS: Visit Provider Nurse Practitioner Family
DX: Z00.00 Encounter for general adult medical examination without abnormal findings (principal); R73.02 Impaired glucose tolerance (oral); I27.20 Pulmonary hypertension, unspecified; I48.19 Other persistent atrial fibrillation; N40.1 Benign prostatic hyperplasia with lower urinary tract symptoms; R35.0 Frequency of micturition; K21.9 Gastro-esophageal reflux disease without esophagitis; E78.00 Pure hypercholesterolemia, unspecified; M89.49 Other hypertrophic osteoarthropathy, multiple sites
CPT/HCPCS: 1123F; 90471; 90472; 90686; 90714; 99397; G0439

== ENCOUNTER 2023-02-04 12:09 | Outpatient (AMB) | payer OTHER, MEDICARE, SELFPAY ==
[2023-02-04 12:34] VITALS: BP 128/64; PULSE 66; BMI 31.4
--- NOTE | 2023-02-04 12:34 | A.OFFVIS_ITS ---
Intake Vital Signs 02/04/23 12:34 Height 5 ft 7 in Weight 200 lb 6.403 oz BMI 31.4 BP 128/64 Blood Pressure Location Lt brachial Position Sitting Pulse 66 Intake Visit Reasons: 1 year follow up Intake Note: 1 year follow up w/ EKG Director Cloud Transformation Required: No Accompanied by: Self / Same As Patient Allergies amlodipine Adverse Reaction (Intermediate, Verified 02/04/23 12:34) leg swelling Environmental Allergy (Mild, Uncoded 02/04/23 12:34) ITCHY EYES pollen Allergy (Mild, Uncoded 02/04/23 12:34) Itchy Eyes RAGWEED Allergy (Mild, Uncoded 02/04/23 12:34) STUFFY NOSE WATERY EYES weed Allergy (Mild, Uncoded 02/04/23 12:34) Itchy Eyes Medication List - Last Reconciled 02/04/23 by Adin Suarez MD allopurinol 100 mg PO DAILY apixaban (Eliquis) 5 mg PO BID blood pressure monitor (Blood Pressure Kit) As directed finasteride 5 mg PO DAILY hydralazine 10 mg PO BID 90 days hydrocortisone-acetic acid 1-2 % 4 drps otic (ears) TID lisinopril 40 mg PO DAILY metoprolol succinate ER 100 mg PO DAILY 90 days spironolactone 50 mg PO DAILY HPI HPI Comments History of Present Illness Details Tracy returns for follow-up regarding atrial fibrillation and hypertension. Overall, he is feeling quite good. No complaints like angina or shortness of breath or in fact anything cardiac sounding. Seems to be getting along fine. Compliant with all his medications. [facility] Medical History (Updated 01/30/23 @ 09:27 by ROCHELLE Holt) Vitamin B12 deficiency Anemia Vitamin B12 deficiency Otitis externa Adult general medical exam Eye exam, routine Screening for diabetes mellitus Testicle swelling Pulmonary hypertension Persistent atrial fibrillation Leg edema History of rib fracture Gout Obesity (BMI 30-39.9) BPH (benign prostatic hyperplasia) Osteoarthritis Chronic prostatitis Cervical radiculopathy due to degenerative joint disease of spine GERD (gastroesophageal reflux disease) Vitamin D deficiency Hypercholesterolemia Surgical History History of colonoscopy History of prostate biopsy History of inguinal hernia repair Family History Father CVD (cardiovascular disease) Mother CVD (cardiovascular disease) Diabetes Sister No problems noted. Son No problems noted. Daughter No problems noted. Social History Household Members: None Housing: Apartment Do you presently have visiting nurse or other home services: No Alcohol intake: current Alcohol intake frequency: a few times a week Alcohol type: beer Patient Tobacco Use Status: Never used Tobacco e-Cigarette/Vaping Use: Never Used Second Hand Smoke Exposure: No service: No Current occupational status: employed Cognitive needs: No Hearing needs: No Vision needs: Yes Review of Systems Const Denies weakness ENT Denies dizziness Card Denies chest pain, Denies chest pain with activity, Denies syncope, Denies rapid heart rate, Denies pedal edema, Denies edema, Denies leg edema, Denies lightheadedness, Denies palpitations, Denies dyspnea, Denies dyspnea on exertion and Denies orthopnea Resp Denies cough, Denies dyspnea and Denies dyspnea on exertion GI Denies hematochezia and Denies change in stool character Musc Denies abnormal gait, Denies muscle cramps, Denies muscle weakness, Denies numbness, Denies radiating pain into limb and Denies tingling Neuro Denies abnormal gait, Denies dizziness, Denies syncope, Denies numbness, Denies tingling and Denies weakness Endo Denies palpitations Physical Exam Vital Signs: Last Vital Signs Pulse 66 02/04/23 12:34 BP 128/64 02/04/23 12:34 BMI result Body Mass Index 31.4 Const General: comfortable and no acute distress Orientation/consciousness: patient oriented x3 HEENT Other: Unremarkable Head: Yes normal to inspection Neck Neck: Yes normal visual inspection Chest Chest palpation & inspection: normal inspection of the chest Resp Auscultation: clear to auscultation bilaterally Cardio Palpation: normal PMI Heart sounds: S1 normal heart sound present, S2 normal heart sound present, no gallops, no murmurs and no rubs GI Palpation (GI): Soft to palpation Back/Spine/Pelvis Other: unremarkable Skin General skin exam: no rashes or lesions noted Neuro General: patient oriented x3 Extrem General: Yes normal to inspection Psych Mental Status: mental status grossly normal Office Procedures EKG Details: EKG with atrial fibrillation at 66/Min; no significant ST-T changes and otherwise unremarkable. [place] [id number], Complete Assessment & Plan Assessment & Plan (1) Persistent atrial fibrillation: Code(s): I48.19 - Other persistent atrial fibrillation Plan: Continue metoprolol and Eliquis. (2) Essential hypertension: Code(s): I10 - Essential (primary) hypertension Plan: Seems stable. No changes. (3) Non-rheumatic mitral regurgitation: Code(s): I34.0 - Nonrheumatic mitral (valve) insufficiency Plan: Last echocardiogram shows [id number] mitral regurgitation. Not hemodynamically significant. As clinically indicated, can repeat echocardiogram. (4) Pulmonary hypertension: Code(s): I27.20 - Pulmonary hypertension, unspecified Plan: Last echocardiogram had mild pulmonary hypertension. Probably all from atrial fibrillation as well as left heart diastolic dysfunction. No specific management. Medications: Changed From finasteride 5 mg PO DAILY 90 days 90 tabs 2RF N13.8 - Other obstructive and reflux uropathy, N40.1 - Benign prostatic hyperplasia with lower urinary tract symptoms, R33.9 - Retention of urine, unspecified, R97.20 - Elevated prostate specific antigen [PSA] To finasteride 5 mg PO DAILY N13.8 - Other obstructive and reflux uropathy, N40.1 - Benign prostatic hyperplasia with lower urinary tract symptoms, R33.9 - Retention of urine, unspecified, R97.20 - Elevated prostate specific antigen [PSA] Coding Level of Care Code Est Pt Level 4 (01195) Diagnoses Persistent atrial fibrillation I48.19 Essential hypertension I10 Non-rheumatic mitral regurgitation I34.0 Pulmonary hypertension I27.20 CPT Codes EKG - CPT: [id number], Complete ([id number])
== END 2023-02-04 12:46 | disposition home or self-care (01) ==
PROVIDERS: PCP Internal Medicine; Visit Provider Internal Medicine
DX: I48.19 Other persistent atrial fibrillation (principal); I10 Essential (primary) hypertension; I34.0 Nonrheumatic mitral (valve) insufficiency; I27.20 Pulmonary hypertension, unspecified
CPT/HCPCS: 93010; 99214

== ENCOUNTER → 2023-02-04 12:09 | Outpatient (BNVA) | payer OTHER, MEDICARE, SELFPAY | PROVIDERS: PCP Internal Medicine; Visit Provider Internal Medicine | DX: I48.19 Other persistent atrial fibrillation (principal); I34.0 Nonrheumatic mitral (valve) insufficiency; I27.20 Pulmonary hypertension, unspecified; I10 Essential (primary) hypertension | CPT/HCPCS: 93005; 99212 ==

== ENCOUNTER 2023-02-12 08:33 | Outpatient (AMB) | payer OTHER, MEDICARE, SELFPAY ==
--- NOTE | 2023-02-12 08:33 | A.OFFVIS_ITS ---
Intake Intake Visit Reasons: 1Y PSA(set) Intake Note: Patient is present for psa/pvr follow up Medication:Finasteride Blood Thinner: Eliquis Fish Smoker Required: No Accompanied by: Self / Same As Patient Allergies amlodipine Adverse Reaction (Intermediate, Verified 02/12/23 08:34) leg swelling Environmental Allergy (Mild, Uncoded 02/12/23 08:34) ITCHY EYES pollen Allergy (Mild, Uncoded 02/12/23 08:34) Itchy Eyes RAGWEED Allergy (Mild, Uncoded 02/12/23 08:34) STUFFY NOSE WATERY EYES weed Allergy (Mild, Uncoded 02/12/23 08:34) Itchy Eyes HPI HPI Comments History of Present Illness Details Heroindo a pleasant male. He is seen for the following urologic conditions - lower urinary tract symptoms - elevated PSA Telemedicine Evaluation 15 min Consultation Elastagen Lien Video attempted Continue good response to finasteride Lab work reviewed August to Thursday, Thursday, Thursday Twelve month follow-up Lower Urinary Tract Baseline mild LUTS Predominantly obstructive Combination nocturia with mild weakness of stream MRI 2019 50 g prostate Current therapy finasteride Elevated PSA Longstanding Baseline PSA running between 7-9 historically - had been in the 2-3 range since 2018 Prostate biopsies 2012 NAD, 2018 NAD Laboratory investigations - 07/08 2.3, 01/08 5.4, 08/09 1.3, 02/08 1.2, 02/09 1.2 Imaging - 01/08 MRI 50 g prostate, question of PI-RADS 3 lesion. No definitive highly suspicious lesion [facility] Medical History (Updated 01/30/23 @ 09:27 by ROCHELLE Holt) Vitamin B12 deficiency Anemia Vitamin B12 deficiency Otitis externa Adult general medical exam Eye exam, routine Screening for diabetes mellitus Testicle swelling Pulmonary hypertension Persistent atrial fibrillation Leg edema History of rib fracture Gout Obesity (BMI 30-39.9) BPH (benign prostatic hyperplasia) Osteoarthritis Chronic prostatitis Cervical radiculopathy due to degenerative joint disease of spine GERD (gastroesophageal reflux disease) Vitamin D deficiency Hypercholesterolemia Surgical History History of colonoscopy History of prostate biopsy History of inguinal hernia repair Family History Father CVD (cardiovascular disease) Mother CVD (cardiovascular disease) Diabetes Sister No problems noted. Son No problems noted. Daughter No problems noted. Social History Household Members: None Housing: Apartment Do you presently have visiting nurse or other home services: No Alcohol intake: current Alcohol intake frequency: a few times a week Alcohol type: beer Patient Tobacco Use Status: Never used Tobacco e-Cigarette/Vaping Use: Never Used Second Hand Smoke Exposure: No service: No Current occupational status: employed Cognitive needs: No Hearing needs: No Vision needs: Yes Review of Systems Const All systems reviewed & are unremarkable except as noted in HPI and below Reports no additional complaints Resp Reports no additional complaints GI Reports no additional complaints Reports as per HPI Musc Reports no additional complaints Physical Exam Telemedicine evaluation Appropriate responses Regular breathing rate and rhythm HEENT Head: Yes normal to inspection Ears: hearing grossly normal bilaterally Eyes General: appearance normal, both eyes and all related structures Neck Neck: Yes normal visual inspection Chest Chest palpation & inspection: normal inspection of the chest Resp Effort & Inspection: normal respiratory effort and able to speak in complete sentences Assessment & Plan Assessment & Plan (1) BPH (benign prostatic hyperplasia): Code(s): N40.0 - Benign prostatic hyperplasia without lower urinary tract symptoms Qualifiers: Lower urinary tract symptom presence: symptoms present Lower urinary tract symptom detail: urinary frequency Qualified Code(s): N40.1 - Benign prostatic hyperplasia with lower urinary tract symptoms; R35.0 - Frequency of micturition Plan Twelve month follow-up Orders: Orders Prostate Specific Antigen 364 Days R97.20 - Elevated prostate specific antigen [PSA] Medications: Changed From finasteride 5 mg PO DAILY N13.8 - Other obstructive and reflux uropathy, N40.1 - Benign prostatic hyperplasia with lower urinary tract symptoms To finasteride Take medication M/W/F 5 mg PO DAILY 90 tabs 2RF 90 days N13.8 - Other obstructive and reflux uropathy, N40.1 - Benign prostatic hyperplasia with lower urinary tract symptoms Patient Instructions: Imaging studies, laboratory and physical exam results were discussed and reviewed in detail. No major barriers to patient understanding were identified. An opportunity to ask questions regarding the treatment plan was provided. All questions were answered. The patient expressed understanding and agreement with the above treatment plan. The patient is aware they should contact our office by phone for worsening of their current condition or the appearance of new urologic symptoms. Compliance is encouraged with any medications and followup testing that is ordered. It is a privilege to participate in the urologic care of your patient. If you have any questions or concerns regarding treatment for the above conditions, or other urologic issues, please do not hesitate to contact me. The office telephone contact is [phone]. This note is constructed using voice recognition software. While every effort has been made to ensure accuracy weigher and grader errors may have been included. Yours sincerely, Dr Dom Ortiz MD, [facility] - Urology Providers of Expert, Compassionate Care for the Genitourinary System Telehealth Telehealth Location of provider rendering services: practice address Location of patient: address on file Patient Identification confirmed using: Name, : Yes Telehealth method: video Patient verbally consented to treatment: Yes Patient verbally consented to billing insurance company: Yes Patient informed of any privacy concerns related to visit: Yes Coding Level of Care Code Tele Est Pt Level 4 (08552) Diagnoses Benign prostatic hyperplasia with urinary frequency N40.1; R35.0 Lower urinary tract symptom presence: symptoms present Lower urinary tract symptom detail: urinary frequency
== END 2023-02-12 09:29 | disposition home or self-care (01) ==
LOC: HO.HUSH 08:33
PROVIDERS: PCP Internal Medicine; Visit Provider Urology
DX: N40.1 Benign prostatic hyperplasia with lower urinary tract symptoms (principal); R35.0 Frequency of micturition
CPT/HCPCS: 99213

== ENCOUNTER → 2023-02-12 08:33 | Outpatient (BNVA) | payer MEDICARE, OTHER, SELFPAY | PROVIDERS: PCP Internal Medicine; Visit Provider Urology ==

== ENCOUNTER 2023-08-03 08:54 | Outpatient (AMB) | payer OTHER, MEDICARE, SELFPAY ==
[2023-08-03 08:59] VITALS: BP 136/68; PULSE 72; O2SAT 98; BMI 30.1
--- NOTE | 2023-08-03 08:59 | A.OFFPC_ITS ---
Vital Signs 08/03/23 08:59 Height 5 ft 7 in Weight 192 lb BMI 30.1 BP 136/68 Blood Pressure Location Lt brachial Position Sitting Pulse 72 Pulse Source Pulse Oximeter Pulse Oximetry (%) 98 Oxygen Delivery Method Room Air Intake Visit Reasons: HTN Allergies amlodipine Adverse Reaction (Intermediate, Verified 08/03/23 08:59) leg swelling Environmental Allergy (Mild, Uncoded 08/03/23 08:59) ITCHY EYES pollen Allergy (Mild, Uncoded 08/03/23 08:59) Itchy Eyes RAGWEED Allergy (Mild, Uncoded 08/03/23 08:59) STUFFY NOSE WATERY EYES weed Allergy (Mild, Uncoded 08/03/23 08:59) Itchy Eyes Tobacco use date assessed: 08/03/23 Fall risk assessment: No Falls in past year Last assessed Fall Risk: 08/03/23 Dental Screening Dental Screen Date: 08/03/23 Did you have a dental visit in the last 12 months?: No Did you have a dental problem in the last 6 months where you did not have access to dental care?: No Was dental information given to patient?: No HPI HTN HPI Details 77-year-old obese male with atrial fibri llation GERD hypercholesterolemia BPH impaired glucose tolerance and osteoarthritis last seen in November 2022. Review of the notes follows up with Rheumatology for the arthritis and gout and had injections in the left shoulder. Patient has seen Urology also and following up with the PSA on finasteride. Cardiovascular has seen the patient in January for the atrial fibrillation last echocardiogram was in 2020 continuing with present medication. [facility] Medical History (Updated 01/30/23 @ 09:27 by ROCHELLE Holt) Vitamin B12 deficiency Anemia Vitamin B12 deficiency Otitis externa Adult general medical exam Eye exam, routine Screening for diabetes mellitus Testicle swelling Pulmonary hypertension Persistent atrial fibrillation Leg edema History of rib fracture Gout Obesity (BMI 30-39.9) BPH (benign prostatic hyperplasia) Osteoarthritis Chronic prostatitis Cervical radiculopathy due to degenerative joint disease of spine GERD (gastroesophageal reflux disease) Vitamin D deficiency Hypercholesterolemia Surgical History History of colonoscopy History of prostate biopsy History of inguinal hernia repair Family History (Updated 08/03/23 @ 09:00 by Mary Ann Garcia CMA) Father CVD (cardiovascular disease) Mother CVD (cardiovascular disease) Diabetes Sister No problems noted. Son No problems noted. Daughter No problems noted. Social History Household Members: None Housing: Other (Staying with son) Do you presently have visiting nurse or other home services: No Alcohol intake: current Alcohol intake frequency: a few times a week Alcohol type: beer Comment: REPORT GIVEN BY MARIA ESTHER PALAFOX RN Patient Tobacco Use Status: Never used Tobacco e-Cigarette/Vaping Use: Never Used Second Hand Smoke Exposure: No service: No Current occupational status: employed Cognitive needs: No Hearing needs: No Vision needs: Yes Questionnaire PHQ-9 Over the last 2 weeks, how often have you been bothered by any of the following problems? 1. Little interest or pleasure in doing things: not at all 2. Feeling down, depressed, or hopeless: not at all 3. Trouble falling or staying asleep, or sleeping too much: not at all 4. Feeling tired or having little energy: not at all 5. Poor appetite or overeating: not at all 6. Feeling bad about yourself - or that you are a failure or have let yourself or your family down: not at all 7. Trouble concentrating on things, such as reading the newspaper or watching television: not at all 8. Moving or speaking so slowly that other people could have noticed. Or the opposite - being so fidgety or restless that you have been moving around a lot more than usual: not at all 9. Thoughts that you would be better off or of hurting yourself in some way: not at all Total score: 0 Depression Screening Interpretation: Negative Depression Screening Done: Yes 55366 - PHQ-9 Billing: Yes Source: Developed by Drs. Joe Rosenbaum, Eva Waggoner, Devyn Wright and colleagues, with an educational dieter from [employer]. Thrive Questionnaire Date Thrive assessed: 08/03/23 I am a: Patient What is your living situation today?: I have a steady place to live Within the past 12 months, did the food you bought not last and you didn't have the money to get more?: Never true Within the past 12 months, did you worry whether your food would run out before you got money to buy more?: Never true Do you have trouble paying for medicines?: No Do you have trouble getting transportation to medical appointments?: No Do you have trouble paying your heating and electricity bill?: No Do you have trouble taking care of your child, family member or friend?: No Do you have trouble with day-to-day activities such as bathing, preparing meals, shopping, managing finances, etc.?: No Are you currently unemployed and looking for a job?: No Are you interested in more education?: No Currently or been in a relationship where the following occur: no concerns reported THRIVE Score: 0 AUDIT C Alcohol Use Questionnaire (AUDIT-C) 1. How often do you have a drink containing alcohol?: Never 2. How many drinks containing alcohol do you have on a typical day when you are drinking?: 1 or 2 3. How often do you have six or more drinks on one occasion?: Never Total Score: 0 Score Reviewed/Action Taken: No SHRUTI-7 AMB Questionnaire SHRUTI-7 Date SHRUTI - 7 assessed: 08/03/23 Feeling nervous, anxious, or on edge: 0 = Not at all Not being able to stop or control worryin = Not at all Worrying too much about different things: 0 = Not at all Trouble relaxin = Not at all Being so restless that it is hard to sit still: 0 = Not at all Becoming easily annoyed or irritable: 0 = Not at all Feeling afraid as if something awful might happen: 0 = Not at all Total SHRUTI-7 score (0-4 normal; 5-9 mild; 10-14 moderate; 15-21 severe): 0 Source: Developed by Drs. Joe Rosenbaum, Eva Waggoner, Devyn Wright and colleagues, with an educational dieter from [employer]. Physical exam (Primary Care) Vital Signs: Last Vital Signs Pulse 72 08/03/23 08:59 BP 136/68 08/03/23 08:59 Pulse Ox 98 08/03/23 08:59 Oxygen Delivery Method Room Air 08/03/23 08:59 BMI result Body Mass Index 30.1 Tobacco/Smoking Status: Tobacco use Status Tobacco use date assessed 08/03/23 08/03/23 09:01 Patient Tobacco Use Status Never used Tobacco 08/03/23 09:01 e-Cigarette/Vaping Use Never Used 08/03/23 09:01 PHQ-9: PHQ-9 Score PHQ-9: Total score 0 08/03/23 09:01 Depression Screening Interpretation: Negative Thrive Assessment: Date of Thrive Assessment Date Thrive assessed 08/03/23 08/03/23 09:01 Currently or been in a relationship where the following occur: no concerns reported Const General: alert; No acute distress Eyes Conjunctivae: conjunctivae normal Resp Auscultation: clear to auscultation bilaterally Cardio Rate: regular rate Rhythm: regular rhythm GI Inspection: Yes normal to inspection Extrem General: Yes normal to inspection and No edema Assessment and Plan Assessment & Plan (1) Persistent atrial fibrillation: Code(s): I48.19 - Other persistent atrial fibrillation Plan: Continue to follow up with Cardiology presently on anticoagulation with Eliquis. Will continue following up with renal function. (2) Essential hypertension: Code(s): I10 - Essential (primary) hypertension Plan: Continue with blood pressure medication. Decrease salt intake and exercise takes hydralazine 10 mg twice a day lisinopril 40 mg once a day metoprolol 100 mg once a day and spironolactone 50 mg once a day (3) Hypercholesterolemia: Code(s): E78.00 - Pure hypercholesterolemia, unspecified Plan: Avoid fried foods, chicken skin, eggs, butter margarine, pastries and meat. Be it pork or beef they have a lot of cholesterol LDL goal of less than 130 and triglyceride of less than 150 December 2022 last blood work. (4) GERD (gastroesophageal reflux disease): Code(s): K21.9 - Gastro-esophageal reflux disease without esophagitis Qualifiers: Esophagitis presence: without esophagitis Qualified Code(s): K21.9 - Gastro-esophageal reflux disease without esophagitis Plan: Avoid the foods that causes that usually spicy foods, tomato products, juices, coffee, soda and foods that your sensitive to. After eating do not lie down, allow 3-4 hours before in lie down. And keep the head of bed above 30 degrees to avoid the acid from going up. (5) BPH (benign prostatic hyperplasia): Code(s): N40.0 - Benign prostatic hyperplasia without lower urinary tract symptoms Qualifiers: Lower urinary tract symptom presence: symptoms present Lower urinary tract symptom detail: urinary frequency Qualified Code(s): N40.1 - Benign prostatic hyperplasia with lower urinary tract symptoms; R35.0 - Frequency of micturition Plan: Patient follows up with urology and had finasteride 5 mg once a day (6) Obesity (BMI 30-39.9): Code(s): E66.9 - Obesity, unspecified Plan: Continue with diet and exercise (7) Primary osteoarthritis, left shoulder: Code(s): M19.012 - Primary osteoarthritis, left shoulder Plan: Patient follows up with Rheumatology and had injections done. Orders: Orders Comprehensive Met. Panel Today I48.19 - Other persistent atrial fibrillation IRON PROFILE Today I48.19 - Other persistent atrial fibrillation Free T4 (Free Thyroxine) Today I48.19 - Other persistent atrial fibrillation Uric Acid Today I48.19 - Other persistent atrial fibrillation Magnesium Today I48.19 - Other persistent atrial fibrillation Complete Blood Count Auto Diff Today I48.19 - Other persistent atrial fibrillation Ferritin Today I48.19 - Other persistent atrial fibrillation Vitamin B12 and Folate Today I48.19 - Other persistent atrial fibrillation Lipid Panel Today E78.00 - Pure hypercholesterolemia, unspecified, I48.19 - Other persistent atrial fibrillation Thyroid Stimulating Hormone Today I48.19 - Other persistent atrial fibrillation Hemoglobin A1c Today I48.19 - Other persistent atrial fibrillation Medications: Refilled hydralazine 10 mg PO BID 90 days 180 tabs 2RF I10 - Essential (primary) hypertension, R60.0 - Localized edema Coding Level of Care Code Est Pt Level 4 (74559) Diagnoses Persistent atrial fibrillation I48.19 Essential hypertension I10 Hypercholesterolemia E78.00 Gastroesophageal reflux disease without esophagitis K21.9 Esophagitis presence: without esophagitis Benign prostatic hyperplasia with urinary frequency N40.1; R35.0 Lower urinary tract symptom presence: symptoms present Lower urinary tract symptom detail: urinary frequency Obesity (BMI 30-39.9) E66.9 Primary osteoarthritis, left shoulder M19.012
== END 2023-08-03 09:46 | disposition home or self-care (01) ==
PROVIDERS: PCP Internal Medicine; Visit Provider Internal Medicine
DX: I48.19 Other persistent atrial fibrillation (principal); I10 Essential (primary) hypertension; E78.00 Pure hypercholesterolemia, unspecified; K21.9 Gastro-esophageal reflux disease without esophagitis; N40.1 Benign prostatic hyperplasia with lower urinary tract symptoms; R35.0 Frequency of micturition; E66.9 Obesity, unspecified; M19.012 Primary osteoarthritis, left shoulder
CPT/HCPCS: 99214

== ENCOUNTER 2024-01-30 07:32 | Outpatient (REF) | payer BC, MEDICARE, SELFPAY ==
[2024-01-30 11:08] LABS: MANUAL DIFF FLAG NO
[2024-01-30 11:09] LABS: Basophils Percent Auto 0.2 % (0-2); Eosinophils Absolute Auto 0.1 X10*3/uL (0.0-0.4); Eosinophils Percent Auto 1.4 % (0-4); Hematocrit 44.2 % (42.0-52.0); Hemoglobin 15.1 g/dl (14.0-18.0); Imm Gran Abs Auto 0.01 X10*3/uL (0.00-0.03); Imm Gran Pct Auto 0.2 % (0.0-0.4); Lymphocytes Absolute Auto 1.7 X10*3/uL (1.2-4.9); Lymphocytes Percent Auto 30.7 % (20-40); Mean Corpuscular HGB Conc 34.2 g/dl (31.0-36.0); Mean Corpuscular Hemoglobin 33.6 pg (27.0-33.0); Mean Corpuscular Volume 98.4 fL (80.0-98.0); Mean Platelet Volume 10.8 fL (9.4-12.4); Monocytes Absolute Auto 0.5 X10*3/uL (0.1-1.2); Monocytes Percent Auto 9.2 % (2-11); Neutrophils Absolute Auto 3.2 x10*3/uL (2.0-8.3); Neutrophils Percent Auto 58.3 % (45-73); Platelet Count 166 X10*3/uL (160-400); Red Blood Count 4.49 X10*6/uL (4.60-5.80); White Blood Count 5.5 X10*3/uL (4.8-10.8)
[2024-01-30 11:23] LABS: Estimated Average Glucose 105 mg/dL; Hemoglobin A1C 126.4711 umol/L; Hemoglobin A1c % 5.3 % (<6.0); Total Hemoglobin (HGBA1C) 3651.8571 umol/L
[2024-01-30 11:29] LABS: Alanine Aminotransferase 17 U/L (0-40); Albumin Level 4.4 g/dL (3.5-5.0); Alkaline Phosphatase 49 U/L (39-117); Anion Gap 13 (12-20); Aspartate Amino Transferase 20 U/L (5-37); Blood Urea Nitrogen 18 mg/dL (9-16); Calcium 9.8 mg/dL (8.4-10.2); Carbon Dioxide 28 mmol/L (22-29); Chloride 104 mmol/L (96-108); Cholesterol 189 mg/dL (<200); Estimated Glomerular Filt Rate > 60; Glucose Random 88 mg/dL (60-115); HDL Cholesterol 55 mg/dL (>40); Iron 96 mcg/dL (45-160); LDL Cholesterol Calculated 110 mg/dL (<100); Percent Iron Saturation 29 % (15-50); Potassium 3.7 mmol/L (3.3-5.1); Sodium 141 mmol/L (135-145); Total Iron Binding Capacity 328 mcg/dL (228-428); Total Protein 7.4 g/dL (6.5-8.0); Triglycerides 122 mg/dL (<150); Unsaturated Iron Binding 232 ug/dL; Uric Acid 5.4 mg/dL (3.4-7.0)
[2024-01-30 11:49] LABS: Ferritin 350 ng/mL (20-250); Thyroid Stimulating Hormone 2.35 uIU/mL (0.32-4.0)
[2024-01-30 11:50] LABS: Prostate Specific Antigen 3.13 ng/mL (<0.05-4.0)
[2024-01-30 12:12] LABS: Folate 12.7 ng/mL (> or = 4.0); Vitamin B12 264 pg/mL (200-900)
== END 2024-01-30 07:33 | disposition home or self-care (01) ==
LOC: HO.HMGCLDS 07:32
PROVIDERS: Urology; PCP Internal Medicine; Visit Provider Internal Medicine
DX: R97.20 Elevated prostate specific antigen [PSA] (principal); E78.00 Pure hypercholesterolemia, unspecified; I48.19 Other persistent atrial fibrillation; Z12.5 Encounter for screening for malignant neoplasm of prostate
CPT/HCPCS: 36415; 80053; 80061; 82607; 82728; 82746; 83036; 83540; 83735; 84153; 84439; 84443; 84550; 85025

== ENCOUNTER 2024-02-04 10:44 | Outpatient (AMB) | payer BC, MEDICARE, SELFPAY ==
[2024-02-04 10:55] VITALS: BP 130/72; PULSE 68; O2SAT 97; BMI 31.0
--- NOTE | 2024-02-04 10:55 | AM.OFFVISMDC ---
Intake Vital Signs 02/04/24 10:55 Height 5 ft 7 in Weight 198 lb 2 oz BMI 31.0 BP 130/72 Blood Pressure Location Lt brachial Position Sitting Pulse 68 Pulse Source Pulse Oximeter Pulse Oximetry (%) 97 Oxygen Delivery Method Room Air Intake Visit Reasons: [facility] [id number] Intake Note: Patient is here for an Annual Wellness Visit. 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: No Allergies amlodipine Adverse Reaction (Intermediate, Verified 02/04/24 10:56) leg swelling Environmental Allergy (Mild, Uncoded 02/04/24 10:56) ITCHY EYES pollen Allergy (Mild, Uncoded 02/04/24 10:56) Itchy Eyes RAGWEED Allergy (Mild, Uncoded 02/04/24 10:56) STUFFY NOSE WATERY EYES weed Allergy (Mild, Uncoded 02/04/24 10:56) Itchy Eyes Medication List - Last Reconciled 02/04/24 by Demetri Salazar MD allopurinol 100 mg PO DAILY apixaban (Eliquis) 5 mg PO BID blood pressure monitor (Blood Pressure Kit) As directed finasteride 5 mg PO DAILY 90 days hydralazine 10 mg PO BID 90 days hydrocortisone-acetic acid 1-2 % 4 drps otic (ears) TID lisinopril 40 mg PO DAILY metoprolol succinate ER 100 mg PO DAILY 90 days spironolactone 50 mg PO DAILY HPI [facility] G0439 HPI Details 78-year-old obese male with atrial fibrillation hypertension hypercholesterolemia GERD BPH coming in for an annual well visit last seen in July 2023. Patient's colon test last done in 2020. Patient is being followed up by our the arthritis treatment center seen September 27 gout right ankle arthritis. And left shoulder pain. Patient had injections done Cardio Dr. Brown, Urology Dr. Conti Rheuma Dr. Burnham. decreased hearing [facility] Medical History (Updated 02/04/24 @ 18:48 by Demetri Salazar MD) Vitamin B12 deficiency Anemia Vitamin B12 deficiency Otitis externa Adult general medical exam Eye exam, routine Screening for diabetes mellitus Testicle swelling Pulmonary hypertension Persistent atrial fibrillation Leg edema History of rib fracture Gout Obesity (BMI 30-39.9) BPH (benign prostatic hyperplasia) Osteoarthritis Chronic prostatitis Cervical radiculopathy due to degenerative joint disease of spine GERD (gastroesophageal reflux disease) Vitamin D deficiency Hypercholesterolemia Surgical History History of colonoscopy History of prostate biopsy History of inguinal hernia repair Family History (Updated 08/03/23 @ 09:00 by Mary Ann Garcia CMA) Father CVD (cardiovascular disease) Mother CVD (cardiovascular disease) Diabetes Sister No problems noted. Son No problems noted. Daughter No problems noted. Social History (Updated 02/04/24 @ 11:54 by Demetri Salazar MD) Household Members: None Housing: Other (Staying with son) Do you presently have visiting nurse or other home services: No Alcohol intake: current Alcohol intake frequency: a few times a week Alcohol type: beer Comment: REPORT GIVEN BY MARIA ESTHER PALAFOX RN weekend mix drinks x2 Patient Tobacco Use Status: Never used Tobacco e-Cigarette/Vaping Use: Never Used Second Hand Smoke Exposure: No service: No Current occupational status: employed Cognitive needs: No Hearing needs: No Vision needs: Yes Questionnaire Medicare Wellness Checkup [age] What gender do you identify with?: male During the past 4 weeks, how much have you been bothered by emotional problems such as feeling anxious, depressed, irritable, sad or downhearted, and blue?: not at all During the past 4 weeks, has your physical & emotional health limited your social activities with family, friends, neighbors, or groups?: not at all During the past 4 weeks, how much bodily pain have you generally had?: very mild pain During the past 4 weeks, was someone available to help you if you needed & wanted help?: yes, as much as I wanted During the past 4 weeks, what was the hardest physical activity you could do for at least 2 minutes?: moderate Can you get to places out of walking distance without help? (For eg., can you travel alone on buses, taxis or drive your car?): Yes Can you go shopping for groceries or clothes without someone's help?: Yes Can you prepare your own meals?: Yes Can you do your housework without help?: Yes Because of any health problems, do you need the help of another person with your personal care needs such as eating, bathing, dressing or getting around the house?: No Can you handle your own money without help?: Yes During the past 4 weeks, how would you rate your health in general?: good During the past 4 weeks how have things been going for you?: pretty well Are you having difficulties driving your car?: no Do you always fasten your seat belt when you are in a car?: yes, usually During past 4 weeks, have you been bothered by the following: never: Falling or dizzy when standing up, Sexual problems?, Trouble eating well?, Teeth or denture problems?, Problems using the telephone? and Tiredness or fatigue? Have you fallen 2 or more times in the past year?: No Are you afraid of falling?: Yes Are you a smoker?: no During the past 4 weeks, how many drinks of wine, beer, or other alcoholic beverages did you have?: 2-5 drinks per week Do you exercise for about 20 minutes 3 or more times a week?: yes, some of the time Have you been given information to help with the following?: yes: Keeping track of your medications? and no: Hazards in your house that might hurt you? How often do you have trouble taking medicines the way you have been told to take them?: I always take medicine as prescribed How confident are you that you can control & manage most of your health problems?: very confident What is your race?: or origin or descent PHQ-9 Over the last 2 weeks, how often have you been bothered by any of the following problems? 1. Little interest or pleasure in doing things: not at all 2. Feeling down, depressed, or hopeless: not at all 3. Trouble falling or staying asleep, or sleeping too much: not at all 4. Feeling tired or having little energy: not at all 5. Poor appetite or overeating: not at all 6. Feeling bad about yourself - or that you are a failure or have let yourself or your family down: not at all 7. Trouble concentrating on things, such as reading the newspaper or watching television: not at all 8. Moving or speaking so slowly that other people could have noticed. Or the opposite - being so fidgety or restless that you have been moving around a lot more than usual: not at all 9. Thoughts that you would be better off or of hurting yourself in some way: not at all Total score: 0 Depression Screening Interpretation: Negative Depression Screening Done: Yes 17995 - PHQ-9 Billing: Yes Source: Developed by Drs. Joe Rosenbaum, Eva Waggoner, Devyn Wright and colleagues, with an educational dieter from [facility]. Review of Systems Const Denies poor appetite and Denies weakness Eyes Denies no additional complaints ENT Reports Normal hearing present, Denies dizziness, Denies nasal congestion, Denies tinnitus and Denies sore throat Card Denies chest pain, Denies syncope, Denies rapid heart rate and Denies dyspnea Resp Denies cough and Denies dyspnea GI Denies change in stool character, Reports constipation, Denies diarrhea, Denies nausea and Denies vomiting Denies dysuria and Denies urinary frequency Neuro Reports Normal hearing present, Denies confusion, Denies dizziness, Denies syncope and Denies weakness Psych Denies confusion Physical Exam Vital Signs: Last Vital Signs Pulse 68 02/04/24 10:55 BP 130/72 02/04/24 10:55 Pulse Ox 97 02/04/24 10:55 Oxygen Delivery Method Room Air 02/04/24 10:55 BMI result Body Mass Index 31.0 Const General: No confusion Orientation/consciousness: No confusion HEENT Head: Yes normocephalic Ears: external ears normal and TM's normal bilaterally Face and sinus: Yes normal facial exam Mouth: moist mucous membranes Throat: Yes tonsils normal Eyes Conjunctivae: conjunctivae normal Pupils: Equal, round and reactive pupils present and Pupil accommodation reflex normal Direct Ophthalmoscopy: normal light reflex Neck Neck: No lymphadenopathy Thyroid: Thyroid normal Chest Chest palpation & inspection: normal inspection of the chest Resp Effort & Inspection: normal respiratory effort and no audible wheezes Auscultation: clear to auscultation bilaterally, no crackles, no wheezes and lung sounds not diminished Cardio Rate: regular rate Rhythm: regular rhythm Peripheral pulses: radial pulses present and dorsalis pedis present GI Other: guaiac negative prostate n Palpation (GI): no masses Auscultation: normal bowel sounds and normoactive bowel sounds Rectal Exam - Male: Yes deferred Male General Exam: Yes normal external exam Skin General skin exam: no rashes or lesions noted Rashes: no rashes Neuro General: No confusion Cranial nerves: Yes Equal, round and reactive pupils present and Yes Normal hearing present Cognition (Neuro): normal cognition Gait exam (Neuro): Normal gait present Motor exam (neuro): 5/5 motor strength present throughout Deep tendon reflexes (DTR's): Right brachioradialis reflex intensity grade: 2+, Left brachioradialis reflex intensity grade: 2+, Right patellar reflex intensity grade: 2+ and Left patellar reflex intensity grade: 2+ Extrem General: No edema Office Procedures Flu Questionnaire Does the patient have a severe egg allergy?: No Does the patient have severe life threatening allergies?: No Does the patient have a fever or illness today?: No Has the patient ever had Guillain-[place] Syndrome?: No Has the patient ever had any past reaction to a flu shot?: No Immunizations Fluarix Triv [id number] (PF) 45 mcg (15 mcg x 3)/0.5 mL IM syringe Performing Provider: Demetri Salazar MD [facility] Administered by: ROMELIA Velasco on 02/04/24 12:10 Dose Route Admin Location Dispensed Lot Number Expiration Date [facility] Production Line Manager 0.5 mL IM Left Deltoid 0.5 mL [id number] 10/17/24 [id number] Startpack VIS Given Date VIS Provided VIS Publication Date 02/04/24 Single Vaccine 20 Eligibility Eligibility Date Funding Source Not [facility] Eligible 02/04/24 Private Assessment & Plan Assessment & Plan (1) Medicare annual wellness visit, subsequent: Code(s): Z00.00 - Encounter for general adult medical examination without abnormal findings Plan: Patient is advised to eat healthy, keep well hydrated, keep active and have adequate sleep. (2) Persistent atrial fibrillation: Code(s): I48.19 - Other persistent atrial fibrillation Plan: Continue with anticoagulation with Eliquis. (3) Obesity (BMI 30-39.9): Code(s): E66.9 - Obesity, unspecified Plan: Diet and exercise (4) Hypercholesterolemia: Code(s): E78.00 - Pure hypercholesterolemia, unspecified Plan: Avoid fried foods, chicken skin, eggs, butter margarine, pastries and meat. Be it pork or beef they have a lot of cholesterol LDL goal of less than 130 and triglyceride of less than 150 (5) GERD (gastroesophageal reflux disease): Code(s): K21.9 - Gastro-esophageal reflux disease without esophagitis Qualifiers: Esophagitis presence: without esophagitis Qualified Code(s): K21.9 - Gastro-esophageal reflux disease without esophagitis Plan: Avoid the foods that causes that usually spicy foods, tomato products, juices, coffee, soda and foods that your sensitive to. After eating do not lie down, allow 3-4 hours before in lie down. And keep the head of bed above 30 degrees to avoid the acid from going up. (6) Osteoarthritis: Code(s): M19.90 - Unspecified osteoarthritis, unspecified site Qualifiers: Osteoarthritis location: multiple joints Osteoarthritis type: primary Qualified Code(s): M89.49 - Other hypertrophic osteoarthropathy, multiple sites Plan: Patient has gone to arthritis treatment center and had injections of the left shoulder. (7) Impaired glucose tolerance: Code(s): R73.02 - Impaired glucose tolerance (oral) Plan: Decrease the amount of carbohydrate intake, pasta, bread, rice and potatoes are all sugar and that is aside from all the sweet stuff, remember that fruits are good but they are Sweet also. (8) Essential hypertension: Code(s): I10 - Essential (primary) hypertension Plan: Continue with blood pressure medication. Decrease salt intake and exercise on hydralazine 10 mg twice a day 40 mg of lisinopril and spironolactone 50 mg once a day and metoprolol 100 mg once a day (9) BPH (benign prostatic hyperplasia): Code(s): N40.0 - Benign prostatic hyperplasia without lower urinary tract symptoms Qualifiers: Lower urinary tract symptom detail: urinary frequency Lower urinary tract symptom presence: symptoms present Qualified Code(s): N40.1 - Benign prostatic hyperplasia with lower urinary tract symptoms; R35.0 - Frequency of micturition Plan: Continue with finasteride (10) Hearing difficulty: Code(s): H91.90 - Unspecified hearing loss, unspecified ear Qualifiers: Laterality: bilateral Qualified Code(s): H91.93 - Unspecified hearing loss, bilateral Plan: Patient is being sent for hearing test Orders: Orders Influenza [id number] Immunization Today Z23 - Encounter for immunization Referrals Speech and Hearing Referral H91.90 - Unspecified hearing loss, unspecified ear Quality Reporting (2019) Depression/Bipolar (159/160/161/177) PHQ-9: Total score: 0 Coding Level of Care Code Medicare Subsequent (G0439) Diagnoses Medicare annual wellness visit, subsequent Z00.00 Persistent atrial fibrillation I48.19 Obesity (BMI 30-39.9) E66.9 Hypercholesterolemia E78.00 Gastroesophageal reflux disease without esophagitis K21.9 Esophagitis presence: without esophagitis Primary osteoarthritis involving multiple joints M89.49 Osteoarthritis location: multiple joints Osteoarthritis type: primary Impaired glucose tolerance R73.02 Essential hypertension I10 Benign prostatic hyperplasia with urinary frequency N40.1; R35.0 Lower urinary tract symptom detail: urinary frequency Lower urinary tract symptom presence: symptoms present Hearing difficulty of both ears H91.93 Laterality: bilateral
== END 2024-02-04 12:14 | disposition home or self-care (01) ==
PROVIDERS: PCP Internal Medicine; Visit Provider Internal Medicine
DX: K21.9 Gastro-esophageal reflux disease without esophagitis (principal); I48.19 Other persistent atrial fibrillation; Z68.30 Body mass index [BMI] 30.0-30.9, adult; E66.811 Obesity, class 1; E78.00 Pure hypercholesterolemia, unspecified; M89.49 Other hypertrophic osteoarthropathy, multiple sites; R73.02 Impaired glucose tolerance (oral); I10 Essential (primary) hypertension; N40.1 Benign prostatic hyperplasia with lower urinary tract symptoms; R35.0 Frequency of micturition; H91.93 Unspecified hearing loss, bilateral

== ENCOUNTER → 2024-02-04 10:44 | Outpatient (BNVA) | payer BC, MEDICARE, SELFPAY | PROVIDERS: PCP Internal Medicine; Visit Provider Internal Medicine | DX: Z00.01 Encounter for general adult medical examination with abnormal findings (principal); I48.19 Other persistent atrial fibrillation; E66.9 Obesity, unspecified; E78.00 Pure hypercholesterolemia, unspecified; K21.9 Gastro-esophageal reflux disease without esophagitis; Z23 Encounter for immunization; M89.49 Other hypertrophic osteoarthropathy, multiple sites; R73.02 Impaired glucose tolerance (oral); I10 Essential (primary) hypertension; N40.1 Benign prostatic hyperplasia with lower urinary tract symptoms; R35.0 Frequency of micturition; H91.93 Unspecified hearing loss, bilateral; Z79.01 Long term (current) use of anticoagulants; Z79.899 Other long term (current) drug therapy | CPT/HCPCS: 90471; 90656; 96127 ==

== ENCOUNTER 2024-02-08 08:23 | Outpatient (AMB) | payer BC, MEDICARE, SELFPAY ==
[2024-02-08 08:34] VITALS: BP 146/72; PULSE 72; BMI 31.3
--- NOTE | 2024-02-08 08:34 | A.OFFVIS_ITS ---
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 Required: No Accompanied by: Self / Same As Patient Allergies amlodipine Adverse Reaction (Intermediate, Verified 02/04/24 10:56) leg swelling Environmental Allergy (Mild, Uncoded 02/04/24 10:56) ITCHY EYES pollen Allergy (Mild, Uncoded 02/04/24 10:56) Itchy Eyes RAGWEED Allergy (Mild, Uncoded 02/04/24 10:56) STUFFY NOSE WATERY EYES weed Allergy (Mild, Uncoded 02/04/24 10:56) Itchy Eyes Medication List - Last Reconciled 02/08/24 by Adin Suarez MD allopurinol 100 mg PO DAILY apixaban (Eliquis) 5 mg PO BID blood pressure monitor (Blood Pressure Kit) As directed finasteride 5 mg PO DAILY 90 days hydralazine 10 mg PO BID 90 days hydrocortisone-acetic acid 1-2 % 4 drps otic (ears) TID lisinopril 40 mg PO DAILY metoprolol succinate ER 100 mg PO DAILY 90 days spironolactone 50 mg PO DAILY HPI Comments Details: Tracy returns for follow-up regarding atrial fibrillation and hypertension. According to him, no issues. No complaints like chest pain or shortness of breath or palpitations or presyncope or syncope. No issues with medications either. Doing well overall. [facility] Medical History (Updated 02/04/24 @ 18:48 by Demetri Salazar MD) Vitamin B12 deficiency Anemia Vitamin B12 deficiency Otitis externa Adult general medical exam Eye exam, routine Screening for diabetes mellitus Testicle swelling Pulmonary hypertension Persistent atrial fibrillation Leg edema History of rib fracture Gout Obesity (BMI 30-39.9) BPH (benign prostatic hyperplasia) Osteoarthritis Chronic prostatitis Cervical radiculopathy due to degenerative joint disease of spine GERD (gastroesophageal reflux disease) Vitamin D deficiency Hypercholesterolemia Surgical History History of colonoscopy History of prostate biopsy History of inguinal hernia repair Family History Father CVD (cardiovascular disease) Mother CVD (cardiovascular disease) Diabetes Sister No problems noted. Son No problems noted. Daughter No problems noted. Social History Household Members: None Housing: Other (Staying with son) Do you presently have visiting nurse or other home services: No Alcohol intake: current Alcohol intake frequency: a few times a week Alcohol type: beer Comment: REPORT GIVEN BY MARIA ESTHER PALAFOX RN weekend mix drinks x2 Patient Tobacco Use Status: Never used Tobacco e-Cigarette/Vaping Use: Never Used Second Hand Smoke Exposure: No service: No Current occupational status: employed Cognitive needs: No Hearing needs: No Vision needs: Yes Review of Systems Const Denies chills, Denies fatigue, Denies fever(s), Denies weight gain and Denies weight loss ENT Denies dizziness Card Denies chest pain, Denies leg edema, Denies lightheadedness, Denies palpitations, Denies dyspnea on exertion, Denies orthopnea and Denies other Resp Denies cough and Denies dyspnea on exertion GI Denies hematochezia and Denies change in stool character Musc Denies abnormal gait, Denies muscle weakness, Denies numbness, Denies radiating pain into limb and Denies tingling Neuro Denies abnormal gait, Denies dizziness, Denies numbness and Denies tingling Endo Denies fatigue and Denies palpitations Physical Exam Vital Signs: Last Vital Signs Pulse 72 02/08/24 08:34 BP 146/72 H 02/08/24 08:34 BMI result Body Mass Index 31.3 Const General: comfortable and no acute distress Orientation/consciousness: patient oriented x3 HEENT Other: Unremarkable Head: Yes normal to inspection Neck Neck: Yes normal visual inspection Chest Chest palpation & inspection: normal inspection of the chest Resp Auscultation: clear to auscultation bilaterally Cardio Palpation: normal PMI Heart sounds: S1 normal heart sound present, S2 normal heart sound present, no gallops, no murmurs and no rubs GI Palpation (GI): Soft to palpation Back/Spine/Pelvis Other: unremarkable Skin General skin exam: no rashes or lesions noted Neuro General: patient oriented x3 Extrem General: Yes normal to inspection Psych Mental Status: mental status grossly normal Office Procedures EKG Details: EKG with atrial fibrillation, 72/Min, cannot exclude old septal infarc. [id number], Complete Assessment & Plan Assessment & Plan (1) Persistent atrial fibrillation: Code(s): I48.19 - Other persistent atrial fibrillation Category: Medical Plan: Controlled. On metoprolol/Eliquis. (2) Essential hypertension: Code(s): I10 - Essential (primary) hypertension Category: Medical Plan: Stable. On lisinopril, hydralazine, spironolactone. (3) Non-rheumatic mitral regurgitation: Code(s): I34.0 - Nonrheumatic mitral (valve) insufficiency Category: Medical Plan: Last echocardiogram shows [id number] mitral regurgitation. Not hemodynamically significant. As clinically indicated, can repeat echocardiogram. (4) Pulmonary hypertension: Code(s): I27.20 - Pulmonary hypertension, unspecified Category: Medical Plan: Last echocardiogram had mild pulmonary hypertension. Probably all from atrial fibrillation as well as left heart diastolic dysfunction. No specific management. Coding Level of Care Code Est Pt Level 4 (64967) Diagnoses Persistent atrial fibrillation I48.19 Essential hypertension I10 Non-rheumatic mitral regurgitation I34.0 Pulmonary hypertension I27.20 CPT Codes EKG - CPT: 86523-[id number], Complete ([id number])
== END 2024-02-08 08:51 | disposition home or self-care (01) ==
PROVIDERS: PCP Internal Medicine; Visit Provider Internal Medicine
DX: I48.19 Other persistent atrial fibrillation (principal); I10 Essential (primary) hypertension; I34.0 Nonrheumatic mitral (valve) insufficiency; I27.20 Pulmonary hypertension, unspecified
CPT/HCPCS: 93010; 99214

== ENCOUNTER → 2024-02-08 08:23 | Outpatient (BNVA) | payer BC, MEDICARE, SELFPAY | PROVIDERS: PCP Internal Medicine; Visit Provider Internal Medicine | DX: I48.19 Other persistent atrial fibrillation (principal); I10 Essential (primary) hypertension; I34.0 Nonrheumatic mitral (valve) insufficiency; I27.20 Pulmonary hypertension, unspecified; Z79.01 Long term (current) use of anticoagulants; Z79.899 Other long term (current) drug therapy | CPT/HCPCS: 93005 ==

== ENCOUNTER 2024-02-11 08:58 | Outpatient (AMB) | payer MEDICARE, BC, SELFPAY ==
--- NOTE | 2024-02-11 09:03 | MHC.OFFVIS ---
Intake Visit Reasons: 1y/PSA(SET) Intake Note: Patient is present for PSA Follow up Urology Med: Finasteride Antibiotic Allergy: None Blood Thinner: Eliquis Recent PSA: 01/30/2024 PSA: 3.13 Last PVR:0ml Accompanied by: Self / Same As Patient Allergies amlodipine Adverse Reaction (Intermediate, Verified 02/11/24 09:05) leg swelling Environmental Allergy (Mild, Uncoded 02/11/24 09:05) ITCHY EYES pollen Allergy (Mild, Uncoded 02/11/24 09:05) Itchy Eyes RAGWEED Allergy (Mild, Uncoded 02/11/24 09:05) STUFFY NOSE WATERY EYES weed Allergy (Mild, Uncoded 02/11/24 09:05) Itchy Eyes HPI Comments Details: Heroindo a pleasant male. He is seen for the following urologic conditions - lower urinary tract symptoms - elevated PSA Yearly review Continue good response to finasteride Lab work reviewed Finasteride Thursday with slight rise but within limits Lower Urinary Tract Baseline mild LUTS Predominantly obstructive Combination nocturia with mild weakness of stream MRI 2019 50 g prostate Current therapy finasteride Elevated PSA Longstanding Baseline PSA running between 7-9 historically - had been in the 2-3 range since 2018 Prostate biopsies 2012 NAD, 2018 NAD Laboratory investigations - 07/08 2.3, 01/08 5.4, 08/09 1.3, 02/08 1.2, 02/09 1.2, 02/10 3.1 Imaging - 01/08 MRI 50 g prostate, question of PI-RADS 3 lesion. No definitive highly suspicious lesion PFSH Medical History Vitamin B12 deficiency Anemia Vitamin B12 deficiency Otitis externa Adult general medical exam Eye exam, routine Screening for diabetes mellitus Testicle swelling Pulmonary hypertension Persistent atrial fibrillation Leg edema History of rib fracture Gout Obesity (BMI 30-39.9) BPH (benign prostatic hyperplasia) Osteoarthritis Chronic prostatitis Cervical radiculopathy due to degenerative joint disease of spine GERD (gastroesophageal reflux disease) Vitamin D deficiency Hypercholesterolemia Surgical History History of colonoscopy History of prostate biopsy History of inguinal hernia repair Family History Father CVD (cardiovascular disease) Mother CVD (cardiovascular disease) Diabetes Sister No problems noted. Son No problems noted. Daughter No problems noted. Social History Household Members: None Housing: Other (Staying with son) Do you presently have visiting nurse or other home services: No Alcohol intake: current Alcohol intake frequency: a few times a week Alcohol type: beer Comment: REPORT GIVEN BY MARIA ESTHER PALAFOX RN weekend mix drinks x2 Patient Tobacco Use Status: Never used Tobacco e-Cigarette/Vaping Use: Never Used Second Hand Smoke Exposure: No service: No Current occupational status: employed Cognitive needs: No Hearing needs: No Vision needs: Yes Review of Systems Const Denies chills and Denies fever(s) Card Reports no additional complaints and Denies syncope Resp Denies cough GI Denies abdominal pain and Denies heartburn Reports as per HPI and Denies change in libido Neuro Denies syncope Psych Denies change in libido Endo Denies change in libido Physical Exam Const General: cooperative, healthy appearing, comfortable and no acute distress Orientation/consciousness: patient oriented x3 HEENT Face and sinus: Yes normal facial exam Mouth: moist mucous membranes Neck Neck: Yes normal visual inspection, Yes full ROM and Yes trachea midline Chest Chest palpation & inspection: normal inspection of the chest Resp Effort & Inspection: normal respiratory effort, able to speak in complete sentences and no respiratory distress GI Inspection: Yes normal to inspection Back/Spine/Pelvis Cervical Spine: normal cervical lordosis Thoracic/Lumbar Spine: thoracic and lumbar spine normal to inspection Skin General skin exam: no rashes or lesions noted Neuro General: patient oriented x3, gait normal, tone normal and moves all extremities Extrem General: Yes normal to inspection and Yes capillary refill normal Assessment & Plan Assessment & Plan (1) Elevated PSA: Code(s): R97.20 - Elevated prostate specific antigen [PSA] Category: Medical (2) BPH (benign prostatic hyperplasia): Code(s): N40.0 - Benign prostatic hyperplasia without lower urinary tract symptoms Category: Medical Qualifiers: Lower urinary tract symptom presence: symptoms present Lower urinary tract symptom detail: urinary frequency Qualified Code(s): N40.1 - Benign prostatic hyperplasia with lower urinary tract symptoms; R35.0 - Frequency of micturition Plan Twelve month follow-up PSA and PVR Orders: Orders Prostate Specific Antigen 364 Days R97.20 - Elevated prostate specific antigen [PSA] Patient Instructions: Imaging studies, laboratory and physical exam results were discussed and reviewed in detail. No major barriers to patient understanding were identified. An opportunity to ask questions regarding the treatment plan was provided. All questions were answered. The patient expressed understanding and agreement with the above treatment plan. The patient is aware they should contact our office by phone for worsening of their current condition or the appearance of new urologic symptoms. Compliance is encouraged with any medications and followup testing that is ordered. It is a privilege to participate in the urologic care of your patient. If you have any questions or concerns regarding treatment for the above conditions, or other urologic issues, please do not hesitate to contact me. The office telephone contact is [phone]. This note is constructed using voice recognition software. While every effort has been made to ensure accuracy mental health assistant errors may have been included. Yours sincerely, Dr Dom Ortiz MD, [facility] - Urology Providers of Expert, Compassionate Care for the Genitourinary System Coding Level of Care Code Est Pt Level 4 (24908) Diagnoses Elevated PSA R97.20 Benign prostatic hyperplasia with urinary frequency N40.1; R35.0 Lower urinary tract symptom presence: symptoms present Lower urinary tract symptom detail: urinary frequency
== END 2024-02-11 09:26 | disposition home or self-care (01) ==
PROVIDERS: PCP Internal Medicine; Visit Provider Urology
DX: R97.20 Elevated prostate specific antigen [PSA] (principal); N40.1 Benign prostatic hyperplasia with lower urinary tract symptoms; R35.0 Frequency of micturition
CPT/HCPCS: 99214

== ENCOUNTER → 2024-02-11 08:58 | Outpatient (BNVA) | payer MEDICARE, BC, SELFPAY | PROVIDERS: PCP Internal Medicine; Visit Provider Urology | DX: N40.1 Benign prostatic hyperplasia with lower urinary tract symptoms (principal); R35.0 Frequency of micturition; R35.1 Nocturia; R39.12 Poor urinary stream; R97.20 Elevated prostate specific antigen [PSA]; Z79.899 Other long term (current) drug therapy | CPT/HCPCS: 99212 ==

== ENCOUNTER 2024-08-04 08:08 | Outpatient (AMB) | payer BC, MEDICARE, SELFPAY ==
[2024-08-04 08:25] VITALS: BP 122/70; PULSE 58; O2SAT 97; BMI 29.8
--- NOTE | 2024-08-04 08:25 | A.OFFPC_ITS ---
Vital Signs 08/04/24 08:25 Height 5 ft 7 in Weight 190 lb BMI 29.8 BP 122/70 Blood Pressure Location Lt brachial Position Sitting Pulse 58 Pulse Source Pulse Oximeter Pulse Oximetry (%) 97 Oxygen Delivery Method Room Air Intake Visit Reasons: Hypertension Allergies amlodipine Adverse Reaction (Intermediate, Verified 08/04/24 08:26) leg swelling Environmental Allergy (Mild, Uncoded 08/04/24 08:26) ITCHY EYES pollen Allergy (Mild, Uncoded 08/04/24 08:26) Itchy Eyes RAGWEED Allergy (Mild, Uncoded 08/04/24 08:26) STUFFY NOSE WATERY EYES weed Allergy (Mild, Uncoded 08/04/24 08:26) Itchy Eyes Tobacco use date assessed: 08/04/24 Fall risk assessment: No Falls in past year Last assessed Fall Risk: 08/04/24 Dental Screening Dental Screen Date: 08/04/24 Did you have a dental visit in the last 12 months?: No Did you have a dental problem in the last 6 months where you did not have access to dental care?: No Was dental information given to patient?: Patient has dentist [facility] Medical History (Updated 08/04/24 @ 08:33 by Demetri Salazar MD) Vitamin B12 deficiency Vitamin B12 deficiency Anemia Otitis externa Adult general medical exam Eye exam, routine Screening for diabetes mellitus Testicle swelling Pulmonary hypertension Persistent atrial fibrillation Leg edema History of rib fracture Gout Obesity (BMI 30-39.9) BPH (benign prostatic hyperplasia) Osteoarthritis Chronic prostatitis Cervical radiculopathy due to degenerative joint disease of spine GERD (gastroesophageal reflux disease) Vitamin D deficiency Hypercholesterolemia Surgical History History of colonoscopy History of prostate biopsy History of inguinal hernia repair Family History Father CVD (cardiovascular disease) Mother CVD (cardiovascular disease) Diabetes Sister No problems noted. Son No problems noted. Daughter No problems noted. Social History Household Members: None Housing: Other (Staying with son) Do you presently have visiting nurse or other home services: No Alcohol intake: current Alcohol intake frequency: a few times a week Alcohol type: beer Comment: REPORT GIVEN BY MARIA ESTHER PALAFOX RN weekend mix drinks x2 Patient Tobacco Use Status: Never used Tobacco Tobacco use type: Cigarette e-Cigarette/Vaping Use: Never Used Second Hand Smoke Exposure: No service: No Current occupational status: employed Cognitive needs: No Hearing needs: No Vision needs: Yes Questionnaire Thrive Questionnaire Date Thrive assessed: 08/04/24 I am a: Patient What is your living situation today?: I have a steady place to live Within the past 12 months, did the food you bought not last and you didn't have the money to get more?: Never true Within the past 12 months, did you worry whether your food would run out before you got money to buy more?: Never true Do you have trouble paying for medicines?: No Do you have trouble getting transportation to medical appointments?: No Do you have trouble paying your heating and electricity bill?: No Do you have trouble taking care of your child, family member or friend?: No Do you have trouble with day-to-day activities such as bathing, preparing meals, shopping, managing finances, etc.?: No Are you currently unemployed and looking for a job?: No Are you interested in more education?: No Currently or been in a relationship where the following occur: No concerns reported THRIVE Score: 0 AUDIT C Alcohol Use Questionnaire (AUDIT-C) 1. How often do you have a drink containing alcohol?: Never 2. How many drinks containing alcohol do you have on a typical day when you are drinking?: 1 or 2 3. How often do you have six or more drinks on one occasion?: Never Total Score: 0 Score Reviewed/Action Taken: No SHRUTI-7 AMB Questionnaire SHRUTI-7 Date SHRUTI - 7 assessed: 08/04/24 Feeling nervous, anxious, or on edge: 0 = Not at all Not being able to stop or control worryin = Not at all Worrying too much about different things: 0 = Not at all Trouble relaxin = Not at all Being so restless that it is hard to sit still: 0 = Not at all Becoming easily annoyed or irritable: 0 = Not at all Feeling afraid as if something awful might happen: 0 = Not at all Total SHRUTI-7 score (0-4 normal; 5-9 mild; 10-14 moderate; 15-21 severe): 0 Source: Developed by Drs. Joe Rosenbaum, Eva Waggoner, Devyn Wright and colleagues, with an educational dieter from [employer] Physical exam (Primary Care) Vital Signs: Last Vital Signs Pulse 58 08/04/24 08:25 BP 122/70 08/04/24 08:25 Pulse Ox 97 08/04/24 08:25 Oxygen Delivery Method Room Air 08/04/24 08:25 BMI result Body Mass Index 29.8 Tobacco/Smoking Status: Tobacco use Status Tobacco use date assessed 08/04/24 08/04/24 08:32 Patient Tobacco Use Status Never used Tobacco 08/04/24 08:32 Tobacco use type Cigarette 08/04/24 08:32 e-Cigarette/Vaping Use Never Used 08/04/24 08:32 Thrive Assessment: Date of Thrive Assessment Date Thrive assessed 08/04/24 08/04/24 08:32 Currently or been in a relationship where the following occur: No concerns reported Const General: alert; No acute distress Eyes Conjunctivae: conjunctivae normal Resp Auscultation: clear to auscultation bilaterally Cardio Rate: regular rate Rhythm: regular rhythm GI Inspection: Yes normal to inspection Extrem General: Yes normal to inspection and No edema Coding Level of Care Code Est Pt Level 4 (03968) Diagnoses Primary osteoarthritis, left shoulder M19.012 Persistent atrial fibrillation I48.19 Obesity (BMI 30-39.9) E66.9 Hypercholesterolemia E78.00 Essential hypertension I10 Benign prostatic hyperplasia with urinary frequency N40.1; R35.0 Lower urinary tract symptom detail: urinary frequency Lower urinary tract symptom presence: symptoms present Gastroesophageal reflux disease without esophagitis K21.9 Esophagitis presence: without esophagitis Impaired glucose tolerance R73.02 Vitamin B12 deficiency E53.8 Assessment & Plan Assessment & Plan (1) Primary osteoarthritis, left shoulder: Code(s): M19.012 - Primary osteoarthritis, left shoulder Category: Medical Plan: Patient has seen Rheumatology and has had injections last year (2) Persistent atrial fibrillation: Code(s): I48.19 - Other persistent atrial fibrillation Category: Medical Plan: Continue with anticoagulation with Eliquis with last blood work in January (3) Obesity (BMI 30-39.9): Code(s): E66.9 - Obesity, unspecified Category: Medical Plan: Diet and exercise (4) Hypercholesterolemia: Code(s): E78.00 - Pure hypercholesterolemia, unspecified Category: Medical Plan: Avoid fried foods, chicken skin, eggs, butter margarine, pastries and meat. Be it pork or beef they have a lot of cholesterol LDL goal of less than 130 and triglyceride of less than 150. Diet controlled (5) Essential hypertension: Code(s): I10 - Essential (primary) hypertension Category: Medical Plan: Continue with blood pressure medication. Decrease salt intake and exercise continuing with lisinopril 40 mg once a day metoprolol 100 mg once a day spironolactone 50 mg once a day hydralazine 10 mg twice a day (6) BPH (benign prostatic hyperplasia): Code(s): N40.0 - Benign prostatic hyperplasia without lower urinary tract symptoms Category: Medical Qualifiers: Lower urinary tract symptom detail: urinary frequency Lower urinary tract symptom presence: symptoms present Qualified Code(s): N40.1 - Benign pro static hyperplasia with lower urinary tract symptoms; R35.0 - Frequency of micturition Plan: Continue with finasteride 5 mg once a day and follows up with urology (7) GERD (gastroesophageal reflux disease): Code(s): K21.9 - Gastro-esophageal reflux disease without esophagitis Category: Medical Qualifiers: Esophagitis presence: without esophagitis Qualified Code(s): K21.9 - Gastro-esophageal reflux disease without esophagitis Plan: Avoid the foods that causes that usually spicy foods, tomato products, juices, coffee, soda and foods that your sensitive to. After eating do not lie down, allow 3-4 hours before in lie down. And keep the head of bed above 30 degrees to avoid the acid from going up. (8) Impaired glucose tolerance: Code(s): R73.02 - Impaired glucose tolerance (oral) Category: Medical Plan: Decrease the amount of carbohydrate intake, pasta, bread, rice and potatoes are all sugar and that is aside from all the sweet stuff, remember that fruits are good but they are Sweet also. (9) Vitamin B12 deficiency: Code(s): E53.8 - Deficiency of other specified B group vitamins Category: Medical Plan: Noted some microcytosis and advised to take vitamin B12 5986-4036 units once a day Plan History of Present Illness The patient is an 78-year-old male presenting with a need for a routine follow- up and wellness evaluation. He has chronic conditions including atrial fibrillation, essential hypertension, hyperlipidemia, gastroesophageal reflux disease (GERD), and benign prostatic hyperplasia (BPH). He is currently anticoagulated with Eliquis and reports stable blood pressure management under the regimen of lisinopril, metoprolol, spironolactone, and hydralazine. He maintains diet-controlled impaired glucose tolerance and reports that his LDL cholesterol is managed at 110 mg/dL. In 2020, a colonoscopy identified a tubular adenoma, and the patient continues under surveillance, although specific details were not discussed. He experiences mild obstructive symptoms associated with BPH, managed with finasteride. January blood work indicated macrocytosis and low-normal vitamin B12, addressed by a suggested daily supplement intake of vitamin B12 between 1000 to 2000 units. Arthritis, impacting the left shoulder, is managed with evaluation and treatment, including corticosteroid injections, indicating recent improvement. Auditory concerns are being addressed with a pending hearing test. Health Maintenance - Blood pressure management with lisinopril 40 mg daily, metoprolol 100 mg daily, spironolactone 50 mg daily, and hydralazine 10 mg twice daily. - Anticoagulation therapy with Eliquis for atrial fibrillation. - Hyperlipidemia managed with a target LDL goal of less than 130 mg/dL, and trig lycerides less than 150 mg/dL. - Surveillance for benign prostatic hyperplasia with finasteride. - Recommendation for vitamin B12 supplementation, 1000 to 2000 units daily, due to low-normal levels. - Past colonoscopy in 2020 with findings of tubular adenoma. - Lifestyle recommendations including diet control for glucose tolerance. Social History - Lives with his son. - Reports good vision and auditory health pending a hearing test. - Engages in regular physical activity, maintaining active status. Review of Systems - Cardiovascular: Reports atrial fibrillation, denies chest pain. - Musculoskeletal: Reports arthritis in the left shoulder, denies recent injuries or accidents. - Gastrointestinal: Denies constipation, reports previous colonoscopy with tubular adenoma. - Genitourinary: Denies current urinary obstructive symptoms, managed with finasteride. - Neurological: Denies new or worsening neurological symptoms. - Hematological: Denies any episodes of unusual bleeding or bruising. - Metabolic/Endocrine: Reports controlled impaired glucose tolerance. Physical Exam - Cardiovascular- Heart sounds consistent with atrial fibrillation. Results - Labs: LDL cholesterol at 110 mg/dL; elevated iron level at 350 mcg/dL; low- normal B12 level; normal renal and liver function tests; microcytic blood profile. - Procedures: Last colonoscopy in 2020 showing tubular adenoma. Plan We will continue anticoagulation therapy with Eliquis for managing atrial fibrillation and adhere to the current antihypertensive regimen of lisinopril, metoprolol, spironolactone, and hydralazine to manage blood pressure effectively. Attention to lipid control through a stringent LDL target of less than 130 mg/dL is advised, emphasizing the reduction of cardiovascular risk. The patient is advised to maintain the use of finasteride due to stable benign prostatic hyperplasia symptoms. Vitamin supplementation is recommended to address the recorded low levels. Dietary modifications to support impaired glucose tolerance remain essential. Continued surveillance after adenoma discovery is inferred. Arrangements for immediate and follow-up blood work prior to the next visit have been concluded. Hearing concerns are being managed with a scheduled auditory evaluation. Patient was informed and verbally consented to the use of an ambient scribe for clinic note documentation during this visit. Discussion Notes I have reviewed with the patient the management pathways for his multiple chronic conditions, emphasizing the necessity for anticoagulation and vigilant blood pressure control. Diet and lifestyle modifications continue to be crucial for effective glucose management and lipid control. The patient is informed about vitamin B12 supplementation to correct low serum levels and reduce any associated risks. I will coordinate further testing to monitor significant biochemical markers before the next visit. An audiological assessment follow-up has been organized to address his hearing concerns. The patient is informed about the importance of adherence to the current medication regimen and encouraged to be proactive concerning his health, anticipating any symptoms needing medical attention prior to his next follow-up. Patient Instructions - Continue all current medications as prescribed. - Supplement with 1000 to 2000 units of vitamin B12 daily. - Maintain diet and exercise regimen for cholesterol and glucose management. - Get routine blood work as discussed. - Schedule and attend the follow-up hearing test. - Return for further evaluation and routine check-up in six months. - Drink adequate water and stay active. Orders: Orders Complete Blood Count Auto Diff Today I48.19 - Other persistent atrial fibrillation Comprehensive Met. Panel Today I48.19 - Other persistent atrial fibrillation Hemoglobin A1c Today I48.19 - Other persistent atrial fibrillation Comprehensive Met. Panel 6 Months I48.19 - Other persistent atrial fibrillation Free T4 (Free Thyroxine) 6 Months I48.19 - Other persistent atrial fibrillation Thyroid Stimulating Hormone 6 Months I48.19 - Other persistent atrial fibrillation Prostate Specific Antigen Scr 6 Months I48.19 - Other persistent atrial fibrillation Free T4 (Free Thyroxine) Today I48.19 - Other persistent atrial fibrillation Lipid Panel Today E78.00 - Pure hypercholesterolemia, unspecified, I48.19 - Other persistent atrial fibrillation Vitamin B12 and Folate Today I48.19 - Other persistent atrial fibrillation Thyroid Stimulating Hormone Today I48.19 - Other persistent atrial fibrillation Complete Blood Count Auto Diff 6 Months I48.19 - Other persistent atrial fibrillation Hemoglobin A1c 6 Months I48.19 - Other persistent atrial fibrillation Lipid Panel 6 Months E78.00 - Pure hypercholesterolemia, unspecified, I48.19 - Other persistent atrial fibrillation Vitamin B12 and Folate 6 Months I48.19 - Other persistent atrial fibrillation Magnesium 6 Months I48.19 - Other persistent atrial fibrillation
== END 2024-08-04 08:46 | disposition home or self-care (01) ==
LOC: HO.HMCH 08:08
PROVIDERS: PCP Internal Medicine; Visit Provider Internal Medicine
DX: M19.012 Primary osteoarthritis, left shoulder (principal); I48.19 Other persistent atrial fibrillation; E66.9 Obesity, unspecified; Z68.29 Body mass index [BMI] 29.0-29.9, adult; E78.00 Pure hypercholesterolemia, unspecified; I10 Essential (primary) hypertension; N40.1 Benign prostatic hyperplasia with lower urinary tract symptoms; R35.0 Frequency of micturition; K21.9 Gastro-esophageal reflux disease without esophagitis; R73.02 Impaired glucose tolerance (oral); E53.8 Deficiency of other specified B group vitamins

== ENCOUNTER → 2024-08-04 08:08 | Outpatient (BNVA) | payer BC, MEDICARE, SELFPAY | PROVIDERS: PCP Internal Medicine; Visit Provider Internal Medicine ==

== ENCOUNTER 2024-08-05 07:46 | Outpatient (REF) | payer BC, MEDICARE, SELFPAY ==
--- OUTSIDE RECORDS SUMMARY | 2024-08-05 07:48 | XMS_ITS | Patient Health Record ---
Author Organization [facility] Address [address] [place] [id number] Care Team Providers Care Submarine Worker Name Role Phone Po Demetri MORRISON Primary Care Provider Cesar Singh Jr Unavailable [phone] Allergies Allergen (clinical drug ingredient) Drug/Non Drug Allergy documented on EMR Reaction Allergy Type Onset Date Status amlodipine Amlodipine Besylate Unknown Drug Allergy Active Reason For Referral No Information Medications Medication SIG (Take, Route, Frequency, Duration) Notes Start Date End Date Status Lisinopril 40 MG TAKE 1 TABLET BY BENJAMIN TH EVERY DAY Oral for 90 Active Eliquis 5 MG TAKE 1 TABLET BY BENJAMIN TH TWICE A DAY Oral for 90 Active Spironolactone 50 MG TAKE 1 TABLET BY MO UTH EVERY DAY Oral for 90 Active Furosemide 20 MG TAKE 1/2 TABLET BY M OUTH IN THE MORNING FOR 30 DAYS FOR EDEMA AND TAKE 1/2 TABLET ONCE DAILY Oral for 30 Active Vitamin D Active Tylenol PRN Active MiraLax (colon prep) 8.3 ounce ((238) grams mixed with Gatorade or Crystal Light orally begin at 5:00 p.m. the day before the procedure for 1 day 10/03/2020 Active hydrALAZINE HCl 10 MG 1 tablet with food Orally Four times a day for 30 day(s) 10/03/2020 Active Allopurinol 100 MG TAKE 1 TABLET BY BENJAMIN TH EVERY DAY Oral for 90 Active Metoprolol Succinate ER 100 MG TAKE 1 TABLET BY MOUTH EVERY DAY Oral for 90 Active Immunizations Vaccine Route Administration Date Status Comme nts Influenza Unknown 02/01/2020 Administered Social History Tobacco Use: Social History Observation Description Date Details (start date - stop date) Never Smoker NA - NA Tobacco Use/Smoking Question Answer Notes Patient is a nonsmoker Alcohol Screen Question Answer Notes Did you have a drink containing alcohol in the p ast year? No Points 0 Interpretation Negative Problems Problem Type SNOMED Code ICD Code Onset Dates Problem Status W/U Status Risk Notes Problem 112809053 Colon cancer screening (Z12.11) Active confirmed Problem 220498185 nursing home (curre nt) use of anticoagulants (Z79.01) Active confirmed Problem [id number] Encounter for ot her preprocedural examination (Z01.818) Active confirmed Plan Of Treatment Future Test Test Name Order Date COLONOSCOPY 10/03/2020 Insurance Providers Payer Name Payer Address Payer Phone Subscriber Number Group Number Insured Name Patient Relationship to Insured Coverage Start Date Coverage End Date [facility] [address] [facility] [place] [id number] [phone] [id number] GEORGE JOHN Self - patient is the insured Medical (General) History Medical History History ICD Code hypertension Gout Atrial fibrillation BPH with elevated PSA CHF Osteoarthritis Degenerative joint disease Vitamin D deficiency Surgical History Surgery Date(Month/Year) hernia repair - groin 2011
[2024-08-05 10:01] LABS: MANUAL DIFF FLAG NO
[2024-08-05 10:04] LABS: Basophils Percent Auto 0.2 % (0-2); Eosinophils Absolute Auto 0.1 X10*3/uL (0.0-0.4); Eosinophils Percent Auto 1.6 % (0-4); Hematocrit 41.8 % (42.0-52.0); Hemoglobin 14.1 g/dl (14.0-18.0); Imm Gran Abs Auto 0.01 X10*3/uL (0.00-0.03); Imm Gran Pct Auto 0.2 % (0.0-0.4); Lymphocytes Absolute Auto 1.6 X10*3/uL (1.2-4.9); Lymphocytes Percent Auto 31.8 % (20-40); Mean Corpuscular HGB Conc 33.7 g/dl (31.0-36.0); Mean Corpuscular Hemoglobin 33.3 pg (27.0-33.0); Mean Corpuscular Volume 98.8 fL (80.0-98.0); Mean Platelet Volume 10.8 fL (9.4-12.4); Monocytes Absolute Auto 0.5 X10*3/uL (0.1-1.2); Monocytes Percent Auto 10.3 % (2-11); Neutrophils Absolute Auto 2.9 x10*3/uL (2.0-8.3); Neutrophils Percent Auto 55.9 % (45-73); Platelet Count 155 X10*3/uL (160-400); Red Blood Count 4.23 X10*6/uL (4.60-5.80); Red Cell Distribution Width 12.6 % (11.0-16.0); White Blood Count 5.2 X10*3/uL (4.8-10.8)
[2024-08-05 10:13] LABS: Estimated Average Glucose 108 mg/dL; Hemoglobin A1C 134.9573 umol/L; Hemoglobin A1c % 5.4 % (<6.0); Total Hemoglobin (HGBA1C) 3808.9935 umol/L
[2024-08-05 10:43] LABS: Alanine Aminotransferase 18 U/L (0-40); Albumin Level 4.1 g/dL (3.5-5.0); Anion Gap 10 (12-20); Aspartate Amino Transferase 22 U/L (5-37); Bilirubin Total 0.5 mg/dL (0.0-1.0); Blood Urea Nitrogen 20 mg/dL (9-16); Calcium 9.3 mg/dL (8.4-10.2); Carbon Dioxide 28 mmol/L (22-29); Chloride 107 mmol/L (96-108); Cholesterol 178 mg/dL (<200); Estimated Glomerular Filt Rate > 60; Glucose Random 89 mg/dL (60-115); HDL Cholesterol 44 mg/dL (>40); LDL Cholesterol Calculated 103 mg/dL (<100); Potassium 4.2 mmol/L (3.3-5.1); Sodium 141 mmol/L (135-145); Triglycerides 158 mg/dL (<150)
[2024-08-05 10:51] LABS: Folate 13.3 ng/mL (> or = 4.0); Vitamin B12 336 pg/mL (200-900)
[2024-08-05 10:52] LABS: Free T4 (Free Thyroxine) 0.91 ng/dL (0.71-1.85); Thyroid Stimulating Hormone 1.89 uIU/mL (0.32-4.0)
[2024-08-05 19:46] LABS: Alkaline Phosphatase 56 U/L (39-117)
== END 2024-08-05 07:47 | disposition home or self-care (01) ==
LOC: HO.HMGCLDS 07:46
PROVIDERS: PCP Internal Medicine; Visit Provider Internal Medicine
DX: I48.19 Other persistent atrial fibrillation (principal); E78.00 Pure hypercholesterolemia, unspecified; Z13.1 Encounter for screening for diabetes mellitus
CPT/HCPCS: 36415; 80053; 80061; 82607; 82746; 83036; 84439; 84443; 85025

== ENCOUNTER 2024-09-05 07:42 | Outpatient (REF) | payer BC, MEDICARE, SELFPAY ==
--- OUTSIDE RECORDS SUMMARY | 2024-09-05 07:47 | XMS_ITS | Patient Health Record ---
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 Name Role Phone Po Demetri MORRISON Primary Care Provider Cesar Singh Jr Unavailable Allergies Allergen (clinical drug ingredient) Drug/Non Drug [...] Problem Status W/U Status Risk Notes Problem 609811280 Colon cancer screening (Z12.11) Active confirmed Problem [id number] alf (curre nt) use of anticoagulants (Z79.01) Active confirmed Problem [id number] Encounter for ot her preprocedural examination (Z01.818) Active confirmed Plan Of Treatment Future Test Test Name Order Date COLONOSCOPY 10/03/2020 Insurance Providers Payer Name Payer Address Payer Phone Subscriber Number Group Number Insured Name Patient Relationship to Insured Coverage Start Date Coverage End Date [facility] [address] [facility] [place] [phone] [id number] GEORGE JOHN Self - patient is the insured Medical (General) History Medical History History ICD Code hypertension Gout Atrial fibrillation BPH with elevated PSA CHF Osteoarthritis Degenerative joint disease Vitamin D deficiency Surgical History Surgery Date(Month/Year) hernia repair - groin 2011
== END 2024-09-05 07:43 | disposition home or self-care (01) ==
LOC: HO.SH 07:42
PROVIDERS: Visit Provider Internal Medicine
DX: Z01.118 Encounter for examination of ears and hearing with other abnormal findings (principal); H90.3 Sensorineural hearing loss, bilateral
CPT/HCPCS: 92557; 92567

== ENCOUNTER 2025-01-30 09:37 | Outpatient (REF) | payer BC, MEDICARE, SELFPAY ==
[2025-01-30 13:06] LABS: MANUAL DIFF FLAG NO
[2025-01-30 13:13] LABS: Hematocrit 46.9 % (42.0-52.0); Hemoglobin 15.5 g/dl (14.0-18.0); Imm Gran Abs Auto 0.02 X10*3/uL (0.00-0.03); Imm Gran Pct Auto 0.3 % (0.0-0.4); Lymphocytes Absolute Auto 2.0 X10*3/uL (1.2-4.9); Mean Corpuscular HGB Conc 33.0 g/dl (31.0-36.0); Mean Corpuscular Hemoglobin 32.8 pg (27.0-33.0); Mean Corpuscular Volume 99.4 fL (80.0-98.0); NRBC Abs Auto 0.000 X10*3/uL (0.0-0.012); NRBC Pct Auto 0.0 /100WBC (0.0-0.2); Platelet Count 175 X10*3/uL (160-400); Red Blood Count 4.72 X10*6/uL (4.60-5.80); White Blood Count 5.9 X10*3/uL (4.8-10.8)
[2025-01-30 13:36] LABS: Hemoglobin A1C 148.9763 umol/L
[2025-01-30 13:51] LABS: Alanine Aminotransferase 20 U/L (0-40); Albumin Level 4.5 g/dL (3.5-5.0); Alkaline Phosphatase 59 U/L (39-117); Anion Gap 13 (12-20); Aspartate Amino Transferase 27 U/L (5-37); Blood Urea Nitrogen 20 mg/dL (9-16); Calcium 9.5 mg/dL (8.4-10.2); Carbon Dioxide 28 mmol/L (22-29); Chloride 105 mmol/L (96-108); Cholesterol 198 mg/dL (<200); Estimated Glomerular Filt Rate > 60; HDL Cholesterol 56 mg/dL (>40); Magnesium 2.0 mg/dL (1.6-2.6); Potassium 4.6 mmol/L (3.3-5.1); Prostate Specific Antigen 1.67 ng/mL (<0.05-4.0); Sodium 141 mmol/L (135-145); Total Protein 7.3 g/dL (6.5-8.0); Triglycerides 136 mg/dL (<150)
[2025-01-30 13:55] LABS: Free T4 (Free Thyroxine) 0.95 ng/dL (0.71-1.85); Thyroid Stimulating Hormone 1.20 uIU/mL (0.32-4.0)
[2025-01-30 14:05] LABS: Folate 11.0 ng/mL (> or = 4.0); Vitamin B12 252 pg/mL (200-900)
== END 2025-01-30 09:38 | disposition home or self-care (01) ==
LOC: HO.HMGCLDS 09:37
PROVIDERS: Absent Provider Urology; PCP Internal Medicine; Visit Provider Internal Medicine
DX: Z12.5 Encounter for screening for malignant neoplasm of prostate (principal); Z13.1 Encounter for screening for diabetes mellitus; R97.20 Elevated prostate specific antigen [PSA]; I48.19 Other persistent atrial fibrillation; E78.00 Pure hypercholesterolemia, unspecified
CPT/HCPCS: 36415; 80053; 80061; 82607; 82746; 83036; 83540; 83735; 84153; 84439; 84443; 85025

== ENCOUNTER 2025-02-08 07:50 | Outpatient (AMB) | payer BC, MEDICARE, SELFPAY ==
--- OUTSIDE RECORDS SUMMARY | 2025-02-08 07:53 | XMS_ITS | Patient Health Record ---
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 the day before the procedure; Duration: 1 day 10/03/2020 Active hydrALAZINE HCl 10 MG 1 tablet with food Orally Four times a day; Duration: 30 day(s) 10/03/2020 Active Allopurinol 100 MG TAKE 1 TABLET BY BENJAMIN TH EVERY DAY Oral; Duration: 90 Active Metoprolol Succinate ER 100 MG TAKE 1 TABLET BY MOUTH EVERY DAY Oral; Duration: 90 Active Immunizations Vaccine Route Administration Date [...] Problem Status W/U Status Risk Notes Problem Colon cancer screening (048589654) Colon cancer screening (Z12.11) Active confirmed Problem Long-term current use of anticoagulant (983299700) care home (current) use of anticoagulants (Z79.01) Active confirmed Problem Pre-procedure evaluation check (508158720) Encounter for other preprocedural examination (Z01.818) Active confirmed Plan Of Treatment Future Test Test Name Order Date COLONOSCOPY 10/03/2020 Insurance Providers Payer Name Payer Address Payer Phone Subscriber Number Group Number Insured Name Patient Relationship to Insured Coverage Start Date Coverage End Date [facility] [address] [facility] [phone] [id number] GEORGE JOHN Self - patient is the insured Medical (General) History Medical History History ICD Code hypertension Gout Atrial fibrillation BPH with elevated PSA CHF Osteoarthritis Degenerative joint disease Vitamin D deficiency Surgical History Surgery Date(Month/Year) hernia repair - groin 2011
[2025-02-08 08:22] VITALS: BP 120/62; PULSE 62
--- NOTE | 2025-02-08 08:22 | MHC.OFFVIS ---
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 Accompanied by: Self / Same As Patient Allergies amlodipine Adverse Reaction (Intermediate, Verified 02/08/25 08:25) leg swelling Environmental Allergy (Mild, Uncoded 08/04/24 08:26) ITCHY EYES pollen Allergy (Mild, Uncoded 08/04/24 08:26) Itchy Eyes RAGWEED Allergy (Mild, Uncoded 08/04/24 08:26) STUFFY NOSE WATERY EYES weed Allergy (Mild, Uncoded 08/04/24 08:26) Itchy Eyes Medication List - Last Reconciled 02/08/25 by Adin Suarez MD allopurinol 100 mg PO DAILY apixaban (Eliquis) 5 mg PO BID blood pressure monitor (Blood Pressure Kit) As directed finasteride 5 mg PO DAILY 90 days hydralazine 10 mg PO BID 90 days hydrocortisone-acetic acid 1-2 % 4 drps otic (ears) TID lisinopril 40 mg PO DAILY metoprolol succinate ER 100 mg PO DAILY 90 days spironolactone 50 mg PO DAILY HPI Comments Details: Tracy returns for follow-up regarding atrial fibrillation and hypertension. Overall, he states he feels good. No cardiac symptoms. He does not feel any palpitations or in fact anything else of concern. He states he is still working. [facility] Medical History (Updated 08/04/24 @ 08:33 by Demetri Salazar MD) Vitamin B12 deficiency Vitamin B12 deficiency Anemia Otitis externa Adult general medical exam Eye exam, routine Screening for diabetes mellitus Testicle swelling Pulmonary hypertension Persistent atrial fibrillation Leg edema History of rib fracture Gout Obesity (BMI 30-39.9) BPH (benign prostatic hyperplasia) Osteoarthritis Chronic prostatitis Cervical radiculopathy due to degenerative joint disease of spine GERD (gastroesophageal reflux disease) Vitamin D deficiency Hypercholesterolemia Surgical History History of colonoscopy History of prostate biopsy History of inguinal hernia repair Family History Father CVD (cardiovascular disease) Mother CVD (cardiovascular disease) Diabetes Sister No problems noted. Son No problems noted. Daughter No problems noted. Social History Household Members: None Housing: Other (Staying with son) Do you presently have visiting nurse or other home services: No Alcohol intake: current Alcohol intake frequency: a few times a week Alcohol type: beer Comment: REPORT GIVEN BY MARIA ESTHER PALAFOX RN weekend mix drinks x2 Patient Tobacco Use Status: Never used Tobacco Tobacco use type: Cigarette e-Cigarette/Vaping Use: Never Used Second Hand Smoke Exposure: No service: No Current occupational status: employed Cognitive needs: No Hearing needs: No Vision needs: Yes Review of Systems Const Denies daytime sleepiness, Denies difficulty sleeping, Denies snoring, Denies stops breathing during sleep and Denies weakness Card Denies chest pain, Denies rapid heart rate, Denies irregular heart rhythm, Denies claudication, Denies leg edema, Denies lightheadedness, Denies palpitations, Denies dyspnea, Denies dyspnea on exertion, Denies orthopnea, Denies paroxysmal nocturnal dyspnea and Denies slow heart rate Resp Denies cough, Denies dyspnea, Denies dyspnea on exertion and Denies snoring GI Reports no additional complaints, Denies hematochezia, Denies change in stool character and Denies dyspepsia Musc Denies abnormal gait, Denies muscle weakness and Denies numbness Neuro Denies abnormal gait, Denies numbness and Denies weakness Endo Denies palpitations Physical Exam Vital Signs: Last Vital Signs Pulse 62 02/08/25 08:22 BP 120/62 02/08/25 08:22 BMI result Body Mass Index 30.0 Const General: comfortable and no acute distress Orientation/consciousness: patient oriented x3 HEENT Other: Unremarkable Head: Yes normal to inspection Neck Neck: Yes normal visual inspection Chest Chest palpation & inspection: normal inspection of the chest Resp Auscultation: clear to auscultation bilaterally Cardio Palpation: normal PMI Heart sounds: S1 normal heart sound present, S2 normal heart sound present, no gallops, no murmurs and no rubs GI Palpation (GI): Soft to palpation Back/Spine/Pelvis Other: unremarkable Skin General skin exam: no rashes or lesions noted Neuro General: patient oriented x3 Extrem General: Yes normal to inspection Psych Mental Status: mental status grossly normal Office Procedures EKG Details: EKG with atrial fibrillation at 62/Min; cannot exclude old septal infarct but could be from body habitus; [place]. [id number], Complete Assessment & Plan Assessment & Plan (1) Persistent atrial fibrillation: Code(s): I48.19 - Other persistent atrial fibrillation Category: Medical Plan: Remains on metoprolol/Eliquis. (2) Essential hypertension: Code(s): I10 - Essential (primary) hypertension Category: Medical Plan: Stable. On lisinopril, hydralazine, spironolactone. (3) Non-rheumatic mitral regurgitation: Code(s): I34.0 - Nonrheumatic mitral (valve) insufficiency Category: Medical Plan: Last echocardiogram shows [id number] mitral regurgitation. Not hemodynamically significant. We can recheck as it has been many years. (4) Pulmonary hypertension: Code(s): I27.20 - Pulmonary hypertension, unspecified Category: Medical Plan: Last echocardiogram had mild pulmonary hypertension. Probably all from atrial fibrillation as well as left heart diastolic dysfunction. No specific management. Can recheck echocardiogram before next visit. Orders: Orders CA echo transthoracic complete 1 Year I48.19 - Other persistent atrial fibrillation Coding Level of Care Code Est Pt Level 4 (14388) Complex EM visit Add On G2211 Diagnoses Persistent atrial fibrillation I48.19 Essential hypertension I10 Non-rheumatic mitral regurgitation I34.0 Pulmonary hypertension I27.20 CPT Codes EKG - CPT: 37985-[id number], Complete ([id number])
== END 2025-02-08 08:37 | disposition home or self-care (01) ==
LOC: HO.HCS 07:50
PROVIDERS: PCP Internal Medicine; Visit Provider Internal Medicine
DX: I48.19 Other persistent atrial fibrillation (principal); I10 Essential (primary) hypertension; I34.0 Nonrheumatic mitral (valve) insufficiency; I27.20 Pulmonary hypertension, unspecified
CPT/HCPCS: 93010; 99214

== ENCOUNTER → 2025-02-08 07:50 | Outpatient (BNVA) | payer BC, MEDICARE, SELFPAY | PROVIDERS: PCP Internal Medicine; Visit Provider Internal Medicine | DX: I48.19 Other persistent atrial fibrillation (principal); I34.0 Nonrheumatic mitral (valve) insufficiency | CPT/HCPCS: 93005 ==

== ENCOUNTER 2025-02-23 08:42 | Outpatient (AMB) | payer BC, MEDICARE, SELFPAY ==
--- NOTE | 2025-02-23 08:44 | A.OFFPC_ITS ---
Vital Signs 02/23/25 08:45 Height 5 ft 7 in Weight 190 lb 6 oz BMI 29.8 BP 122/64 Blood Pressure Location Lt brachial Position Sitting Pulse 67 Pulse Source Pulse Oximeter Temp 97.0 F Temp Source Temporal Artery Scan Pulse Oximetry (%) 97 Oxygen Delivery Method Room Air Intake Visit Reasons: Annual exam Allergies amlodipine Adverse Reaction (Intermediate, Verified 02/23/25 08:47) leg swelling Environmental Allergy (Mild, Uncoded 02/23/25 08:47) ITCHY EYES pollen Allergy (Mild, Uncoded 02/23/25 08:47) Itchy Eyes RAGWEED Allergy (Mild, Uncoded 02/23/25 08:47) STUFFY NOSE WATERY EYES weed Allergy (Mild, Uncoded 02/23/25 08:47) Itchy Eyes Medication List - Last Reconciled 02/23/25 by Demetri Salazar MD allopurinol 100 mg PO DAILY apixaban (Eliquis) 5 mg PO BID blood pressure monitor (Blood Pressure Kit) As directed finasteride 5 mg PO DAILY 90 days hydralazine 10 mg PO BID 90 days hydrocortisone-acetic acid 1-2 % 4 drps otic (ears) TID lisinopril 40 mg PO DAILY metoprolol succinate ER 100 mg PO DAILY 90 days spironolactone 50 mg PO DAILY Tobacco use date assessed: 02/23/25 Fall risk assessment: No Falls in past year Last assessed Fall Risk: 02/23/25 Dental Screening Dental Screen Date: 02/23/25 Did you have a dental visit in the last 12 months?: No Did you have a dental problem in the last 6 months where you did not have access to dental care?: No Was dental information given to patient?: Patient has dentist HPI Annual exam HPI Details occ loss of balance, rectal exam guaiac negative prostate N PFSH Medical History Vitamin B12 deficiency Vitamin B12 deficiency Anemia Otitis externa Adult general medical exam Eye exam, routine Screening for diabetes mellitus Testicle swelling Pulmonary hypertension Persistent atrial fibrillation Leg edema History of rib fracture Gout Obesity (BMI 30-39.9) BPH (benign prostatic hyperplasia) Osteoarthritis Chronic prostatitis Cervical radiculopathy due to degenerative joint disease of spine GERD (gastroesophageal reflux disease) Vitamin D deficiency Hypercholesterolemia Surgical History History of colonoscopy History of prostate biopsy History of inguinal hernia repair Family History Father CVD (cardiovascular disease) Mother CVD (cardiovascular disease) Diabetes Sister No problems noted. Son No problems noted. Daughter No problems noted. Social History (Updated 02/23/25 @ 09:34 by Demetri Salazar MD) Household Members: None Housing: Other (Staying with son) Do you presently have visiting nurse or other home services: No Alcohol intake: current Alcohol intake frequency: a few times a week Alcohol type: beer Comment: REPORT GIVEN BY MARIA ESTHER PALAFOX RN weekend mix drinks x2 , Patient Tobacco Use Status: Never used Tobacco Tobacco use type: Cigarette e-Cigarette/Vaping Use: Never Used Second Hand Smoke Exposure: No service: No Current occupational status: employed Cognitive needs: No Hearing needs: No Vision needs: Yes Questionnaire PHQ-9 Over the last 2 weeks, how often have you been bothered by any of the following problems? 1. Little interest or pleasure in doing things: not at all 2. Feeling down, depressed, or hopeless: not at all 3. Trouble falling or staying asleep, or sleeping too much: not at all 4. Feeling tired or having little energy: not at all 5. Poor appetite or overeating: not at all 6. Feeling bad about yourself - or that you are a failure or have let yourself or your family down: not at all 7. Trouble concentrating on things, such as reading the newspaper or watching television: not at all 8. Moving or speaking so slowly that other people could have noticed. Or the opposite - being so fidgety or restless that you have been moving around a lot more than usual: not at all 9. Thoughts that you would be better off or of hurting yourself in some way: not at all Total score: 0 Source: Developed by Drs. Joe Rosenbaum, Eva Waggoner, Devyn Wright and colleagues, with an educational dieter from [employer]. Thrive Questionnaire Date Thrive assessed: 08/04/24 I am a: Patient What is your living situation today?: I have a steady place to live Within the past 12 months, did the food you bought not last and you didn't have the money to get more?: Never true Within the past 12 months, did you worry whether your food would run out before you got money to buy more?: Never true Do you have trouble paying for medicines?: No Do you have trouble getting transportation to medical appointments?: No Do you have trouble paying your heating and electricity bill?: No Do you have trouble taking care of your child, family member or friend?: No Do you have trouble with day-to-day activities such as bathing, preparing meals, shopping, managing finances, etc.?: No Are you currently unemployed and looking for a job?: No Are you interested in more education?: No Please select the resources that you would like help with: None Currently or been in a relationship where the following occur: No concerns reported THRIVE Score: 0 AUDIT C Alcohol Use Questionnaire (AUDIT-C) 1. How often do you have a drink containing alcohol?: 2-4 times a month 2. How many drinks containing alcohol do you have on a typical day when you are drinking?: 1 or 2 3. How often do you have six or more drinks on one occasion?: Never Total Score: 2 SHRUTI-7 AMB Questionnaire SHRUTI-7 Date SHRUTI - 7 assessed: 08/04/24 Feeling nervous, anxious, or on edge: 0 = Not at all Not being able to stop or control worryin = Not at all Worrying too much about different things: 0 = Not at all Trouble relaxin = Not at all Being so restless that it is hard to sit still: 0 = Not at all Becoming easily annoyed or irritable: 0 = Not at all Feeling afraid as if something awful might happen: 0 = Not at all Total SHRUTI-7 score (0-4 normal; 5-9 mild; 10-14 moderate; 15-21 severe): 0 Source: Developed by Drs. Joe Rosenbaum, Eva Waggoner, Devyn Wright and colleagues, with an educational dieter from [employer]. Review of Systems Const Denies poor appetite and Denies weakness Eyes Denies no additional complaints ENT Reports Normal hearing present, Denies dizziness, Denies nasal congestion, Denies tinnitus and Denies sore throat Card Denies chest pain, Denies syncope, Denies rapid heart rate and Denies dyspnea Resp Denies cough and Denies dyspnea GI Denies change in stool character, Reports constipation, Denies diarrhea, Denies nausea and Denies vomiting Denies dysuria and Denies urinary frequency Neuro Reports Normal hearing present, Denies confusion, Denies dizziness, Denies syncope and Denies weakness Psych Denies confusion Physical exam (Primary Care) Vital Signs: Last Vital Signs Temp 97.0 F 02/23/25 08:45 Pulse 67 02/23/25 08:45 BP 122/64 02/23/25 08:45 Pulse Ox 97 02/23/25 08:45 Oxygen Delivery Method Room Air 02/23/25 08:45 BMI result Body Mass Index 29.8 Tobacco/Smoking Status: Tobacco use Status Tobacco use date assessed 02/23/25 02/23/25 08:48 Patient Tobacco Use Status Never used Tobacco 02/23/25 09:34 Tobacco use type Cigarette 02/23/25 09:34 e-Cigarette/Vaping Use Never Used 02/23/25 09:34 PHQ-9: PHQ-9 Score PHQ-9: Total score 0 02/23/25 09:28 Thrive Assessment: Date of Thrive Assessment Date Thrive assessed 08/04/24 02/23/25 08:48 Currently or been in a relationship where the following occur: No concerns reported Const General: alert and awake; No confusion Orientation/consciousness: No confusion HENMT Head: Yes normocephalic Ears: external ears normal and TM's normal bilaterally Face and sinus: Yes normal facial exam Mouth: moist mucous membranes Throat: Yes tonsils normal Eyes Conjunctivae: conjunctivae normal Pupils: Equal, round and reactive pupils present and Pupil accommodation reflex normal Direct Ophthalmoscopy: normal light reflex Neck Neck: No lymphadenopathy Thyroid: Thyroid normal Chest Chest palpation & inspection: normal inspection of the chest Resp Effort & Inspection: normal respiratory effort and no audible wheezes Auscultation: clear to auscultation bilaterally, no crackles, no wheezes and lung sounds not diminished Cardio Rate: regular rate Rhythm: regular rhythm Peripheral pulses: radial pulses present and dorsalis pedis present GI Palpation (GI): no masses Auscultation: normal bowel sounds and normoactive bowel sounds Rectal Exam - Male: Yes deferred Skin General skin exam: no rashes or lesions noted Rashes: no rashes Neuro General: deep tendon reflexes 2+ bilaterally and No confusion Cranial nerves: Yes Equal, round and reactive pupils present, Yes Midline tongue present, Yes Normal hearing present and Yes Ability to bilaterally elevate shoulders present Cognition (Neuro): normal cognition Gait exam (Neuro): Normal gait present Motor exam (neuro): 5/5 motor strength present throughout Deep tendon reflexes (DTR's): Right brachioradialis reflex intensity grade: 2+, Left brachioradialis reflex intensity grade: 2+, Right patellar reflex intensity grade: 2+ and Left patellar reflex intensity grade: 2+ Extrem General: No edema Office Procedures Flu Questionnaire Does the patient have a severe egg allergy?: No Does the patient have severe life threatening allergies?: No Does the patient have a fever or illness today?: No Has the patient ever had Guillain-Paradise Syndrome?: No Has the patient ever had any past reaction to a flu shot?: No Immunizations Fluarix [id number] (PF) 45 mcg (15 mcg x 3)/0.5 mL IM syringe Performing Provider: Demetri Salazar MD [facility] Administered by: Mary Ann Garcia CMA on 02/23/25 08:54 Dose Route Admin Location Dispensed Lot Number Expiration Date NDC Assistant Coach 0.5 mL IM Left Deltoid 0.5 mL [id number] 10/17/25 [id number] [employer] VIS Given Date VIS Provided VIS Publication Date 02/23/25 Single Vaccine 24 Eligibility Eligibility Date Funding Source Not [facility] Eligible 02/23/25 Private Coding Level of Care Code Est Pt Prev Care >65y(43516) Diagnoses Annual physical exam Z00.00 Essential hypertension I10 Persistent atrial fibrillation I48.19 Hypercholesterolemia E78.00 Impaired glucose tolerance R73.02 Vitamin B12 deficiency E53.8 Gastroesophageal reflux disease without esophagitis K21.9 Esophagitis presence: without esophagitis Benign prostatic hyperplasia with urinary frequency N40.1; R35.0 Lower urinary tract symptom detail: urinary frequency Lower urinary tract symptom presence: symptoms present Assessment & Plan Assessment & Plan (1) Annual physical exam: Code(s): Z00.00 - Encounter for general adult medical examination without abnormal findings Category: Medical Plan: Patient is advised to eat healthy, keep well hydrated, keep active and have adequate sleep. (2) Essential hypertension: Code(s): I10 - Essential (primary) hypertension Category: Medical Plan: Continue with blood pressure medication. Decrease salt intake and exercise patient is on hydralazine 10 mg twice a day lisinopril (3) Persistent atrial fibrillation: Code(s): I48.19 - Other persistent atrial fibrillation Category: Medical Plan: Continue with anticoagulation and metoprolol (4) Hypercholesterolemia: Code(s): E78.00 - Pure hypercholesterolemia, unspecified Category: Medical Plan: Avoid fried foods, chicken skin, eggs, butter margarine, pastries and meat. Be it pork or beef they have a lot of cholesterol (5) Impaired glucose tolerance: Code(s): R73.02 - Impaired glucose tolerance (oral) Category: Medical Plan: Decrease the amount of carbohydrate intake, pasta, bread, rice and potatoes are all sugar and that is aside from all the sweet stuff, remember that fruits are good but they are Sweet also. (6) Vitamin B12 deficiency: Code(s): E53.8 - Deficiency of other specified B group vitamins Category: Medical Plan: Discussed about taking vitamin B12 1000 mcg once a day (7) GERD (gastroesophageal reflux disease): Code(s): K21.9 - Gastro-esophageal reflux disease without esophagitis Category: Medical Qualifiers: Esophagitis presence: without esophagitis Qualified Code(s): K21.9 - Gastro-esophageal reflux disease without esophagitis Plan: Avoid the foods that causes that usually spicy foods, tomato products, juices, coffee, soda and foods that your sensitive to. After eating do not lie down, allow 3-4 hours before in lie down. And keep the head of bed above 30 degrees to avoid the acid from going up. (8) BPH (benign prostatic hyperplasia): Code(s): N40.0 - Benign prostatic hyperplasia without lower urinary tract symptoms Category: Medical Qualifiers: Lower urinary tract symptom detail: urinary frequency Lower urinary tract symptom presence: symptoms present Qualified Code(s): N40.1 - Benign prostatic hyperplasia with lower urinary tract symptoms; R35.0 - Frequency of micturition Plan: Stable Plan History of Present Illness Health Maintenance Social History Review of Systems Physical Exam General: Cooperative, healthy appearing, comfortable, no acute distress and well developed Orientation: Patient oriented x3 Limitations: No limitations Head: Normal to inspection Ears: Hearing grossly normal bilaterally Nose: Normal external nose present Face and sinus: Normal facial exam Eyes: Appearance normal, both eyes and all related structures Neck: Normal visual inspection and Yes full ROM Respiratory: Normal respiratory effort and able to speak in complete sentences. Clear to auscultation bilaterally Cardiovascular: Regular rate and rhythm. Normal S1 and S2 GI: Normal to inspection. Soft to palpation and nontender Skin: No rashes or lesions noted Neuro: Patient oriented x3 Extremities: Normal to inspection Results Plan Patient was informed and verbally consented to the use of an ambient scribe for clinic note documentation during this visit. Discussion Notes Patient Instructions Orders: Orders Hemoglobin A1c 6 Months R73.02 - Impaired glucose tolerance (oral) Free T4 (Free Thyroxine) 6 Months R73.02 - Impaired glucose tolerance (oral) Comprehensive Met. Panel 6 Months R73.02 - Impaired glucose tolerance (oral) Complete Blood Count Auto Diff 6 Months R73.02 - Impaired glucose tolerance (oral) Lipid Panel 6 Months E78.00 - Pure hypercholesterolemia, unspecified, R73.02 - Impaired glucose tolerance (oral) Magnesium 6 Months R73.02 - Impaired glucose tolerance (oral) Influenza [id number] Immunization Today Z23 - Encounter for immunization Thyroid Stimulating Hormone 6 Months R73.02 - Impaired glucose tolerance (oral) Vitamin B12 and Folate 6 Months R73.02 - Impaired glucose tolerance (oral) Prostate Specific Antigen Scr 6 Months R73.02 - Impaired glucose tolerance (oral)
[2025-02-23 08:45] VITALS: BP 122/64; PULSE 67; TEMP 36.1; O2SAT 97; BMI 29.8
--- OUTSIDE RECORDS SUMMARY | 2025-02-23 09:14 | XMS_ITS | Patient Health Record ---
Author Organization [facility] Address [address] [place] [id number] Care Team Providers Care Computer Artist Name Role Phone Po Demetri MORRISON Primary Care Provider eCsar Singh Jr Unavailable Allergies Allergen (clinical drug [...] Status Risk Notes Problem Colon cancer screening (736565715) Colon cancer screening (Z12.11) Active confirmed Problem Long-term current use of anticoagulant (186083719) longterm (current) use of anticoagulants (Z79.01) Active confirmed Problem Pre-procedure evaluation check (730070965) Encounter for other preprocedural examination (Z01.818) Active confirmed Plan Of Treatment Future Test Test Name Order Date COLONOSCOPY 10/03/2020 Insurance Providers Payer Name Payer Address Payer Phone Subscriber Number Group Number Insured Name Patient Relationship to Insured Coverage Start Date Coverage End Date [facility] [address] [facility] [phone] [id number] GEORGE JOHN Self - patient is the insured Medical (General) History Medical History History ICD Code hypertension Gout Atrial fibrillation BPH with elevated PSA CHF Osteoarthritis Degenerative joint disease Vitamin D deficiency Surgical History Surgery Date(Month/Year) hernia repair - groin 2011
== END 2025-02-23 09:52 | disposition home or self-care (01) ==
LOC: HO.HMCH 08:43
PROVIDERS: PCP Internal Medicine; Visit Provider Internal Medicine
DX: Z00.00 Encounter for general adult medical examination without abnormal findings (principal); I10 Essential (primary) hypertension; I48.19 Other persistent atrial fibrillation; E78.00 Pure hypercholesterolemia, unspecified; R73.02 Impaired glucose tolerance (oral); E53.8 Deficiency of other specified B group vitamins; K21.9 Gastro-esophageal reflux disease without esophagitis; N40.1 Benign prostatic hyperplasia with lower urinary tract symptoms; R35.0 Frequency of micturition; Z23 Encounter for immunization

== ENCOUNTER → 2025-02-23 08:42 | Outpatient (BNVA) | payer BC, MEDICARE, SELFPAY | PROVIDERS: PCP Internal Medicine; Visit Provider Internal Medicine | DX: Z00.00 Encounter for general adult medical examination without abnormal findings (principal); I10 Essential (primary) hypertension; I48.19 Other persistent atrial fibrillation; E78.00 Pure hypercholesterolemia, unspecified; R73.02 Impaired glucose tolerance (oral); E53.8 Deficiency of other specified B group vitamins; K21.9 Gastro-esophageal reflux disease without esophagitis; N40.1 Benign prostatic hyperplasia with lower urinary tract symptoms; R35.0 Frequency of micturition; Z23 Encounter for immunization | CPT/HCPCS: 90471; 90656; 96127 ==

== ENCOUNTER 2025-03-10 08:40 | Outpatient (AMB) | payer MEDICARE, BC, SELFPAY ==
--- OUTSIDE RECORDS SUMMARY | 2025-03-10 08:44 | XMS_ITS | Patient Health Record ---
Author Organization [facility] Address [address] [place] [id number] Care Team Providers Care Lpta Name Role Phone Po Demetri MORRISON Primary Care Provider Cesar Singh Jr Unavailable [phone] Allergies Allergen (clinical drug ingredient) Drug/Non Drug Allergy documented on EMR Reaction Allergy Type Onset Date Status amlodipine Amlodipine Besylate Unknown Drug Allergy Active Reason For Referral No Information Medications Medication SIG (Take, Route, Frequency, Duration) Notes Start Date End Date Status Lisinopril 40 MG Tablet TAKE 1 TABLET BY MOUTH EVERY DAY Oral; Duration: 90 Active Eliquis 5 MG Tablet TAKE 1 TABLET BY BENJAMIN TH TWICE A DAY Oral; Duration: 90 Active Spironolactone 50 MG Tablet TAKE 1 TABLE T BY MOUTH EVERY DAY Oral; Duration: 90 Active Furosemide 20 MG Tablet TAKE 1/2 TABLET BY MOUTH IN THE MORNING FOR 30 DAYS FOR EDEMA AND TAKE 1/2 TABLET ONCE DAILY Oral; Duration: 30 Active Vitamin D Active Tylenol PRN Active MiraLax (colon prep) 8.3 ounce ((238) grams mixed with Gatorade or Crystal Light orally begin at 5:00 p.m. the day before the procedure; Duration: 1 day 10/03/2020 Active hydrALAZINE HCl 10 MG Tablet 1 tablet wi th food Orally Four times a day; Duration: 30 day(s) 10/03/2020 Active Allopurinol 100 MG Tablet TAKE 1 TABLET BY MOUTH EVERY DAY Oral; Duration: 90 Active Metoprolol Succinate ER 100 MG Tablet Extended Release 24 Hour TAKE 1 TABLET BY MOUTH EVERY DAY Oral; Duration: 90 Active Immunizations Vaccine Route Administration Date Status Comme nts Influenza Unknown 02/01/2020 Administered Social History Tobacco Use: Social History Observation Description Date Details (start date - stop date) Never Smoker NA - NA Social History Drugs/Alcohol: Social Info Question Answer Notes Alcohol Screen Did you have a drink containing alcohol in the past year? 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) use of anticoagulants (Z79.01) Active confirmed Problem Pre-procedure evaluation check (656349974) Encounter for other preprocedural examination (Z01.818) Active confirmed Plan Of Treatment Future Test Test Name Order Date COLONOSCOPY 10/03/2020 Insurance Providers Payer Name Payer Address Payer Phone Subscriber Number Group Number Insured Name Patient Relationship to Insured Coverage Start Date Coverage End Date [facility] [address] [facility] [place] [phone] [id number] GEORGE JOHN Self - patient is the insured Medical (General) History Medical History History ICD Code hypertension Gout Atrial fibrillation BPH with elevated PSA CHF Osteoarthritis Degenerative joint disease Vitamin D deficiency Surgical History Surgery Date(Month/Year) hernia repair - groin 2011
--- NOTE | 2025-03-10 09:15 | MHC.OFFVIS ---
Intake Visit Reasons: 1Y PSA/PVR Intake Note: Patient Is Present for 1Y PSA/PVR Urology Med: Finasteride Antibiotic Allergy: None Blood Thinner: Eliquis PSA- 1.67 01/30/2025 A1C- 5.6 01/30/2025 Last PVR:0ml PVR: 30ml Accompanied by: Self / Same As Patient Allergies amlodipine Adverse Reaction (Intermediate, Verified 03/10/25 09:17) leg swelling Environmental Allergy (Mild, Uncoded 03/10/25 09:17) ITCHY EYES pollen Allergy (Mild, Uncoded 03/10/25 09:17) Itchy Eyes RAGWEED Allergy (Mild, Uncoded 03/10/25 09:17) STUFFY NOSE WATERY EYES weed Allergy (Mild, Uncoded 03/10/25 09:17) Itchy Eyes HPI Comments Details: Heroindo a pleasant male. He is a patient of Dr. TORRES. He is seen for the following urologic conditions - lower urinary tract symptoms - elevated PSA Yearly review Continue good response to finasteride Lab work remains low Finasteride Thursday PVR 30 cc May follow with primary care. Can be seen if PSA were to very. Lower Urinary Tract Baseline mild LUTS Predominantly obstructive Combination nocturia with mild weakness of stream MRI 2019 50 g prostate Current therapy finasteride Elevated PSA Longstanding Baseline PSA running between 7-9 historically - had been in the 2-3 range since 2018 Prostate biopsies 2012 NAD, 2018 NAD Laboratory investigations - 07/08 2.3, 01/08 5.4, 08/09 1.3, 02/08 1.2, 02/09 1.2, 02/10 3.1, 02/11 1.7 Imaging - 01/08 MRI 50 g prostate, question of PI-RADS 3 lesion. No definitive highly suspicious lesion PFSH Medical History Vitamin B12 deficiency Vitamin B12 deficiency Anemia Otitis externa Adult general medical exam Eye exam, routine Screening for diabetes mellitus Testicle swelling Pulmonary hypertension Persistent atrial fibrillation Leg edema History of rib fracture Gout Obesity (BMI 30-39.9) BPH (benign prostatic hyperplasia) Osteoarthritis Chronic prostatitis Cervical radiculopathy due to degenerative joint disease of spine GERD (gastroesophageal reflux disease) Vitamin D deficiency Hypercholesterolemia Surgical History History of colonoscopy History of prostate biopsy History of inguinal hernia repair Family History Father CVD (cardiovascular disease) Mother CVD (cardiovascular disease) Diabetes Sister No problems noted. Son No problems noted. Daughter No problems noted. Social History Household Members: None Housing: Other (Staying with son) Do you presently have visiting nurse or other home services: No Alcohol intake: current Alcohol intake frequency: a few times a week Alcohol type: beer Comment: REPORT GIVEN BY MARIA ESTHER PALAFOX RN weekend mix drinks x2 , Patient Tobacco Use Status: Never used Tobacco Tobacco use type: Cigarette e-Cigarette/Vaping Use: Never Used Second Hand Smoke Exposure: No service: No Current occupational status: employed Cognitive needs: No Hearing needs: No Vision needs: Yes Review of Systems Const Denies chills and Denies fever(s) Card Reports no additional complaints and Denies syncope Resp Denies cough GI Denies abdominal pain and Denies heartburn Reports as per HPI and Denies change in libido Neuro Denies syncope Psych Denies change in libido Endo Denies change in libido Physical Exam Const General: cooperative, healthy appearing, comfortable and no acute distress Orientation/consciousness: patient oriented x3 HEENT Face and sinus: Yes normal facial exam Mouth: moist mucous membranes Neck Neck: Yes normal visual inspection, Yes full ROM and Yes trachea midline Chest Chest palpation & inspection: normal inspection of the chest Resp Effort & Inspection: normal respiratory effort, able to speak in complete sentences and no respiratory distress GI Inspection: Yes normal to inspection Back/Spine/Pelvis Cervical Spine: normal cervical lordosis Thoracic/Lumbar Spine: thoracic and lumbar spine normal to inspection Skin General skin exam: no rashes or lesions noted Neuro General: patient oriented x3, gait normal, tone normal and moves all extremities Extrem General: Yes normal to inspection and Yes capillary refill normal Office Procedures Post Void Residual Post Residual Void Post Void Residual (PVR): 30 [id number] Void Residual by ultrasound Assessment & Plan Assessment & Plan (1) BPH (benign prostatic hyperplasia): Code(s): N40.0 - Benign prostatic hyperplasia without lower urinary tract symptoms Category: Medical Qualifiers: Lower urinary tract symptom presence: symptoms present Lower urinary tract symptom detail: urinary frequency Qualified Code(s): N40.1 - Benign prostatic hyperplasia with lower urinary tract symptoms; R35.0 - Frequency of micturition (2) Elevated PSA: Code(s): R97.20 - Elevated prostate specific antigen [PSA] Category: Medical Plan Stable May follow with primary care See p.r.n. Orders: Orders AMB Post Void Residual by ultrasound Today N40.1 - Benign prostatic hyperplasia with lower urinary tract symptoms, R35.0 - Frequency of micturition Medications: Refilled finasteride Take medication M/W/F 5 mg PO DAILY 90 tabs 2RF 90 days N13.8 - Other obstructive and reflux uropathy, N40.1 - Benign prostatic hyperplasia with lower urinary tract symptoms Patient Instructions: This note is constructed using voice recognition software. While every effort has been made to ensure accuracy immigration investigator errors may have been included. Imaging studies, laboratory and physical exam results were discussed and reviewed in detail. No major barriers to patient understanding were identified. An opportunity to ask questions regarding the treatment plan was provided. All questions were answered. The patient expressed understanding and agreement with the above treatment plan. The patient is aware they should contact our office by phone for worsening of their current condition or the appearance of new urologic symptoms. Compliance is encouraged with any medications and followup testing that is ordered. It is a privilege to participate in the urologic care of your patient. If you have any questions or concerns regarding treatment for the above conditions, or other urologic issues, please do not hesitate to contact me. The office telephone contact is [phone]. Sincerely, Dr Dom Ortiz MD, [facility] - Urology Compassionate Specialist Care for the Genitourinary System Coding Level of Care Code Est Pt Level 4 (49822) Diagnoses Benign prostatic hyperplasia with urinary frequency N40.1; R35.0 Lower urinary tract symptom presence: symptoms present Lower urinary tract symptom detail: urinary frequency Elevated PSA R97.20 CPT Codes Post Residual Void - PVR CPT Code: [id number] Void Residual by ultrasound ([id number])
== END 2025-03-10 09:31 | disposition home or self-care (01) ==
LOC: HO.HUSH 08:41
PROVIDERS: PCP Internal Medicine; Visit Provider Urology
DX: N40.1 Benign prostatic hyperplasia with lower urinary tract symptoms (principal); R35.0 Frequency of micturition; R97.20 Elevated prostate specific antigen [PSA]
CPT/HCPCS: 99214

== ENCOUNTER → 2025-03-10 08:40 | Outpatient (BNVA) | payer BC, MEDICARE, SELFPAY | PROVIDERS: PCP Internal Medicine; Visit Provider Urology | DX: N40.1 Benign prostatic hyperplasia with lower urinary tract symptoms (principal); R35.0 Frequency of micturition; R97.20 Elevated prostate specific antigen [PSA]; Z79.899 Other long term (current) drug therapy | CPT/HCPCS: 51798; 99212 ==